=== PATIENT | female | born 1940 | race Caucasian/White ===

== ENCOUNTER 2018-04-28 10:22 | Emergency (ER) | payer MEDICARE, BC ==
[2018-04-28 10:39] VITALS: BP 132/88
--- NOTE | 2018-04-28 11:21 | UC ---
Ear Complaint HPI - History of Current Complaint Chief Complaint: UCEar Stated Complaint: LEFT EAR PAIN Time Seen by Provider: 04/28/18 10:38 Hx Obtained From: Patient ?: No Onset/Duration: Sudden Onset Severity Initially: Moderate Severity Currently: Moderate Pain Intensity: 0 Aggravating Factors: Nothing Alleviating Factors: OTC Meds Associated Signs/Symptoms: Positive: Hearing Loss - hearing loss in the left ear for some time. never had it evaluated - Allergies/Home Medications Allergies/Adverse Reactions: Allergies Allergy/AdvReac Type Severity Reaction Status Date / Time dust, animals Allergy Unknown Uncoded 04/28/18 10:40 Reaction Details Home Medications: Home Medications FLUoxetine CAP* [Prozac CAP*] 20 mg PO DAILY 04/28/18 [History Confirmed ] Fluticasone NASAL SPRAY 50MCG* [Flonase NASAL SPRAY 50MCG*] 1 spray BOTH NARES DAILY 04/28/18 [History Confirmed 04/28/18] PHENobarbital TAB(*) 97 mg PO BEDTIME 04/28/18 [History Confirmed 04/28/18] PMH/Surg Hx/FS Hx/Imm Hx Previously Healthy: Yes Neurological History: Seizures - Surgical History Surgical History: Yes Surgery Procedure, Year, and Place: right meniscus - Social History Alcohol Use: Daily Alcohol Amount: 1 wine Substance Use Type: None Smoking Status (MU): Never Smoked Tobacco Review of Systems Constitutional: Negative Skin: Negative Eyes: Negative ENT: Ear Ache - hearing loss for several months, pain in the left ear only began yesterday, Other Gastrointestinal: Negative Genitourinary: Negative Motor: Negative Neurovascular: Negative Musculoskeletal: Negative Neurological: Negative, Other - hx. of seizures Psychological: Negative Is Patient Immunocompromised?: No All Other Systems Reviewed And Are Negative: Yes Physical Exam Triage Information Reviewed: Yes Appearance: Well-Appearing Vital Signs: Initial Vital Signs Temp 36.6 C 04/28/18 10:31 Pulse 89 04/28/18 10:31 Resp 20 04/28/18 10:31 BP 132/88 04/28/18 10:31 Pulse Ox 96 04/28/18 10:31 Vital Signs Reviewed: Yes Eye Exam: Normal Eyes: Positive: Conjunctiva Clear ENT: Positive: TM red - left tm with redness, probable effusion after ceruminous impaction removed Dental Exam: Normal Neck exam: Normal Neck: Positive: Supple Respiratory Exam: Normal Respiratory: Positive: Chest non-tender, Lungs clear Cardiovascular Exam: Normal Cardiovascular: Positive: RRR Abdominal Exam: Normal Abdomen Description: Positive: Nontender Bowel Sounds: Positive: Present Psychological Exam: Normal Ear Complaint Course/Dx - Course Course Of Treatment: left ear lavaged with saline after peroxide instilled, - Differential Dx/Diagnosis Differential Diagnosis/HQI/PQRI: Otitis Media Provider Diagnoses: otitis media left. ceruminous impaction Discharge - Sign-Out/Discharge Documenting (check all that apply): Patient Departure - Discharge Plan Condition: Good Disposition: HOME Prescriptions: Amoxicillin PO (*) [Amoxicillin 875 MG (*)] 875 mg PO BID #14 tab Patient Education Materials: Ear Infection (ED) Referrals: Yen Bills MD [Primary Care Provider] - - Billing Disposition and Condition Condition: GOOD Disposition: Home
== END 2018-04-28 11:30 | disposition home or self-care (01) ==
LOC: UCCORT 10:22
DX: H66.92 Otitis media, unspecified, left ear (principal); H61.22 Impacted cerumen, left ear; R56.9 Unspecified convulsions; Z91.09 Other allergy status, other than to drugs and biological substances; Z79.899 Other long term (current) drug therapy
CPT/HCPCS: 99213; G0463

== ENCOUNTER 2019-04-26 09:18 | Emergency (ER) | payer MEDICARE, BC ==
--- OUTSIDE RECORDS SUMMARY | 2019-04-26 09:30 | XMS REPORT | Continuity of Care Document ---
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 Onset: 02/27/2011 congestive heart failure Seizure Yen Bills M.D. Onset: 02/27/2011 Vertigo Dizziness Yen Bills M.D. 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 testing Dicyclomine HCL 1 by mouth three 90caps Yen Bills, 05/20/2018 10mg times a day M.D. Capsules Phenobarbital 1 by mouth at 90tabs Yen Bills, 05/10/2017 97.2mg bedtime for M.D. Tablets seizures code c Flonase Allergy Relief 1 spray to each 6units Yen Bills, 06/22/2015 nare every day M.D. 50mcg/Act Suspension Prozac 2 by mouth every 60caps Yen Bills, 09/17/2007 20mg Capsules day M.D. Crestor 1 by mouth every 30tabs Yen Bills, 09/06/2005 10mg Tablets day M.D. Calcium With D 1 po bid Yen Bills, 08/14/2005 600mg M.D. Tablets History Medications Azithromycin take 2 tablets 6tabs E78.2 Yen Bills, 07/15/2018 - 250mg the first day; M.D. 02/18/2019 Tablets then 1 tablet daily for 4 days. Azithromycin take 2 tablets 6tabs J01.90 Yen Bills, 08/04/2015 - 250mg the first day; M.D. 05/21/2017 Tablets then 1 tablet daily for 4 days. Bentyl 1 by mouth 3 90caps Yen Bills, 06/02/2015 - 10mg Capsules times daily M.D. 07/10/2017 Naproxen 1 by mouth twice 60tabs 721.00 Yen Bills, 06/24/2014 - 500mg Tablets a day as needed M.D. 07/10/2017 Zostavax injection as 1units Yen Bills, 02/18/2013 - ordered M.D. 03/25/2014 80988Hhj/0.65ML Solution Rec Azithromycin Take 2 Tablets 6tabs 461.9 Yen Bills, 08/21/2012 - 250mg The First Day; M.D. 02/25/2015 Tablets Then 1 Tablet Daily For 4 Days. Azithromycin 1 po qd 5tabs Yen Bills, 11/09/2011 - 500mg M.D. 02/20/2012 Tablets Flonase 1 spray to each 6units Yen Bills, 02/27/2011 - 50mcg/Act nare qd M.D. 06/22/2015 Suspension Fexofenadine/Pseudoep take 1 tablet 60units Yen Bills, 07/20/2010 - hedrine twice a day if M.D. 02/25/2015 60-120mg TB12 needed Scopalamine Patch 1 to skin as 10units Yen Bills, 08/03/2009 - needed daily M.D. 02/17/2010 0.33MH/24 HRS Amoxicillin 1 po tid 21caps 451.2 Yen Bills, 07/15/2009 - 250mg M.D. 02/17/2010 Capsules Lisinopril 1 po qd 30tabs 402.10 Yen Bills, 07/01/2009 - 2.5mg M.D. 07/15/2009 Tablets Phenobarbital 1 tab every night 90tabs Yen Bills, 07/01/2009 - 64.8mg at bedtime, M.D. 05/10/2017 Tablets seizure disorder code C Helena-D 12 Hour take 1 tablet 60units Yen Bills, 03/10/2009 - twice a day if M.D. 04/01/2009 12Hour TB12 needed Azithromycin 1 PO qd 5tabs Yen Bills, 12/28/2008 - 500mg M.D. 04/01/2009 Tablets Helena D one po bid prn 60tabs Yen Bills, 02/03/2008 - 60mg;120 mg M.D. 04/07/2014 Tablets Phenobarbital 1 po qhs 30tabs Yen Bills, 09/17/2007 - 60mg M.D. 07/01/2009 Tablets Prozac 1 po qd 30caps 272.40 Yen Bills, 09/17/2007 - 20mg Capsules M.D. 02/18/2008 Zithromax Tri-Nikita 1 tab po qd for 5 5tabs 466.00 Yen Bills, 01/08/2007 - 500mg days M.D. 03/19/2007 Tablets Hydrocodone/Guaifeene 1 tsp every 8 hrs 120ml 466.00 Yen Bills, 2006 - sin Syrup as needed M.D. 03/19/2007 Flonase 1 spray to each 6units Yen Bills, 2006 - 50mcg/Webb nare qd M.D. 02/27/2011 Suspension Zyrtec D one po bid 180tabs Yen Bills, 04/06/2006 - 5mg Tablets M.D. 03/19/2008 Prozac 1 po bid 180caps Yen Bills, 03/13/2006 - 20mg Capsules M.D. 09/17/2007 Zyrtec 1 po qd bid 200tabs Yen Bills, 02/23/2006 - 5mg Tablets M.D. 04/06/2006 Flonase 1 spray to each 3units Yen Bills, 09/18/2005 - 50mcg/Webb nare qd prn M.D. 10/13/2006 Suspension Prozac 2 po qd 30caps Yen Bills, 09/14/2005 - 20mg Capsules M.D. 03/13/2006 Phenobarbital 1 qd Yen Bills, 08/14/2005 - 60mg M.D. 09/18/2005 Tablets Prozac 2 tabs po qd Yen Bills, 08/14/2005 - 20mg Capsules M.D. 09/14/2005 Flonase 1 spray to each Yen Bills, 08/14/2005 - 50mcg/Webb nare qd M.D. 09/18/2005 Suspension Zyrtec 1 PO qd 100tabs Yen Bills, 08/14/2005 - 10mg Tablets M.D. 02/23/2006 Pravachol 1 po qd Yen Bills, 08/14/2005 - 20mg Tablets M.D. 09/06/2005 Phenobarbital 1 po qd 30tabs Yen Bills, - 60mg M.D. 09/17/2007 Tablets Immunizations CPT Code Status Date Vaccine Lot # [id number] Given 07/15/2018 Influenza Virus (Afluria) Split Virus 3 Years Of Age And Older Q2035 Given 07/10/2017 Influenza Virus (Afluria) Split Virus 3 Years [id number] Of Age And Older [id number] Given 06/26/2016 Influenza Vaccine (Fluvirin) 1 Years Of Age Or [id number] Older Q2036 Given 07/23/2013 Flulaval [id number] Given 07/23/2013 Flulaval [id number] Given 07/16/2012 Influenza Vaccine (Fluvirin) 3 Years Of Age Or Older [id number] Given 07/16/2012 Influenza Vaccine (Fluvirin) 1 Years Of Age Or [id number] Older Q2036 Given 07/12/2011 Flulaval [id number] Given 06/21/2010 Influenza Vaccine [id number] Given 02/17/2010 Pneumovax Polyvalent Inj Im [id number] 51893 Given 07/01/2009 Tetanus,Diphtheria,Adut/Adol Pertussis 5433 50395 Given 07/01/2009 Influenza Vaccine [id number] 90816 Given 07/14/2008 Influenza Vaccine [id number] 46383 Given 08/02/2007 Influenza Vaccine [id number] 37959 Given 09/27/2006 Influenza Vaccine [id number] 17682 Given 09/14/2005 Influenza Vaccine [id number] 98634 Given 09/14/2000 Pneumovax Polyvalent Inj Im Vital Signs Date Vital Result Comment 04/15/2019 11:56am BP Systolic 140 mmHg BP Diastolic 80 mmHg Heart Rate 66 /min Height 61 inches 5'1" Weight 141.00 lb BMI (Body Mass Index) 26.6 kg/m2 02/27/2019 12:26pm BP Systolic 140 mmHg BP Diastolic 98 mmHg Heart Rate 83 /min Height 61 inches 5'1" Weight 142.00 lb BMI (Body Mass Index) 26.8 kg/m2 O2 % BldC Oximetry 97 % 02/18/2019 11:22am BP Systolic 140 mmHg BP Diastolic 80 mmHg Heart Rate 71 /min Height 61 inches 5'1" Weight 141.00 lb BMI (Body Mass Index) 26.6 kg/m2 O2 % BldC Oximetry 94 % 07/15/2018 2:08pm BP Systolic 138 mmHg BP Diastolic 76 mmHg Heart Rate 72 /min Respiratory Rate 18 /min Height 61 inches 5'1" Weight 143.00 lb BMI (Body Mass Index) 27.0 kg/m2 O2 % BldC Oximetry 97 % 06/04/2018 2:07pm BP Systolic 138 mmHg BP Diastolic 86 mmHg Heart Rate 61 /min Respiratory Rate 18 /min Height 61 inches 5'1" Weight 142.00 lb BMI (Body Mass Index) 26.8 kg/m2 O2 % BldC Oximetry 96 % 05/20/2018 11:46am BP Systolic 120 mmHg BP Diastolic 70 mmHg Heart Rate 81 /min Respiratory Rate 18 /min Height 61 inches 5'1" Weight 142.00 lb BMI (Body Mass Index) 26.8 kg/m2 O2 % BldC Oximetry 95 % 02/19/2018 2:43pm BP Systolic 138 mmHg BP Diastolic 80 mmHg Heart Rate 82 /min Respiratory Rate 18 /min Height 61 inches 5'1" Weight 146.00 lb BMI (Body Mass Index) 27.6 kg/m2 O2 % BldC Oximetry 94 % 07/10/2017 2:22pm BP Systolic 136 mmHg BP Diastolic 70 mmHg Respiratory Rate 18 /min Height 61 inches 5'1" Weight 146.00 lb BMI (Body Mass Index) 27.6 kg/m2 05/21/2017 11:13am BP Systolic 118 mmHg BP Diastolic 70 mmHg Height 62 inches 5'2" Weight 144.00 lb BMI (Body Mass Index) 26.3 kg/m2 05/10/2017 11:16am BP Systolic 136 mmHg BP Diastolic 80 mmHg Height 62 inches 5'2" Weight 147.00 lb BMI (Body Mass Index) 26.9 kg/m2 02/20/2017 10:03am BP Systolic 118 mmHg BP Diastolic 72 mmHg Height 62 inches 5'2" Weight 148.00 lb BMI (Body Mass Index) 27.1 kg/m2 08/01/2016 11:09am BP Systolic 118 mmHg BP Diastolic 72 mmHg Height 62 inches 5'2" Weight 146.00 lb BMI (Body Mass Index) 26.7 kg/m2 05/01/2016 10:58am BP Systolic 130 mmHg BP Diastolic 70 mmHg Height 62 inches 5'2" Weight 147.00 lb BMI (Body Mass Index) 26.9 kg/m2 02/23/2016 2:40pm BP Systolic 140 mmHg BP Diastolic 70 mmHg 08/04/2015 11:52am BP Systolic 130 mmHg BP Diastolic 76 mmHg 06/22/2015 10:51am BP Systolic 120 mmHg BP Diastolic 76 mmHg Height 63 inches 5'3" Weight 140.00 lb BMI (Body Mass Index) 24.8 kg/m2 06/02/2015 1:46pm BP Systolic 144 mmHg BP Diastolic 82 mmHg Height 63 inches 5'3" Weight 143.00 lb BMI (Body Mass Index) 25.3 kg/m2 02/25/2015 1:43pm BP Systolic 120 mmHg BP Diastolic 70 mmHg Height 63 inches 5'3" Weight 150.00 lb BMI (Body Mass Index) 26.6 kg/m2 08/10/2014 1:57pm BP Systolic 136 mmHg BP Diastolic 80 mmHg 07/01/2014 2:18pm BP Systolic 140 mmHg BP Diastolic 82 mmHg 06/24/2014 2:32pm BP Systolic 104 mmHg BP Diastolic 60 mmHg 04/07/2014 2:07pm BP Systolic 13 mmHg BP Diastolic 80 mmHg Height 62 inches 5'2" Weight 147.00 lb BMI (Body Mass Index) 26.9 kg/m2 07/16/2013 1:59pm BP Systolic 130 mmHg BP Diastolic 72 mmHg Height 62 inches 5'2" Weight 142.00 lb BMI (Body Mass Index) 26.0 kg/m2 05/29/2013 9:58am BP Systolic 146 mmHg BP Diastolic 80 mmHg Height 62 inches 5'2" Weight 143.00 lb BMI (Body Mass Index) 26.2 kg/m2 02/18/2013 10:18am BP Systolic 142 mmHg BP Diastolic 74 mmHg BP Systolic Recheck 130 mmHg BP Diastolic Recheck 80 mmHg Height 62 inches 5'2" Weight 150.00 lb BMI (Body Mass Index) 27.4 kg/m2 08/21/2012 10:57am BP Systolic 130 mmHg BP Diastolic 70 mmHg Body Temperature 99.9 F 07/29/2012 2:25pm BP Systolic 132 mmHg BP Diastolic 80 mmHg Height 61 inches 5'1" Weight 144.00 lb BMI (Body Mass Index) 27.2 kg/m2 02/20/2012 10:41am BP Systolic 132 mmHg BP Diastolic 82 mmHg Height 64 inches 5'4" Weight 148.00 lb BMI (Body Mass Index) 25.4 kg/m2 08/03/2011 10:59am BP Systolic 142 mmHg BP Diastolic 68 mmHg Height 64 inches 5'4" Weight 146.00 lb BMI (Body Mass Index) 25.1 kg/m2 02/27/2011 10:49am BP Systolic 148 mmHg BP Diastolic 88 mmHg Height 64 inches 5'4" Weight 146.00 lb BMI (Body Mass Index) 25.1 kg/m2 07/26/2010 1:51pm BP Systolic 140 mmHg BP Diastolic 78 mmHg Weight 145.00 lb 06/21/2010 1:59pm BP Systolic 120 mmHg BP Diastolic 72 mmHg Weight 145.00 lb 03/21/2010 2:10pm BP Systolic 162 mmHg BP Diastolic 80 mmHg Weight 145.00 lb 02/17/2010 10:16am BP Systolic 136 mmHg BP Diastolic 78 mmHg Weight 148.00 lb 07/29/2009 10:31am BP Systolic 120 mmHg BP Diastolic 86 mmHg Weight 145.00 lb 07/15/2009 9:59am Height 64 inches 5'4" Weight 142.00 lb BMI (Body Mass Index) 24.4 kg/m2 07/01/2009 11:42am BP Systolic 162 mmHg BP Diastolic 90 mmHg Weight 140.00 lb 06/16/2009 2:35pm BP Systolic 130 mmHg BP Diastolic 80 mmHg Weight 142.00 lb 04/01/2009 11:35am BP Systolic 136 mmHg BP Diastolic 84 mmHg Weight 148.00 lb 07/14/2008 10:21am BP Systolic 134 mmHg BP Diastolic 70 mmHg Height 64 inches 5'4" Weight 145.00 lb BMI (Body Mass Index) 24.9 kg/m2 04/20/2008 3:07pm BP Systolic Recheck 136 mmHg BP Diastolic Recheck 78 mmHg Height 64 inches 5'4" Weight 147.00 lb BMI (Body Mass Index) 25.2 kg/m2 03/19/2008 11:34am BP Systolic 122 mmHg BP Diastolic 70 mmHg Height 64 inches 5'4" Weight 147.00 lb BMI (Body Mass Index) 25.2 kg/m2 09/17/2007 10:09am BP Systolic 136 mmHg BP Diastolic 70 mmHg Height 64 inches 5'4" Weight 142.00 lb BMI (Body Mass Index) 24.4 kg/m2 03/19/2007 10:17am BP Systolic 151 mmHg BP Diastolic 65 mmHg Height 64 inches 5'4" Weight 144.00 lb BMI (Body Mass Index) 24.7 kg/m2 01/08/2007 9:49am BP Systolic 128 mmHg BP Diastolic 74 mmHg Body Temperature 96.9 F Height 64 inches 5'4" Weight 147.00 lb BMI (Body Mass Index) 25.2 kg/m2 12/19/2006 10:02am BP Systolic 120 mmHg BP Diastolic 76 mmHg Height 64 inches 5'4" Weight 149.00 lb BMI (Body Mass Index) 25.6 kg/m2 11/07/2006 2:00pm BP Systolic 142 mmHg BP Diastolic 68 mmHg Height 64 inches 5'4" Weight 145.00 lb BMI (Body Mass Index) 24.9 kg/m2 2006 10:00am BP Systolic 132 mmHg BP Diastolic 80 mmHg Height 64 inches 5'4" Weight 147.00 lb BMI (Body Mass Index) 25.2 kg/m2 03/19/2006 10:10am BP Systolic 124 mmHg BP Diastolic 80 mmHg Height 64 inches 5'4" Weight 144.00 lb BMI (Body Mass Index) 24.7 kg/m2 03/19/2006 10:09am Height 64 inches 5'4" 11/06/2005 11:17am BP Systolic 138 mmHg BP Diastolic 86 mmHg Height 64 inches 5'4" 09/18/2005 2:37pm BP Systolic 128 mmHg BP Diastolic 74 mmHg Height 64 inches 5'4" Weight 143.00 lb BMI (Body Mass Index) 24.5 kg/m2 08/14/2005 10:54am BP Systolic 124 mmHg BP Diastolic 76 mmHg Respiratory Rate 16 /min Height 64 inches 5'4" Weight 141.00 lb BMI (Body Mass Index) 24.2 kg/m2 Results Test Date Facility Test Result H/L Range Note Laboratory test 07/09/2018 [facility] Phenobarbital,Demetrio 11 g/mL 1, [address] e,Serum/[place] [address] [phone] Xray 05/20/2018 [facility] Abdominal <pending> [place] [address] Sonogram [phone] Lipid Panel 05/06/2018 [facility] Cholesterol 185 mg/dL <[address] [place] [address] [phone] HDL Cholesterol 50 mg/dL Low >50 Cholesterol/HDL Ratio 3.7 CALC <5.0 LDL Chol,Calculated 103 mg/dL High 0-100 3 Triglycerides 200 mg/dL High <150 Non-HDL Cholesterol 134 mg/dL High <130 4 Hepatic Function 05/06/2018 [facility] Alkaline Phosphatase 75 U/L 33- [address] [place], [place] [id number] [phone] Ast 20 U/L 10-35 Alt 21 U/L 6-29 Bilirubin,Total 0.3 mg/dL 0.2-1.2 Bilirubin,Direct 0.1 mg/dL < Or=0.2 Protein,Total 7.0 g/dL 6.1-8.1 Albumin 4.6 g/dL 3.6-5.1 Globulin,Calculated 2.4 g/dL 1.9-3.7 A/G Ratio 1.9 1.0-2.5 CBC W/ Diff & PLT 05/06/2018 [facility] WBC 7.2 thous/L 3.8-10.8 [address] [place] [address] [phone] RBC 4.48 mill/L 3.80-5.10 Hemoglobin 13.9 g/dL 11.7-15.5 Hematocrit 41.5 % 35.0-45.0 MCV 92.7 FL 80.0-100.0 MCH 30.9 pg 27.0-33.0 MCHC 33.4 g/dL 32.0-36.0 RDW 13.3 % 11.0-15.0 Platelet Count 288 thous/L 140-400 Platelet Sufficiency NORMAL Normal MPV 8.3 FL 7.5-12.5 Neutrophils,Absolute 3830 cells/L 4162-5152 Bands,Absolute PENDING Metamyelocytes,Absolute PENDING Myelocytes,Absolute PENDING Promyelocytes,Absolute PENDING Lymphocytes,Absolute 2270 cells/L 850-3900 Monocytes,Absolute 680 cells/L 200-950 Eosinophils,Absolute 350 cells/L 15-500 Basophils,Absolute 60 cells/L 0-200 Blast Cells,Absolute PENDING Nucleated RBC,Absolute PENDING Total Neutrophils,% 53 % 40-75 Bands,% PENDING Metamyelocytes,% PENDING Myelocytes,% PENDING Promyelocytes,% PENDING Total Lymphocytes,% 32 % 12-47 Monocytes,% 9 % 4-12 Eosinophils,% 5 % High 0-4 Basophils,% 1 % 0-1 5 Blasts,% PENDING Nucleated RBC PENDING RBC Morphology NORMAL Anisocytosis PENDING Poikilocytosis PENDING Microcytosis PENDING Macrocytosis PENDING Polychromasia PENDING Hypochromasia PENDING Target Cells PENDING Basophilic Stippling PENDING Comment PENDING Basic Metab W/O CA 05/06/2018 [facility] Sodium 140 mmol/L 135-146 [address] [place] [address] [phone] Potassium 4.3 mmol/L 3.5-5.3 Chloride 106 mmol/L 98-110 Carbon Dioxide 26 mmol/L 20-31 Glucose 97 mg/dL 65-99 6 Urea Nitrogen (BUN) 11 mg/dL 7-25 Creatinine 0.80 mg/dL 0.60-0.93 7 BUN/Creatinine Ratio 13.5 6-22 CBC W/ Diff & PLT 05/08/2017 [facility] WBC 6.7 thous/L 3.8-10.8 [address] [place] [address] [phone] RBC 4.43 mill/L 3.80-5.10 Hemoglobin 13.4 g/dL 11.7-15.5 Hematocrit 40.5 % 35.0-45.0 MCV 91.5 FL 80.0-100.0 MCH 30.2 pg 27.0-33.0 MCHC 33.0 g/dL 32.0-36.0 RDW 13.2 % 11.0-15.0 Platelet Count 282 thous/L 140-400 Platelet Sufficiency PENDING MPV 8.5 FL 7.5-12.5 Neutrophils,Absolute 3600 cells/L 7904-4479 Bands,Absolute PENDING Metamyelocytes,Absolute PENDING Myelocytes,Absolute PENDING Promyelocytes,Absolute PENDING Lymphocytes,Absolute 2220 cells/L 850-3900 Monocytes,Absolute 720 cells/L 200-950 Eosinophils,Absolute 160 cells/L 15-500 Basophils,Absolute 40 cells/L 0-200 Blast Cells,Absolute PENDING Nucleated RBC,Absolute PENDING Total Neutrophils,% 53 % 40-75 Bands,% PENDING Metamyelocytes,% PENDING Myelocytes,% PENDING Promyelocytes,% PENDING Total Lymphocytes,% 33 % 12-47 Monocytes,% 11 % 4-12 Eosinophils,% 2 % 0-4 Basophils,% 1 % 0-1 8 Blasts,% PENDING Nucleated RBC PENDING RBC Morphology PENDING Anisocytosis PENDING Poikilocytosis PENDING Microcytosis PENDING Macrocytosis PENDING Polychromasia PENDING Hypochromasia PENDING Target Cells PENDING Basophilic Stippling PENDING Comment PENDING Basic Metab W/O CA 05/08/2017 [facility] Sodium 140 mmol/L 135-146 [address] [place] [address] [phone] Potassium 4.4 mmol/L 3.5-5.3 Chloride 105 mmol/L 98-110 Carbon Dioxide 27 mmol/L 20-31 Glucose 108 mg/dL High 65-99 9 Urea Nitrogen 13 mg/dL 7-25 Creatinine 0.83 mg/dL 0.60-0.93 10 BUN/Creatinine Ratio 16.1 6-22 Lipid Panel 05/08/2017 [facility] Cholesterol 178 mg/dL 125-[address] [place] [address] [phone] HDL Cholesterol 39 mg/dL Low > Or=46 Cholesterol/HDL Ratio 4.6 < Or=5.0 LDL Chol,Calculated 92 mg/dL <130 11 Triglycerides 234 mg/dL High <150 Non-HDL Cholesterol 138 mg/dL 12 Laboratory test 05/08/2017 [facility] Phenobarbital 13.9 mg/L Low 15.0- 40.[address] [place] [address] [phone] BMP W/O Egfr 05/18/2016 [facility] Sodium 140 135-[address] mmol/[place] [address] [phone] Potassium 4.4 mmol/L 3.5-5.3 Chloride 106 mmol/L 98-110 Carbon Dioxide 26 mmol/L 20-31 Calcium 9.8 mg/dL 8.6-10.4 Glucose 95 mg/dL 65-99 13 Urea Nitrogen 16 mg/dL 7-25 Creatinine 0.87 mg/dL 0.60-0.93 14 BUN/Creatinine Ratio 18.9 6-22 Lipid Panel 05/18/2016 [facility] Cholesterol 172 mg/dL 125-[address] [place] [id number] [phone] HDL Cholesterol 46 mg/dL > Or=46 Cholesterol/HDL Ratio 3.7 < Or=5.0 LDL Chol,Calculated 95 mg/dL <130 15 Triglycerides 155 mg/dL High <150 Non-HDL Cholesterol 127 mg/dL 16 Laboratory test 05/18/2016 [facility] Hemoglobin A1c 5.5 % 0.0-5.6 [address] [place] [address] [phone] TSH & T4,Free 05/18/2016 [facility] TSH 3.41 0.40-4.[address] mIU/[place] [address] [phone] T4,Free 1.0 ng/dL 0.8-1.8 CBC W/ Diff & PLT 05/18/2016 [facility] WBC 7.3 thous/L 3.8-10.8 [address] [place] [address] [phone] RBC 4.49 mill/L 3.80-5.10 Hemoglobin 13.8 g/dL 11.7-15.5 Hematocrit 42.2 % 35.0-45.0 MCV 94.0 FL 80.0-100.0 MCH 30.7 pg 27.0-33.0 MCHC 32.6 g/dL 32.0-36.0 RDW 13.9 % 11.0-15.0 Platelet Count 287 thous/L 140-400 Platelet Sufficiency PENDING MPV 8.0 FL 7.5-11.5 Neutrophils,Absolute 3760 cells/L 9904-1429 Bands,Absolute PENDING Metamyelocytes,Absolute PENDING Myelocytes,Absolute PENDING Promyelocytes,Absolute PENDING Lymphocytes,Absolute 2400 cells/L 850-3900 Monocytes,Absolute 800 cells/L 200-950 Eosinophils,Absolute 280 cells/L 15-500 Basophils,Absolute 60 cells/L 0-200 Blast Cells,Absolute PENDING Nucleated RBC,Absolute PENDING Total Neutrophils,% 52 % 40-75 Bands,% PENDING Metamyelocytes,% PENDING Myelocytes,% PENDING Promyelocytes,% PENDING Total Lymphocytes,% 33 % 12-47 Monocytes,% 11 % 4-12 Eosinophils,% 4 % 0-4 Basophils,% 1 % 0-1 19 Blasts,% PENDING Nucleated RBC PENDING RBC Morphology PENDING Anisocytosis PENDING Poikilocytosis PENDING Microcytosis PENDING Macrocytosis PENDING Polychromasia PENDING Hypochromasia PENDING Target Cells PENDING Basophilic Stippling PENDING Comment PENDING BMP W/O Egfr 06/15/2015 [facility] Sodium 141 mmol/L 135-[address] [place] [address] [phone] Potassium 4.4 mmol/L 3.5-5.3 Chloride 105 mmol/L 98-110 Carbon Dioxide 25 mmol/L 19-30 Calcium 9.9 mg/dL 8.6-10.4 Glucose 91 mg/dL 65-99 20 Urea Nitrogen 16 mg/dL 7-25 Creatinine 0.81 mg/dL 0.60-0.93 21 BUN/Creatinine Ratio 19.6 6-22 Lipid Panel 06/15/2015 [facility] Cholesterol 171 mg/dL 125-200 [address] [place] [address] [phone] HDL Cholesterol 42 mg/dL Low > Or=46 Cholesterol/HDL Ratio 4.1 < Or=5.0 LDL Chol,Calculated 80 mg/dL <130 22 Triglycerides 244 mg/dL High <150 Non-HDL Cholesterol 129 mg/dL 23 CBC W/ Diff & PLT 06/15/2015 [facility] WBC 7.4 thous/L 3.8-10.8 [address] [place] [address] [phone] RBC 4.52 mill/L 3.80-5.10 Hemoglobin 13.6 g/dL 11.7-15.5 Hematocrit 42.2 % 35.0-45.0 MCV 93.3 FL 80.0-100.0 MCH 30.1 pg 27.0-33.0 MCHC 32.2 g/dL 32.0-36.0 RDW 13.8 % 11.0-15.0 Platelet Count 297 thous/L 140-400 Platelet Sufficiency PENDING MPV 8.2 FL 7.5-11.5 Neutrophils,Absolute 3940 cells/L 8311-0904 Bands,Absolute PENDING Metamyelocytes,Absolute PENDING Myelocytes,Absolute PENDING Promyelocytes,Absolute PENDING Lymphocytes,Absolute 2410 cells/L 850-3900 Monocytes,Absolute 760 cells/L 200-950 Eosinophils,Absolute 270 cells/L 15-500 Basophils,Absolute 60 cells/L 0-200 Blast Cells,Absolute PENDING Nucleated RBC,Absolute PENDING Total Neutrophils,% 53 % 40-75 24 Bands,% PENDING Metamyelocytes,% PENDING Myelocytes,% PENDING Promyelocytes,% PENDING Total Lymphocytes,% 32 % 12-47 Monocytes,% 10 % 4-12 Eosinophils,% 4 % 0-4 Basophils,% 1 % 0-1 Blasts,% PENDING Nucleated RBC PENDING RBC Morphology PENDING Anisocytosis PENDING Poikilocytosis PENDING Microcytosis PENDING Macrocytosis PENDING Polychromasia PENDING Hypochromasia PENDING Target Cells PENDING Basophilic Stippling PENDING Comment PENDING Laboratory test 06/15/2015 [facility] Phenobarbital 12.6 Low 15.0-40.[address] mg/[place] [address] [phone] Laboratory test 02/16/2015 [facility] Glucose,Plasma 102 High 65-99 [address] mg/[place] [address] [phone] Hemoglobin A1c 5.5 % 0.0-5.6 26 TSH & T4,Free 03/30/2014 [facility] TSH 2.21 mIU/L 0.40-4.[address] [place], [place] [id number] [phone] T4,Free 1.0 ng/dL 0.8-1.8 Lipid Panel 03/30/2014 [facility] Cholesterol 196 mg/dL 125-[address] [place] [address] [phone] HDL Cholesterol 51 mg/dL > Or=46 Cholesterol/HDL Ratio 3.8 < Or=5.0 LDL Chol,Calculated 114 mg/dL <130 28 Triglycerides 154 mg/dL High <150 Non-HDL Cholesterol 146 mg/dL 29 CBC W/ Diff & PLT 03/30/2014 [facility] WBC 7.1 thous/L 3.8-10.[address] [place], [place] [id number] [phone] RBC 4.45 mill/L 3.80-5.10 Hemoglobin 13.9 g/dL 11.7-15.5 Hematocrit 41.5 % 35.0-45.0 MCV 93.1 FL 80.0-100.0 MCH 31.2 pg 27.0-33.0 MCHC 33.5 g/dL 32.0-36.0 RDW 13.4 % 11.0-15.0 Platelet Count 309 thous/L 140-400 Platelet Sufficiency PENDING Neutrophils,Absolute 4000 cells/L 8137-0535 Bands,Absolute PENDING Metamyelocytes,Absolute PENDING Myelocytes,Absolute PENDING Promyelocytes,Absolute PENDING Lymphocytes,Absolute 2160 cells/L 850-3900 Monocytes,Absolute 710 cells/L 200-950 Eosinophils,Absolute 220 cells/L 15-500 Basophils,Absolute 30 cells/L 0-200 Blast Cells,Absolute PENDING Nucleated RBC,Absolute PENDING Total Neutrophils,% 56 % Not Established Bands,% PENDING Metamyelocytes,% PENDING Myelocytes,% PENDING Promyelocytes,% PENDING Total Lymphocytes,% 30 % Not Established Monocytes,% 10 % Not Established Eosinophils,% 3 % Not Established Basophils,% 0 % Not Established Blasts,% PENDING Nucleated RBC PENDING RBC Morphology PENDING Anisocytosis PENDING Poikilocytosis PENDING Microcytosis PENDING Macrocytosis PENDING Polychromasia PENDING Hypochromasia PENDING Target Cells PENDING Basophilic Stippling PENDING Comment PENDING Laboratory test 05/22/2013 [facility] LDL 91 mg/dL <130 [address] [place], [place] [id number] [phone] Vitamin D, 25 05/22/2013 [facility] Vitamin 39 ng/mL 30-[address] D,25-Oh,Total [place], [place] [id number] [phone] Vitamin D,25-Oh,D3 39 ng/mL Vitamin D,25-Oh,D2 <4 ng/mL 31 TSH & T4,Free 05/22/2013 [facility] TSH 2.58 mIU/L 0.40-4.[address] [place], [place] [id number] [phone] T4,Free 0.9 ng/dL 0.8-1.8 BMP W/O Egfr 05/22/2013 [facility] Sodium 141 mmol/L 135-146 6 [address] [place], [place] [id number] [phone] Potassium 4.6 mmol/L 3.5-5.3 Chloride 106 mmol/L 98-110 Carbon Dioxide 25 mmol/L 19-30 Calcium 9.2 mg/dL 8.6-10.4 Glucose 99 mg/dL 65-99 33 Urea Nitrogen 11 mg/dL 7-25 Creatinine 0.80 mg/dL 0.60-0.93 34 BUN/Creatinine Ratio 13.4 6-22 CBC W/ Diff & PLT 05/22/2013 [facility] WBC 6.4 thous/L 3.8-10.[address] [place] [address] [phone] RBC 4.43 mill/L 3.80-5.10 Hemoglobin 13.8 g/dL 11.7-15.5 Hematocrit 41.5 % 35.0-45.0 MCV 93.7 FL 80.0-100.0 MCH 31.0 pg 27.0-33.0 MCHC 33.1 g/dL 32.0-36.0 RDW 13.2 % 11.0-15.0 Platelet Count 272 thous/L 140-400 Neutrophils,Absolute 3320 cells/L 2983-4614 Lymphocytes,Absolute 2080 cells/L 850-3900 Monocytes,Absolute 720 cells/L 200-950 Eosinophils,Absolute 200 cells/L 15-500 Basophils,Absolute 60 cells/L 0-200 Total Neutrophils,% 52 % 38-80 Total Lymphocytes,% 33 % 15-49 Monocytes,% 11 % 0-13 Eosinophils,% 3 % 0-8 Basophils,% 1 % 0-2 Comp Metabolic Panel 07/16/2012 [facility] Sodium 142 mmol/L 135-[address] [place] [address] [phone] Potassium 4.4 mmol/L 3.5-5.3 Chloride 105 mmol/L 98-110 Carbon Dioxide 28 mmol/L 21-33 Calcium 9.8 mg/dL 8.6-10.4 Alkaline Phosphatase 91 U/L 33-130 Ast 20 U/L 10-35 Alt 22 U/L 6-40 Bilirubin,Total 0.3 mg/dL 0.2-1.2 Glucose 89 mg/dL 65-99 35 Urea Nitrogen 10 mg/dL 7-25 Creatinine 0.81 mg/dL 0.60-0.93 36 BUN/Creatinine Ratio 12.8 6-22 Protein,Total 6.9 g/dL 6.2-8.3 Albumin 4.4 g/dL 3.6-5.1 Globulin,Calculated 2.5 g/dL 2.2-3.9 A/G Ratio 1.8 1.0-2.1 Egfr Non-Afr. Martiniquais 72 ML/MIN/1.73M2 > Or=60 Egfr 84 ML/MIN/1.73M2 > Or=60 Hepatic Function 07/16/2012 [facility] Alkaline Phosphatase 91 U/L 33- 130 Panel [address] [place] [address] [phone] Ast 20 U/L 10-35 Alt 22 U/L 6-40 Bilirubin,Total 0.3 mg/dL 0.2-1.2 Bilirubin,Direct 0.0 mg/dL < Or=0.2 Protein,Total 6.9 g/dL 6.2-8.3 Albumin 4.4 g/dL 3.6-5.1 Globulin,Calculated 2.5 g/dL 2.2-3.9 A/G Ratio 1.8 1.0-2.1 Laboratory 07/16/2012 [facility] LDL Cholesterol,Direct 116 <130 37 test finding [address] mg/[place] [address] [phone] CBC W/ Diff & 07/16/2012 [facility] WBC 8.2 3.8-10. PLT [address] [place] [address] L [phone] RBC 4.38 mill/L 3.80-5.10 Hemoglobin 14.0 g/dL 11.7-15.5 Hematocrit 41.7 % 35.0-45.0 MCV 95.2 FL 80.0-100.0 MCH 32.0 pg 27.0-33.0 MCHC 33.6 g/dL 32.0-36.0 RDW 13.3 % 11.0-15.0 Platelet Count 347 thous/L 140-400 Platelet Sufficiency NORMAL Normal Neutrophils,Absolute 4500 cells/L 0640-4414 Lymphocytes,Absolute 2250 cells/L 850-3900 Monocytes,Absolute 900 cells/L 200-950 Eosinophils,Absolute 470 cells/L 15-500 Basophils,Absolute 70 cells/L 0-200 Total Neutrophils,% 55 % 38-80 Total Lymphocytes,% 27 % 15-49 Monocytes,% 11 % 0-13 Eosinophils,% 6 % 0-8 Basophils,% 1 % 0-2 RBC Morphology NORMAL Laboratory 07/16/2012 [facility] Phenobarbital 10.3 Low 15.0-40.0 test finding [address] mg/[place] [address] [phone] Laboratory 07/24/2011 [facility] LDL 108 <130 38 test finding [address] Cholesterol,Direc mg/[place] [address] t [phone] Basic 07/24/2011 [facility] Sodium 140 135-146 Metabolic [address] mmol/[place] [address] [phone] Potassium 4.6 mmol/L 3.5-5.3 Chloride 105 mmol/L 98-110 Carbon Dioxide 26 mmol/L 21-33 Calcium 9.9 mg/dL 8.6-10.2 Glucose 91 mg/dL 65-99 39 Urea Nitrogen 17 mg/dL 7-25 Creatinine 0.86 mg/dL 0.63-1.22 BUN/Creatinine Ratio 20.1 6-22 Egfr Non-Afr. Martiniquais 67 ML/MIN/1.73M2 > Or=60 Egfr 78 ML/MIN/1.73M2 > Or=60 CBC W/ Diff & PLT 07/24/2011 [facility] WBC 6.8 thous/L 3.8-10.[address] [place] [address] [phone] RBC 4.35 mill/L 3.80-5.10 Hemoglobin 13.6 g/dL 11.7-15.5 Hematocrit 41.3 % 35.0-45.0 MCV 94.8 FL 80.0-100.0 MCH 31.3 pg 27.0-33.0 MCHC 33.0 g/dL 32.0-36.0 RDW 13.0 % 11.0-15.0 Platelet Count 285 thous/L 140-400 Neutrophils,Absolute 3390 cells/L 8610-5391 Lymphocytes,Absolute 2270 cells/L 850-3900 Monocytes,Absolute 770 cells/L 200-950 Eosinophils,Absolute 330 cells/L 15-500 Basophils,Absolute 50 cells/L 0-200 Total Neutrophils,% 50 % 38-80 Total Lymphocytes,% 33 % 15-49 Monocytes,% 11 % 0-13 Eosinophils,% 5 % 0-8 Basophils,% 1 % 0-2 Laboratory test 02/20/2011 [facility] LDL Cholesterol,Direct 109 mg/dL < 130 [address] [place] [address] [phone] HDL Cholesterol 47 mg/dL > Or=46 Cholesterol 182 mg/dL 125-200 Triglycerides 181 mg/dL High <150 Laboratory test 07/22/2010 [facility] Polyp Colon See Note [address] [place] [address] [phone] CBC W/ Diff & PLT 07/19/2010 [facility] WBC 7.6 3.8-10. [address] thous/L 8 [place] [address] [phone] RBC 4.20 mill/L 3.80-5.10 Hemoglobin 13.5 g/dL 11.7-15.5 Hematocrit 39.0 % 35.0-45.0 MCV 92.9 FL 80.0-100.0 MCH 32.1 pg 27.0-33.0 MCHC 34.5 g/dL 32.0-36.0 RDW 12.6 % 11.0-15.0 Platelet Count 370 thous/L 140-400 Platelet Sufficiency NORMAL Normal Neutrophils,Absolute 4280 cells/L 3443-6012 Bands,Absolute DNR cells/L 0-750 Metamyelocytes,Absolute DNR cells/L 0 Myelocytes,Absolute DNR cells/L 0 Promyelocytes,Absolute DNR cells/L 0 Lymphocytes,Absolute 2220 cells/L 850-3900 Monocytes,Absolute 750 cells/L 200-950 Eosinophils,Absolute 310 cells/L 15-500 Basophils,Absolute 60 cells/L 0-200 Blast Cells,Absolute DNR cells/L 0 Nucleated RBC,Absolute DNR cells/L 0 Total Neutrophils,% 56 % 38-80 Bands,% DNR % 0-10 Metamyelocytes,% DNR % Myelocytes,% DNR % Promyelocytes,% DNR % Total Lymphocytes,% 29 % 15-49 Monocytes,% 10 % 0-13 Eosinophils,% 4 % 0-8 Basophils,% 1 % 0-2 Blasts,% DNR % Nucleated RBC DNR /100WBC 0 RBC Morphology NORMAL Anisocytosis DNR Poikilocytosis DNR Microcytosis DNR Macrocytosis DNR Polychromasia DNR Hypochromasia DNR Target Cells DNR Basophilic Stippling DNR Comment DNR Basic Metabolic Panel 07/19/2010 [facility] Sodium 140 mmol/L 135-[address] [place] [address] [phone] Potassium 4.7 mmol/L 3.5-5.3 Chloride 104 mmol/L 98-110 Carbon Dioxide 27 mmol/L 21-33 Calcium 9.7 mg/dL 8.6-10.2 Glucose 88 mg/dL 65-99 42 Urea Nitrogen 13 mg/dL 7-25 Creatinine 0.75 mg/dL 0.63-1.22 BUN/Creatinine Ratio 16.8 6-22 Egfr Non-Afr. Martiniquais >60 ML/MIN/1.73M2 > Or=60 Egfr >60 ML/MIN/1.73M2 > Or=60 Lipid Panel 07/19/2010 [facility] Cholesterol 168 mg/dL 125-[address] [place] [address] [phone] HDL Cholesterol 44 mg/dL Low > Or=46 Triglycerides 211 mg/dL High <150 Cholesterol/HDL Ratio 3.8 < Or=5.0 LDL Chol,Calculated 82 mg/dL <130 43 Hepatic Function 07/19/2010 [facility] Alkaline Phosphatase 72 U/L 33- [address] [place] [address] [phone] Ast 18 U/L 10-35 Alt 17 U/L 6-40 Bilirubin,Total 0.3 mg/dL 0.2-1.2 Bilirubin,Direct 0.1 mg/dL < Or=0.2 Protein,Total 6.8 g/dL 6.2-8.3 Albumin 4.4 g/dL 3.6-5.1 Globulin,Calculated 2.4 g/dL 2.2-3.9 A/G Ratio 1.9 1.0-2.1 Laboratory 07/19/2010 [facility] Phenobarbital 12.7 Low 15.0-40.0 test finding [address] mg/[place] [address] [phone] Laboratory 03/15/2010 [facility] Phenobarbital 10.9 Low 15.0-40.0 44 test finding [address] mg/[place] [address] [phone] Hepatic 03/15/2010 [facility] Alkaline 61 U/L 33-130 Function Panel [address] [place] [address] [phone] Ast 22 U/L 10-35 Alt 23 U/L 6-40 Bilirubin,Total 0.3 mg/dL 0.2-1.2 Bilirubin,Direct 0.1 mg/dL < Or=0.2 Protein,Total 6.8 g/dL 6.2-8.3 Albumin 4.5 g/dL 3.6-5.1 Globulin,Calculated 2.3 g/dL 2.2-3.9 A/G Ratio 1.9 1.0-2.1 Lipid Panel 03/15/2010 [facility] Cholesterol 184 mg/dL 125-[address] [place] [address] [phone] HDL Cholesterol 46 mg/dL > Or=46 Cholesterol/HDL Ratio 4.0 < Or=5.0 LDL Chol,Calculated 97 mg/dL <130 45 Triglycerides 205 mg/dL High <150 Laboratory test 07/06/2009 [facility] Iron,Total 115 g/dL 40-[address] [place] [address] [phone] Arthritis Profile 07/06/2009 [facility] Uric Acid 5.6 mg/dL 2.5-7.[address] [place] [address] [phone] Rheumatoid Factor 6 IU/mL <14 Aso AB 122 IU/mL <201 Anachoice (TM) Screen NEGATIVE Negative 46 Laboratory 07/06/2009 [facility] Heterophile,Davidson NEGATIVE Negative test finding [address] [place] [address] [phone] Hepatic 07/06/2009 [facility] Alkaline 71 U/L 33-130 Function Panel [address] [place] [address] [phone] Ast 19 U/L 10-35 Alt 19 U/L 6-40 Bilirubin,Total 0.3 mg/dL 0.2-1.2 Bilirubin,Direct 0.0 mg/dL < Or=0.2 Protein,Total 6.9 g/dL 6.2-8.3 Albumin 4.4 g/dL 3.6-5.1 Globulin,Calculated 2.5 g/dL 2.2-3.9 A/G Ratio 1.8 1.0-2.1 Lipid Panel 06/17/2009 [facility] Cholesterol 184 mg/dL 125-[address] [place] [address] [phone] HDL Cholesterol 51 mg/dL > Or=46 Triglycerides 193 mg/dL High <150 Cholesterol/HDL Ratio 3.6 < Or=5.0 LDL Chol,Calculated 94 mg/dL <130 48 Basic Metabolic Panel 06/17/2009 [facility] Sodium 140 mmol/L 135-146 [address] [place] [address] [phone] Potassium 4.4 mmol/L 3.5-5.3 Chloride 104 mmol/L 98-110 Carbon Dioxide 27 mmol/L 21-33 Calcium 9.3 mg/dL 8.6-10.2 Glucose 89 mg/dL 65-99 49 Urea Nitrogen 9 mg/dL 7-25 Creatinine 0.80 mg/dL 0.63-1.22 BUN/Creatinine Ratio 10.9 6-22 Egfr Non-Afr. Martiniquais >60 ML/MIN/1.73M2 > Or=60 Egfr >60 ML/MIN/1.73M2 > Or=60 CBC W/ Diff & PLT 06/17/2009 [facility] WBC 6.3 thous/L 3.8-10.8 [address] [place] [address] [phone] RBC 4.51 mill/L 3.80-5.10 Hemoglobin 14.1 g/dL 11.7-15.5 Hematocrit 41.8 % 35.0-45.0 MCV 92.7 FL 80.0-100.0 MCH 31.4 pg 27.0-33.0 MCHC 33.8 g/dL 32.0-36.0 RDW 13.4 % 11.0-15.0 Platelet Count 312 thous/L 140-400 Platelet Sufficiency NORMAL Normal Neutrophils,Absolute 3090 cells/L 8403-6202 Bands,Absolute DNR cells/L 0-750 Metamyelocytes,Absolute DNR cells/L 0 Myelocytes,Absolute DNR cells/L 0 Promyelocytes,Absolute DNR cells/L 0 Lymphocytes,Absolute 2280 cells/L 850-3900 Monocytes,Absolute 630 cells/L 200-950 Eosinophils,Absolute 280 cells/L 15-500 Basophils,Absolute 60 cells/L 0-200 Blast Cells,Absolute DNR cells/L 0 Nucleated RBC,Absolute DNR cells/L 0 Total Neutrophils,% 49 % 38-80 Bands,% DNR % 0-10 Metamyelocytes,% DNR % Myelocytes,% DNR % Promyelocytes,% DNR % Total Lymphocytes,% 36 % 15-49 Monocytes,% 10 % 0-13 Eosinophils,% 4 % 0-8 Basophils,% 1 % 0-2 Blasts,% DNR % Nucleated RBC DNR /100WBC 0 RBC Morphology NORMAL Anisocytosis DNR Poikilocytosis DNR Microcytosis DNR Macrocytosis DNR Polychromasia DNR Hypochromasia DNR Target Cells DNR Basophilic Stippling DNR Comment DNR Laboratory test 06/17/2009 [facility] TSH,3RD 2.58 mU/L 0.40-4.50 [address] [place] [address] [phone] T4,Free 1.0 ng/dL 0.8-1.8 CBC W/ Diff & PLT 03/12/2009 [facility] WBC 7.8 thous/L 3.8-10.[address] [place] [address] [phone] RBC 4.20 mill/L 3.80-5.10 Hemoglobin 13.3 g/dL 11.7-15.5 Hematocrit 38.7 % 35.0-45.0 MCV 92.1 FL 80.0-100.0 MCH 31.8 pg 27.0-33.0 MCHC 34.5 g/dL 32.0-36.0 RDW 12.6 % 11.0-15.0 Platelet Count 401 thous/L High 140-400 Platelet Sufficiency NORMAL Normal Neutrophils,Absolute 4380 cells/L 1187-5197 Bands,Absolute DNR cells/L 0-750 Metamyelocytes,Absolute DNR cells/L 0 Myelocytes,Absolute DNR cells/L 0 Promyelocytes,Absolute DNR cells/L 0 Lymphocytes,Absolute 2250 cells/L 850-3900 Monocytes,Absolute 690 cells/L 200-950 Eosinophils,Absolute 390 cells/L 15-500 Basophils,Absolute 70 cells/L 0-200 Blast Cells,Absolute DNR cells/L 0 Nucleated RBC,Absolute DNR cells/L 0 Total Neutrophils,% 56 % 38-80 Bands,% DNR % 0-10 Metamyelocytes,% DNR % Myelocytes,% DNR % Promyelocytes,% DNR % Total Lymphocytes,% 29 % 15-49 Monocytes,% 9 % 0-13 Eosinophils,% 5 % 0-8 Basophils,% 1 % 0-2 Blasts,% DNR % Nucleated RBC DNR /100WBC 0 RBC Morphology NORMAL Anisocytosis DNR Poikilocytosis DNR Microcytosis DNR Macrocytosis DNR Polychromasia DNR Hypochromasia DNR Target Cells DNR Basophilic Stippling DNR Comment DNR Basic Metabolic Panel 03/12/2009 [facility] Sodium 140 mmol/L 135-[address] [place] [address] [phone] Potassium 4.4 mmol/L 3.5-5.3 Chloride 104 mmol/L 98-110 Carbon Dioxide 28 mmol/L 21-33 Calcium 9.4 mg/dL 8.6-10.2 Glucose 95 mg/dL 65-99 51 Urea Nitrogen 11 mg/dL 7-25 Creatinine 0.86 mg/dL 0.63-1.22 BUN/Creatinine Ratio 13.3 6-22 Egfr Non-Afr. Martiniquais >60 ML/MIN/1.73M2 > Or=60 Egfr >60 ML/MIN/1.73M2 > Or=60 Hepatic Function 03/12/2009 [facility] Alkaline Phosphatase 84 U/L 33- 130 Panel [address] [place] [address] [phone] Ast 21 U/L 10-35 Alt 17 U/L 6-40 Bilirubin,Total 0.2 mg/dL 0.2-1.2 Bilirubin,Direct 0.1 mg/dL < Or=0.2 Protein,Total 6.8 g/dL 6.2-8.3 Albumin 4.4 g/dL 3.6-5.1 Globulin,Calculated 2.4 g/dL 2.2-3.9 A/G Ratio 1.8 1.0-2.1 Laboratory test 03/12/2009 [facility] TSH,3RD 2.71 mU/L 0.40-4.50 [address] [place] [address] [phone] Lipid Panel 06/30/2008 [facility] Cholesterol 185 mg/dL 125-[address] [place] [address] [phone] HDL Cholesterol 54 mg/dL > Or=46 Cholesterol/HDL Ratio 3.4 < Or=5.0 LDL Chol,Calculated 102 mg/dL <130 53 Triglycerides 145 mg/dL <150 Laboratory test 04/23/2008 [facility] Pathology Exam (SEE NOTE) 54 finding [address] [place] [address] [phone] Culture,Urine,Void 03/19/2008 [facility] Source URINE-CC ed [address] [place] [address] [phone] Preliminary Report DNR Interim Report DNR Organism #1 DNR Organism #2 DNR Organism #3 DNR Organism #4 DNR 4399 DNR CBC W/ Diff & PLT 03/03/2008 [facility] WBC 7.2 thous/L 3.8-10.8 [address] [place] [address] [phone] RBC 4.39 mill/L 3.80-5.10 Hemoglobin 13.7 g/dL 11.7-15.5 Hematocrit 39.9 % 35.0-45.0 MCV 90.7 FL 80.0-100.0 MCH 31.1 pg 27.0-33.0 MCHC 34.3 g/dL 32.0-36.0 RDW 13.5 % 11.0-15.0 Platelet Count 332 thous/L 140-400 Platelet Sufficiency NORMAL Normal Neutrophils,Absolute 3350 cells/L 5043-0332 Bands,Absolute DNR cells/L 0-750 Metamyelocytes,Absolute DNR cells/L 0 Myelocytes,Absolute DNR cells/L 0 Promyelocytes,Absolute DNR cells/L 0 Lymphocytes,Absolute 2720 cells/L 850-3900 Monocytes,Absolute 770 cells/L 200-950 Eosinophils,Absolute 250 cells/L 15-500 Basophils,Absolute 70 cells/L 0-200 Blast Cells,Absolute DNR cells/L 0 Nucleated RBC,Absolute DNR cells/L 0 Total Neutrophils,% 47 % 38-80 Bands,% DNR % 0-10 Metamyelocytes,% DNR % Myelocytes,% DNR % Promyelocytes,% DNR % Total Lymphocytes,% 38 % 15-49 Monocytes,% 11 % 0-13 Eosinophils,% 3 % 0-8 Basophils,% 1 % 0-2 Blasts,% DNR % Nucleated RBC DNR /100WBC 0 RBC Morphology NORMAL Anisocytosis DNR Poikilocytosis DNR Microcytosis DNR Macrocytosis DNR Polychromasia DNR Hypochromasia DNR Target Cells DNR Basophilic Stippling DNR Comment DNR Basic Metabolic Panel 03/03/2008 [facility] Sodium 141 mmol/L 135-[address] [place], [place] [address] [phone] Potassium 4.6 mmol/L 3.5-5.3 Chloride 104 mmol/L 98-110 Carbon Dioxide 30 mmol/L 21-33 Calcium 9.6 mg/dL 8.6-10.2 Glucose 93 mg/dL 65-99 55 Urea Nitrogen 14 mg/dL 7-25 Creatinine 0.81 mg/dL 0.50-1.20 BUN/Creatinine Ratio 17.8 6-22 Egfr Non-Afr. Martiniquais >60 ML/MIN/1.7 > Or=60 Egfr >60 ML/MIN/1.7 > Or=60 Lipid Panel 03/03/2008 [facility] Cholesterol 176 mg/dL 125-[address] [place], [place] [address] [phone] HDL Cholesterol 48 mg/dL > Or=40 56 Cholesterol/HDL Ratio 3.7 < Or=5.0 LDL Chol,Calculated 104 mg/dL <130 57 Triglycerides 120 mg/dL <150 Laboratory test 03/03/2008 [facility] TSH,3RD 2.90 mU/L 0.40-4.50 [address] [place], [place] [id number] [phone] T4,Free 1.2 ng/dL 0.8-1.8 Lipid Panel 09/04/2007 [facility] Cholesterol 213 mg/dL High 125-[address] [place], [place] [address] [phone] HDL Cholesterol 47 mg/dL > Or=40 59 Cholesterol/HDL Ratio 4.5 < Or=5.0 LDL Chol,Calculated 122 mg/dL <130 60 Triglycerides 218 mg/dL High <150 CBC W/ Diff & PLT 03/07/2007 [facility] WBC 6.9 thous/L 3.8-10.[address] [place] [address] [phone] RBC 4.42 mill/L 3.80-5.10 Hemoglobin 13.9 g/dL 11.7-15.5 Hematocrit 40.1 % 35.0-45.0 MCV 90.6 FL 80.0-100.0 MCH 31.4 pg 27.0-33.0 MCHC 34.6 g/dL 32.0-36.0 RDW 13.3 % 11.0-15.0 Platelet Count 313 thous/L 140-400 Platelet Sufficiency NORMAL Normal Neutrophils,Absolute 3870 cells/L 4234-5122 Bands,Absolute DNR cells/L 0-750 Metamyelocytes,Absolute DNR cells/L 0 Myelocytes,Absolute DNR cells/L 0 Promyelocytes,Absolute DNR cells/L 0 Lymphocytes,Absolute 2150 cells/L 850-3900 Monocytes,Absolute 610 cells/L 200-950 Eosinophils,Absolute 290 cells/L 15-500 Basophils,Absolute 30 cells/L 0-200 Blast Cells,Absolute DNR cells/L 0 Nucleated RBC,Absolute DNR cells/L 0 Total Neutrophils,% 56 % 38-80 Bands,% DNR % 0-10 Metamyelocytes,% DNR % Myelocytes,% DNR % Promyelocytes,% DNR % Total Lymphocytes,% 31 % 15-49 Monocytes,% 9 % 0-13 Eosinophils,% 4 % 0-8 Basophils,% 0 % 0-2 Blasts,% DNR % Nucleated RBC DNR /100WBC 0 RBC Morphology NORMAL Anisocytosis DNR Poikilocytosis DNR Microcytosis DNR Macrocytosis DNR Polychromasia DNR Hypochromasia DNR Target Cells DNR Basophilic Stippling DNR Comment DNR Phenobarbital & 03/07/2007 [facility] Phenobarbital 11.8 Low 15.0-40.0 [address] mg/[place] [address] [phone] Phenytoin (Dilantin) <2.5 mg/L Low 10.0-20.0 61 Hepatic Function 03/07/2007 [facility] Alkaline Phosphatase 72 U/L 33- [address] [place] [address] [phone] Ast 22 U/L 10-35 Alt 16 U/L 6-40 Bilirubin,Total 0.4 mg/dL 0.2-1.2 Bilirubin,Direct 0.1 mg/dL < Or=0.2 Protein,Total 6.9 g/dL 6.2-8.3 Albumin 4.3 g/dL 3.6-5.1 Lipid Panel 03/07/2007 [facility] Cholesterol 173 mg/dL 125-[address] [place] [address] [phone] HDL Cholesterol 48 mg/dL > Or=40 62 Cholesterol/HDL Ratio 3.6 < Or=5.0 LDL Chol,Calculated 101 mg/dL <130 63 Triglycerides 120 mg/dL <150 Basic Metabolic Panel 03/07/2007 [facility] Sodium 141 mmol/L 135-[address] [place] [address] [phone] Potassium 4.3 mmol/L 3.5-5.3 Chloride 106 mmol/L 98-110 Carbon Dioxide 28 mmol/L 21-33 Calcium 9.3 mg/dL 8.6-10.2 Glucose 93 mg/dL 65-99 64 Urea Nitrogen 12 mg/dL 7-25 Creatinine 0.9 mg/dL 0.5-1.2 BUN/Creatinine Ratio 13.5 6-22 GFR Estimated >60 ML/MIN/1.7 >59 65 Laboratory 12/12/2006 [facility] Phenobarbital <5.0 Low 15.0-40.0 66, 67 test finding [address] mg/[place] [address] [phone] Hemoglobin A1c 5.8 % <6.0 Lipid Panel 09/12/2006 [facility] Cholesterol 218 mg/dL High <[address] [place] [address] [phone] HDL Cholesterol 58 mg/dL >40 69 Cholesterol/HDL Ratio 3.8 <4.4 LDL Chol,Calculated 120 mg/dL <130 70 Triglycerides 201 mg/dL High <150 Laboratory test finding 03/07/2006 [facility] TSH 1.99 mU/L 0.40-5.[address] [place] [address] [phone] CBC W/ Diff & PLT 03/07/2006 [facility] WBC 6.3 thous/L 3.8-10.8 [address] [place] [address] [phone] RBC 4.52 mill/L 3.80-5.10 Hemoglobin 13.7 g/dL 11.7-15.5 Hematocrit 40.8 % 35.0-45.0 MCV 90.0 FL 80.0-100.0 MCH 30.3 pg 27.0-33.0 MCHC 33.6 g/dL 32.0-36.0 RDW 13.3 % 11.0-15.0 Platelet Count 342 thous/L 140-400 Platelet Sufficiency NORMAL Neutrophils,Absolute 3310 cells/L 8215-7367 Bands,Absolute DNR cells/L 0-750 Metamyelocytes,Absolute DNR cells/L 0 Myelocytes,Absolute DNR cells/L 0 Promyelocytes,Absolute DNR cells/L 0 Lymphocytes,Absolute 2210 cells/L 850-3900 Monocytes,Absolute 490 cells/L 200-950 Eosinophils,Absolute 210 cells/L 15-500 Basophils,Absolute 30 cells/L 0-200 Blast Cells,Absolute DNR cells/L 0 Nucleated RBC,Absolute DNR cells/L 0 Total Neutrophils,% 53 % 38-80 Bands,% DNR % 0-10 Metamyelocytes,% DNR % Myelocytes,% DNR % Promyelocytes,% DNR % Total Lymphocytes,% 35 % 15-49 Monocytes,% 8 % 0-13 Eosinophils,% 3 % 0-8 Basophils,% 1 % 0-2 Blasts,% DNR % Nucleated RBC DNR /100WBC 0 RBC Morphology NORMAL Anisocytosis DNR Poikilocytosis DNR Microcytosis DNR Macrocytosis DNR Polychromasia DNR Hypochromasia DNR Target Cells DNR Basophilic Stippling DNR Comment DNR Basic Metabolic Panel 03/07/2006 [facility] Sodium 142 mmol/L 135-146 [address] [place] [address] [phone] Potassium 4.5 mmol/L 3.5-5.3 Chloride 106 mmol/L 98-110 Carbon Dioxide 25 mmol/L 21-33 Calcium 9.6 mg/dL 8.5-10.4 Glucose 92 mg/dL 65-99 71 Urea Nitrogen 15 mg/dL 7-30 Creatinine 0.8 mg/dL 0.5-1.2 BUN/Creatinine Ratio 17.6 6-25 GFR Estimated >60 ML/MIN/1.7 >59 72 Lipid Panel 03/07/2006 [facility] Cholesterol 190 mg/dL <[address] [place], [place] [id number] [phone] HDL Cholesterol 49 mg/dL >40 73 Cholesterol/HDL Ratio 3.9 <4.4 LDL Chol,Calculated 110 mg/dL <130 74 Triglycerides 156 mg/dL High <150 Laboratory test 09/06/2005 [facility] CK,Total 75 U/L 20-[address] [place] [address] [phone] Hepatic Function 09/06/2005 [facility] Alkaline 89 U/L 20-[address] [place] [address] [phone] Ast 20 U/L 3-35 Alt 19 U/L 3-40 Bilirubin,Total 0.5 mg/dL 0.2-1.3 Bilirubin,Direct 0.1 mg/dL 0.0-0.3 Protein,Total 7.0 g/dL 6.0-8.3 Albumin 4.3 g/dL 3.2-4.6 Lipid Panel 09/06/2005 [facility] Cholesterol 201 mg/dL High <[address] [place], [place] [address] [phone] HDL Cholesterol 60 mg/dL >40 75 Triglycerides 142 mg/dL <150 Cholesterol/HDL Ratio 3.4 <4.4 LDL Chol,Calculated 113 mg/dL <130 76 Lipid Panel 08/01/2005 [facility] Cholesterol 236 mg/dL High <[address] [place] [address] [phone] Triglycerides 245 mg/dL High <150 HDL Cholesterol 43 mg/dL >40 77 Cholesterol/HDL Ratio 5.5 High <4.4 LDL Chol,Calculated 144 mg/dL High <130 78 1 FASTING 2 Reporting Limit: 0.50 mcg/mL Reported optimal range for free Phenobarbital: 7.5 - 20 mcg/mL. Analysis by High Performance Liquid Chromatography (HPLC) This test performed at: [facility] [address] [place] [id number] Director: Darrick Bower, PhD 3 LDL-C is now calculated using the Lyle calculation, which is a validated novel method providing better accuracy than the Friedewald equation in the estimation of LDL-C. Tony PENA et al.KIRAN.2013;31019):0526-4499 Desirable range <100 mg/dL for primary prevention; <70 mg/dL for patients with CHD or diabetic patients with >or=2 CHD risk factors. For additional information, please refer to [email or web address](This link is being provided for informational/educational purposes only.) 4 For patients with diabetes plus 1 major ASCVD risk factor, treating to a non-HDL-C goal of <100 mg/dL (LDL-C of <70 mg/ dL) is considered a therapeutic option. 5 Relative blood cell counts (%) should be compared with absolute cell counts (cells/mcL). Relative counts may not be clinically meaningful if the absolute count of one or more cell type is decreased. Reference ranges for relative cell counts derived from: A Manual of Laboratory and Diagnostics Tests, 9th Ed, J[employer] & [employer]vert, 2015. Pediatric Reference Intervals, 7th Ed, [employer], 2011. 6 GLUCOSE REFERENCE RANGE BASED ON FASTING SPECIMEN. 7 The upper reference limit for Creatinine is approximately 13% higher for people identified as -[place]. 8 Relative blood cell counts (%) should be compared with absolute cell counts (cells/mcL). Relative counts may not be clinically meaningful if the absolute count of one or more cell type is decreased. Reference ranges for relative cell counts derived from: A Manual of Laboratory and Diagnostics Tests, 9th Ed, [employer]vert, 2015. Pediatric Reference Intervals, 7th Ed, [employer], 2011. 9 GLUCOSE REFERENCE RANGE BASED ON FASTING SPECIMEN. 10 The upper reference limit for Creatinine is approximately 13% higher for people identified as -[place]. 11 LDL-CHOLESTEROL RISK CATEGORY* GOAL VERY HIGH (E.G. DIABETES + CVD) <70 MG/DL HIGH (DIABETICS; CHD RISK EQUIVALENTS) <100 MG/DL MODERATELY HIGH (MULTIPLE(2+) RISK FACTORS) <130 MG/DL 0 TO 1 RISK FACTORS <160 MG/DL * NCEP REPORT. CIRCULATION 2004; 110: 227-239 12 Target for non-HDL cholesterol is 30 mg/dL higher than LDL cholesterol target. 13 GLUCOSE REFERENCE RANGE BASED ON FASTING SPECIMEN. 14 The upper reference limit for Creatinine is approximately 13% higher for people identified as -[place]. 15 LDL-CHOLESTEROL RISK CATEGORY* GOAL VERY HIGH (E.G. DIABETES + CVD) <70 MG/DL HIGH (DIABETICS; CHD RISK EQUIVALENTS) <100 MG/DL MODERATELY HIGH (MULTIPLE(2+) RISK FACTORS) <130 MG/DL 0 TO 1 RISK FACTORS <160 MG/DL * NCEP REPORT. CIRCULATION 2004; 110: [phone] 16 Target for non-HDL cholesterol is 30 mg/dL higher than LDL cholesterol target. 17 According to ADA guidelines, hemoglobin A1c <7.0% represents optimal control in non- diabetic patients. Different metrics may apply to specific patient populations. Standards of Medical Care in Diabetes-2013. Diabetes Care. 2013;36:s11-s66 For the purpose of screening for the presence of diabetes: A1C VALUE INTERPRETATION <5.7% Consistent with the absence of diabetes 5.7 - 6.4% Consistent with increased risk for diabetes (prediabetes) > or=6.5% Consistent with diabetes Currently, no consensus exists regarding use of hemoglobin A1C for diagnosis of diabetes in children. 18 REFERENCE RANGES BELOW ARE APPLICABLE TO FEMALES FIRST TRIMESTER - 0.26 - 2.66 mIU/L SECOND TRIMESTER - 0.55 - 2.73 mIU/L THIRD TRIMESTER - 0.43 - 2.91 mIU/L 19 Relative blood cell counts (%) should be compared with absolute cell counts (cells/mcL). Relative counts may not be clinically meaningful if the absolute count of one or more cell type is decreased. Reference ranges for relative cell counts derived from: A Manual of Laboratory and Diagnostics Tests, 9th Ed, [employer], 2015. Pediatric Reference Intervals, 7th Ed, [facility] [employer], 2011. 20 GLUCOSE REFERENCE RANGE BASED ON FASTING SPECIMEN. 21 The upper reference limit for Creatinine is approximately 13% higher for people identified as -Martiniquais. 22 LDL-CHOLESTEROL RISK CATEGORY* GOAL VERY HIGH (E.G. DIABETES + CVD) <70 MG/DL HIGH (DIABETICS; CHD RISK EQUIVALENTS) <100 MG/DL MODERATELY HIGH (MULTIPLE(2+) RISK FACTORS) <130 MG/DL 0 TO 1 RISK FACTORS <160 MG/DL * NCEP REPORT. CIRCULATION 2004; 110: [phone] 23 Target for non-HDL cholesterol is 30 mg/dL higher than LDL cholesterol target. 24 The reference ranges for relative (%) differential counts are derived from Pediatric Reference Intervals, 7th Ed, [employer], 2011. Relative differential counts should be interpreted in the context of absolute cell counts, particularly when absolute counts of one or more cell type are decreased. 25 Fasting Reference Interval 65-99 mg/dL Impaired: 100 - 125 mg/dL Diabetes: >125 mg/dL 26 According to ADA guidelines, hemoglobin A1c <7.0% represents optimal control in non- diabetic patients. Different metrics may apply to specific patient populations. Standards of Medical Care in Diabetes-2013. Diabetes Care. 2013;36:s11-s66 For the purpose of screening for the presence of diabetes: A1C VALUE INTERPRETATION <5.7% Consistent with the absence of diabetes 5.7 - 6.4% Consistent with increased risk for diabetes (prediabetes) > or=6.5% Consistent with diabetes Currently, no consensus exists regarding use of hemoglobin A1C for diagnosis of diabetes in children. 27 REFERENCE RANGES BELOW ARE APPLICABLE TO FEMALES FIRST TRIMESTER - 0.26 - 2.66 mIU/L SECOND TRIMESTER - 0.55 - 2.73 mIU/L THIRD TRIMESTER - 0.43 - 2.91 mIU/L 28 LDL-CHOLESTEROL RISK CATEGORY* GOAL VERY HIGH (E.G. DIABETES + CVD) <70 MG/DL HIGH (DIABETICS; CHD RISK EQUIVALENTS) <100 MG/DL MODERATELY HIGH (MULTIPLE(2+) RISK FACTORS) <130 MG/DL 0 TO 1 RISK FACTORS <160 MG/DL * NCEP REPORT. CIRCULATION 2004; 110: [phone] 29 Target for non-HDL cholesterol is 30 mg/dL higher than LDL cholesterol target. 30 LDL-CHOLESTEROL RISK CATEGORY* GOAL VERY HIGH (E.G. DIABETES + CVD) <70 MG/DL HIGH (DIABETICS; CHD RISK EQUIVALENTS) <100 MG/DL MODERATELY HIGH (MULTIPLE(2+) RISK FACTORS) <130 MG/DL 0 TO 1 RISK FACTORS <160 MG/DL * NCEP REPORT. CIRCULATION 2004; 110: [phone] 31 25-OHD3 indicates both endogenous production and supplementation. 25-OHD2 is an indicator of exogenous sources such as diet or supplementation. Therapy is based on measurement of Total 25-OHD, with levels <20 ng/mL indicative of Vitamin D deficiency while levels between 20 ng/mL and 30 ng/mL suggest insufficiency. Optimal levels are > or=30ng/mL. For more information on this test, go to [email or web address] 32 REFERENCE RANGES BELOW ARE APPLICABLE TO FEMALES FIRST TRIMESTER - 0.26 - 2.66 mIU/L SECOND TRIMESTER - 0.55 - 2.73 mIU/L THIRD TRIMESTER - 0.43 - 2.91 mIU/L 33 GLUCOSE REFERENCE RANGE BASED ON FASTING SPECIMEN. 34 The upper reference limit for Creatinine is approximately 13% higher for people identified as -Martiniquais. 35 GLUCOSE REFERENCE RANGE BASED ON FASTING SPECIMEN. 36 The upper reference limit for Creatinine is approximately 13% higher for people identified as -Martiniquais. 37 LDL-CHOLESTEROL RISK CATEGORY* GOAL VERY HIGH (E.G. DIABETES + CVD) <70 MG/DL HIGH (DIABETICS; CHD RISK EQUIVALENTS) <100 MG/DL MODERATELY HIGH (MULTIPLE(2+) RISK FACTORS) <130 MG/DL 0 TO 1 RISK FACTORS <160 MG/DL * NCEP REPORT. CIRCULATION 2004; 110: [phone] 38 LDL-CHOLESTEROL RISK CATEGORY* GOAL VERY HIGH (E.G. DIABETES + CVD) <70 MG/DL HIGH (DIABETICS; CHD RISK EQUIVALENTS) <100 MG/DL MODERATELY HIGH (MULTIPLE(2+) RISK FACTORS) <130 MG/DL 0 TO 1 RISK FACTORS <160 MG/DL * NCEP REPORT. CIRCULATION 2004; 110: [phone] 39 GLUCOSE REFERENCE RANGE BASED ON FASTING SPECIMEN. 40 LDL-CHOLESTEROL RISK CATEGORY* GOAL VERY HIGH (E.G. DIABETES + CVD) <70 MG/DL HIGH (DIABETICS; CHD RISK EQUIVALENTS) <100 MG/DL MODERATELY HIGH (MULTIPLE(2+) RISK FACTORS) <130 MG/DL 0 TO 1 RISK FACTORS <160 MG/DL * NCEP REPORT. CIRCULATION 2004; 110: [phone] 41 OPERATION/PROCEDURE Colonoscopy DIAGNOSIS: PART 1: "ULCER TRANSVERSE COLON BIOPSY": ISCHEMIC TYPE MUCOSAL CHANGES, WITH FOCAL ADENOMATOUS CHANGES. PART 2: "RANDOM COLON BIOPSIES": BENIGN, NONDYSPLASTIC AND NONINFLAMED COLONIC MUCOSA. KELSEY/paz 1101 INTERPRETATION COMMENT Part 1: Localized ischemia includes resolving acute colitis, vascular, mechanical, diverticular sampling and drugs (NSAID). GROSS Part 1; "BIOPSY ULCER TRANSVERSE COLON". The specimen is received in an appropriately labeled container. This contains three rounded verdin colored pieces of soft tissue measuring up to 0.3 cm.; filtered and submitted in toto within a single cassette. Part 2; "RANDOM COLON BIOPSIES". The specimen is received in an appropriately labeled container. This contains approximately eight rounded vedrin colored pieces of soft tissue measuring up to 0.2 cm.; filtered and submitted in toto within a single cassette. KELSEY/paz MICROSCOPIC Part 1: Sections reveal eroded colonic mucosa with well-oriented colonic crypts, with abbreviated maturation of lining cells to the surface. The stroma contains a fibrous condensation with depletion of superficial goblet cells consistent with ischemic injury. Focally there are tubular glands lined by columnar cells with elongated and hyperchromatic nuclei. Part 2: Sections reveal mildly edematous fragments of colonic mucosa. There is no significant inflammation. PRE OPERATIVE DIAGNOSIS Diarrhea REVIEW CODE CODE: I HOWARD Steele MD 07/25/10 42 GLUCOSE REFERENCE RANGE BASED ON FASTING SPECIMEN. 43 LDL-CHOLESTEROL RISK CATEGORY* GOAL VERY HIGH (E.G. DIABETES + CVD) <70 MG/DL HIGH (DIABETICS; CHD RISK EQUIVALENTS) <100 MG/DL MODERATELY HIGH (MULTIPLE(2+) RISK FACTORS) <130 MG/DL 0 TO 1 RISK FACTORS <160 MG/DL * NCEP REPORT. CIRCULATION 2004; 110: [phone] 44 FASTING; AN UPDATE OR CORRECTION HAS BEEN MADE TO NAME 45 LDL-CHOLESTEROL RISK CATEGORY* GOAL VERY HIGH (E.G. DIABETES + CVD) <70 MG/DL HIGH (DIABETICS; CHD RISK EQUIVALENTS) <100 MG/DL MODERATELY HIGH (MULTIPLE(2+) RISK FACTORS) <130 MG/DL 0 TO 1 RISK FACTORS <160 MG/DL * NCEP REPORT. CIRCULATION 2004; 110: [phone] 46 A NEGATIVE ANACHOICE(TM) INDICATES THE ABSENCE OF DETECTABLE ANTIBODIES TO COMPONENT ANALYTES CONSISTING OF dsDNA, CHROMATIN, [employer] RESEARCH WORKER, Sm, SSA, SSB, Lulu-1, CENTROMERE B, Scl-70, AND RIBOSOMAL P. A NEGATIVE ANACHOICE(TM) SHOULD BE INTERPRETED IN THE CONTEXT OF THE CLINICAL AND LABORATORY FINDINGS, AND DOES NOT RULE OUT AUTOIMMUNE DISEASE CHARACTERIZED BY OTHER AUTOANTIBODY SPECIALTIES INCLUDING AUTOIMMUNE HEPATITIS AND PRIMARY BILIARY CIRRHOSIS. 47 FASTING 48 LDL-CHOLESTEROL RISK CATEGORY* GOAL VERY HIGH (E.G. DIABETES + CVD) <70 MG/DL HIGH (DIABETICS; CHD RISK EQUIVALENTS) <100 MG/DL MODERATELY HIGH (MULTIPLE(2+) RISK FACTORS) <130 MG/DL 0 TO 1 RISK FACTORS <160 MG/DL * NCEP REPORT. CIRCULATION 2004; 110: [phone] 49 GLUCOSE REFERENCE RANGE BASED ON FASTING SPECIMEN. 50 TSH REFERENCE RANGE: FIRST TRIMESTER - 0.20 - 4.70 mU/L SECOND TRIMESTER - 0.30 - 4.10 mU/L THIRD TRIMESTER - 0.40 - 2.70 mU/L 51 GLUCOSE REFERENCE RANGE BASED ON FASTING SPECIMEN. 52 TSH REFERENCE RANGE: FIRST TRIMESTER - 0.20 - 4.70 mU/L SECOND TRIMESTER - 0.30 - 4.10 mU/L THIRD TRIMESTER - 0.40 - 2.70 mU/L 53 LDL-CHOLESTEROL RISK CATEGORY* GOAL VERY HIGH (E.G. DIABETES + CVD) <70 MG/DL HIGH (DIABETICS; CHD RISK EQUIVALENTS) <100 MG/DL MODERATELY HIGH (MULTIPLE(2+) RISK FACTORS) <130 MG/DL 0 TO 1 RISK FACTORS <160 MG/DL * NCEP REPORT. CIRCULATION 2004; 110: [phone] 54 OPERATION/PROCEDURE Hysteroscopy; D+C; polypectomy DIAGNOSIS: PART 1: ENDOMETRIAL POLYP : ENDOCERVICAL GLANDULAR POLYP, BENIGN. PART 2: ENDOMETRIAL CURETTINGS : FRAGMENTS OF BENIGN SQUAMOUS EPITHELIUM WITH FEATURES OF ATROPHY. JW/paz 1122 GROSS Part 1; ENDOMETRIAL POLYP . The specimen is received in an appropriately labeled container. This contains one rounded pinkish verdin colored piece of soft tissue measuring up to 0.6 cm.; filtered and submitted in toto within a single cassette. Part 2: ENDOMETRIAL CURETTINGS . The specimen is received in an appropriately labeled container. This contains <0.1 mL of pink tissue admixed with mucus. Filtered and submitted in toto within a single cassette. WS/paz MICROSCOPIC Part 1: Sections show polypoid fragments of tissue composed of endocervical glands. The stroma is collagenized and fibrous. The glands are cystically dilated, occasionally branching lined by a single layer of columnar endocervical cells. The central portion has ectatic, branching blood vessels. The surface is partially denuded. A small fragment of lower uterine segment shows no significant pathological abnormality. Part 2: Sections reveal small fragments of benign squamous epithelium with features suggestive of atrophy. There is no endometrial tissue present. PRE OPERATIVE DIAGNOSIS Post menopausal bleeding; endometrial polyp REVIEW CODE CODE: I HOWARD Steele MD 04/24/08 55 GLUCOSE REFERENCE RANGE BASED ON FASTING SPECIMEN. 56 HDL REFERENCE RANGES ADULTS (20 YEARS & OLDER) DESIRABLE: > OR=60 MG/DL HIGHER RISK: <40 MG/DL 57 LDL-CHOLESTEROL RISK CATEGORY* GOAL VERY HIGH (E.G. DIABETES + CVD) <70 MG/DL HIGH (DIABETICS; CHD RISK EQUIVALENTS) <100 MG/DL MODERATELY HIGH (MULTIPLE(2+) RISK FACTORS) <130 MG/DL 0 TO 1 RISK FACTORS <160 MG/DL * NCEP REPORT. CIRCULATION 2004; 110: [phone] 58 TSH REFERENCE RANGE: FIRST TRIMESTER - 0.20 - 4.70 mU/L SECOND TRIMESTER - 0.30 - 4.10 mU/L THIRD TRIMESTER - 0.40 - 2.70 mU/L 59 HDL REFERENCE RANGES ADULTS (20 YEARS & OLDER) DESIRABLE: > OR=60 MG/DL HIGHER RISK: <40 MG/DL 60 LDL-CHOLESTEROL RISK CATEGORY* GOAL VERY HIGH (E.G. DIABETES + CVD) <70 MG/DL HIGH (DIABETICS; CHD RISK EQUIVALENTS) <100 MG/DL MODERATELY HIGH (MULTIPLE(2+) RISK FACTORS) <130 MG/DL 0 TO 1 RISK FACTORS <160 MG/DL * NCEP REPORT. CIRCULATION 2004; 110: [phone] 61 RESULT CONFIRMED BY REPEAT ANALYSIS. THERAPEUTIC RANGE: 10.0-20.0 MG/L 62 HDL REFERENCE RANGES ADULTS (20 YEARS & OLDER) DESIRABLE: > OR=60 MG/DL HIGHER RISK: <40 MG/DL 63 LDL-CHOLESTEROL RISK CATEGORY* GOAL VERY HIGH (E.G. DIABETES + CVD) <70 MG/DL HIGH (DIABETICS; CHD RISK EQUIVALENTS) <100 MG/DL MODERATELY HIGH (MULTIPLE(2+) RISK FACTORS) <130 MG/DL 0 TO 1 RISK FACTORS <160 MG/DL * NCEP REPORT. CIRCULATION 2004; 110: [phone] 64 GLUCOSE REFERENCE RANGE BASED ON FASTING SPECIMEN. 65 THE GFR ESTIMATE IS NOT ADJUSTED FOR RACE, IF THE PATIENT RACE IS -[place], THE GFR ESTIMATE MUST BE MULTIPLIED BY A FACTOR OF 1.21. 66 PMEDS 10HRS; FASTING 67 RESULT CONFIRMED BY REPEAT ANALYSIS. 68 FASTING 69 HDL REFERENCE RANGES ADULTS (20 YEARS & OLDER) DESIRABLE: > OR=60 MG/DL HIGHER RISK: <40 MG/DL 70 LDL-CHOLESTEROL RISK CATEGORY* GOAL VERY HIGH (E.G. DIABETES + CVD) <70 MG/DL HIGH (DIABETICS; CHD RISK EQUIVALENTS) <100 MG/DL MODERATELY HIGH (MULTIPLE(2+) RISK FACTORS) <130 MG/DL 0 TO 1 RISK FACTORS <160 MG/DL * NCEP REPORT. CIRCULATION 2004; 110: [phone] 71 GLUCOSE REFERENCE RANGE BASED ON FASTING SPECIMEN. 72 THE GFR ESTIMATE IS NOT ADJUSTED FOR RACE, IF THE PATIENT'S RACE IS -[place], THE GFR ESTIMATE MUST BE MULTIPLIED BY A FACTOR OF 1.21. 73 HDL REFERENCE RANGES ADULTS (20 YEARS & OLDER) DESIRABLE: > OR=60 MG/DL HIGHER RISK: <40 MG/DL 74 LDL-CHOLESTEROL RISK CATEGORY* GOAL VERY HIGH (E.G. DIABETES + CVD) <70 MG/DL HIGH (DIABETICS; CHD RISK EQUIVALENTS) <100 MG/DL MODERATELY HIGH (MULTIPLE(2+) RISK FACTORS) <130 MG/DL 0 TO 1 RISK FACTORS <160 MG/DL * NCEP REPORT. CIRCULATION 2004; 110: 227-239 75 HDL REFERENCE RANGES ADULTS (20 YEARS & OLDER) DESIRABLE: > OR=60 MG/DL HIGHER RISK: <40 MG/DL 76 LDL-CHOLESTEROL RISK CATEGORY* GOAL VERY HIGH (E.G. DIABETES + CVD) <70 MG/DL HIGH (DIABETICS; CHD RISK EQUIVALENTS) <100 MG/DL MODERATELY HIGH (MULTIPLE(2+) RISK FACTORS) <130 MG/DL 0 TO 1 RISK FACTORS <160 MG/DL * NCEP REPORT. CIRCULATION 2004; 110: 227-239 77 HDL REFERENCE RANGES ADULTS (20 YEARS & OLDER) DESIRABLE: > OR=60 MG/DL HIGHER RISK: <40 MG/DL 78 LDL-CHOLESTEROL RISK CATEGORY* GOAL VERY HIGH (E.G. DIABETES + CVD) <70 MG/DL HIGH (DIABETICS; CHD RISK EQUIVALENTS) <100 MG/DL MODERATELY HIGH (MULTIPLE(2+) RISK FACTORS) <130 MG/DL 0 TO 1 RISK FACTORS <160 MG/DL * NCEP REPORT. CIRCULATION 2003; 110: 227-239 Procedures Date Code Description Status 07/17/2018 65886 Non-Invcorrotid/Comp /Bilat Study Completed 07/09/2018 16026 EKG-Tracing & Report Completed 07/08/2018 66839 Echocardiography Completed 06/05/2017 09544 Spirometry Graphic Record/Max Voluntary Vent Completed 06/05/2017 81413 EKG-Tracing & Report Completed 05/18/2016 74903 EKG-Tracing & Report Completed 05/15/2016 99516 Non-Invcorrotid/Comp /Bilat Study Completed 05/11/2016 16552 Echocardiography Completed 06/16/2015 68492 EKG-Tracing & Report Completed 06/15/2015 03705 Holter Monitor Office Completed 06/09/2015 21752 Non-Invcorrotid/Comp /Bilat Study Completed 06/03/2015 37947 Bone Density Completed 05/31/2015 06123 Echocardiography Completed 05/04/2014 [id number] Mammogram Completed 03/31/2014 51579 Spirometry Graphic Record/Max Voluntary Vent Completed 03/24/2014 97343 Non-Invcorrotid/Comp /Bilat Study Completed 05/22/2013 [id number] Bone Mineral Density Test Completed 05/22/2013 81848 Bone Density,Vertebral Fracture Completed 05/22/2013 63445 Bone Density Completed 07/16/2012 87487 EKG-Tracing & Report Completed 07/15/2012 29178 Non-Invcorrotid/Comp /Bilat Study Completed 07/15/2012 74361 Echocardiography Completed 07/24/2011 62699 EKG-Tracing & Report Completed 07/19/2011 72800 Non-Invcorrotid/Comp /Bilat Study Completed 07/19/2011 53313 Echocardiography Completed 07/18/2011 [id number] Colonoscopy Completed 07/23/2009 67959 PVR-Atrerial Study Completed 03/12/2009 15132 EKG-Tracing & Report Completed 03/10/2009 03414 Non-Invcorrotid/Comp /Bilat Study Completed 03/10/2009 94830 Echocardiography Completed 03/03/2008 89941 Non-Invcorrotid/Comp /Bilat Study Completed 03/03/2008 38760 Doppler Color Flow Velocity Completed 03/03/2008 82599 Doppler/ECHO Completed 03/03/2008 46931 ECHO-2D W/Wo M-Mode Completed 03/03/2008 13945 EKG-Tracing & Report Completed 03/07/2007 08153 EKG-Tracing & Report Completed 03/05/2007 27116 Doppler/ECHO Completed 03/05/2007 60385 ECHO-2D W/Wo M-Mode Completed 03/05/2007 98397 Doppler Color Flow Velocity Completed 03/05/2007 95857 Non-Invcorrotid/Comp /Bilat Study Completed 09/11/2006 51483 Non/Inv/Extremities. Dop/Venous Flow Global Fee Completed 03/07/2006 25889 EKG-Tracing & Report Completed 03/07/2006 30793 Vertebral Fracture Assessment Completed 03/07/2006 02268 Bone Density Study Completed 12/30/2004 23807 Non-Invcorrotid/Comp /Bilat Study Completed 12/30/2004 56643 Doppler Color Flow Velocity Completed 12/30/2004 10532 Doppler/ECHO Completed 12/30/2004 34604 ECHO-2D W/Wo M-Mode Completed 12/30/2004 84107 EKG-Tracing & Report Completed Encounters Type Date Location Provider Dx Diagnosis Office Visit 02/27/2019 Main Office Yen Bills M.D. R00.0 Tachycardia, 12:00p unspecified Office Visit 02/18/2019 Main Office Yen Bills M.D. E78.2 Mixed hyperlipidemia 11:15a R56.9 Unspecified convulsions Office Visit 07/15/2018 2:15p Main Office Yen Bills E78.2 Mixed hyperlipidemia M.D. R56.9 Unspecified convulsions Z23 Encounter for immunization Office Visit 06/04/2018 2:15p Main Office Yen Bills, R14.0 Abdominal distension M.D. (gaseous) Office Visit 05/20/2018 11:45a Main Office Yen Bills R14.0 Abdominal distension M.D. (gaseous) E78.5 Hyperlipidemia, unspecified R56.9 Unspecified convulsions Office Visit 02/19/2018 2:45p Main Office Yen Bills E78.5 Hyperlipidemia, M.D. unspecified R56.9 Unspecified convulsions Office Visit 07/10/2017 2:30p Main Office Yen Bills E78.5 Hyperlipidemia, M.D. unspecified R56.9 Unspecified convulsions Z23 Encounter for immunization Office Visit 05/21/2017 11:15a Main Office Yen Bills R56.9 Unspecified M.D. convulsions E78.5 Hyperlipidemia, unspecified Office Visit 02/20/2017 10:00a Main Office Yen Bills R56.9 Unspecified M.D. convulsions E78.5 Hyperlipidemia, unspecified J30.1 Allergic rhinitis due to pollen Office Visit 08/01/2016 11:00a Main Office Yen Bills R56.9 Unspecified M.D. convulsions E78.5 Hyperlipidemia, unspecified Office Visit 05/01/2016 10:45a Main Office Yen Bills M.D. H61.22 Impacted cerumen, left ear R56.9 Unspecified convulsions E78.5 Hyperlipidemia, unspecified R42 Dizziness and giddiness Office Visit 02/23/2016 2:45p Main Office Yen Bills, R56.9 Unspecified M.D. convulsions Office Visit 08/04/2015 11:45a Main Office Yen Bills E78.5 Hyperlipidemia, M.D. unspecified R56.9 Unspecified convulsions Office Visit 06/22/2015 10:45a Main Office Yen Bills, 272.4 Hyperlipidemia Other M.D. Unspec 780.39 Convulsions Other Office Visit 06/02/2015 1:45p Main Office Yen Bills M.D. 787.91 Diarrhea 564.1 Irritable Bowel Syndrome Office Visit 02/25/2015 1:30p Main Office Yen Bills 272.4 Hyperlipidemia Other M.D. Unspec 402.10 Hypertensive Heart Disease Benign W/O Heart Failure Office Visit 08/10/2014 2:00p Main Office Yen Bills, 272.4 Hyperlipidemia Other M.D. Unspec 780.39 Convulsions Other Office Visit 07/01/2014 2:15p Main Office Yen Bills, 721.00 Cervical Arthritis M.D. Office Visit 06/24/2014 2:30p Main Office Yen Bills, 721.00 Cervical Arthritis M.D. Office Visit 04/07/2014 2:15p Main Office Yen Bills, 780.40 Vertigo Dizziness M.D. 272.4 Hyperlipidemia Other Unspec Office Visit 02/24/2014 3:00p Main Office Yen Bills 402.10 Hypertensive Heart M.D. Disease Benign W/O Heart Failure 272.4 Hyperlipidemia Other Unspec 780.39 Convulsions Other Office Visit 07/16/2013 2:00p Main Office Yen Bills 402.10 Hypertensive Heart M.D. Disease Benign W/O Heart Failure 733.01 Osteoporosis Senile 272.4 Hyperlipidemia Other Unspec Office Visit 05/29/2013 10:00a Main Office Yen Bills 402.10 Hypertensive Heart M.D. Disease Benign W/O Heart Failure 780.39 Convulsions Other Office Visit 02/18/2013 10:30a Main Office Yen Gauss, 402.10 Hypertensive Heart M.D. Disease Benign W/O Heart Failure 780.39 Convulsions Other 272.4 Hyperlipidemia Other Unspec Office Visit 08/21/2012 10:45a Main Office Yen Bills, 461.9 Sinusitis Acute M.D. Unspec Office Visit 07/29/2012 2:30p Main Office Yen Bills, 402.10 Hypertensive Heart M.D. Disease Benign W/O Heart Failure 780.39 Convulsions Other 477.90 Allergies Office Visit 02/20/2012 10:15a Main Office Yen Bills, 272.4 Hyperlipidemia Other M.D. Unspec 402.10 Hypertensive Heart Disease Benign W/O Heart Failure Office Visit 08/03/2011 11:00a Main Office Yen Bills 272.4 Hyperlipidemia Other M.D. Unspec 402.10 Hypertensive Heart Disease Benign W/O Heart Failure 780.39 Convulsions Other Office Visit 02/27/2011 10:00a Main Office Yen Bills, 272.4 Hyperlipidemia Other M.D. Unspec 402.10 Hypertensive Heart Disease Benign W/O Heart Failure 780.39 Convulsions Other Office Visit 07/26/2010 2:00p Main Office Yen Bills, 272.4 Hyperlipidemia Other M.D. Unspec 780.39 Convulsions Other Office Visit 06/21/2010 2:15p Main Office Yen Bills, 272.4 Hyperlipidemia Other M.D. Unspec 402.10 Hypertensive Heart Disease Benign W/O Heart Failure 717.2 Derangement Posterior Horn Medial Meniscus V04.81 Need For Prophylactic Vaccination & Inoculation/Influenza Office Visit 03/21/2010 2:00p Main Office Yen Bills, 717.2 Derangement M.D. Posterior Horn Medial Meniscus 272.4 Hyperlipidemia Other Unspec 402.10 Hypertensive Heart Disease Benign W/O Heart Failure Office Visit 02/17/2010 10:00a Main Office Yen Bills 272.4 Hyperlipidemia Other M.D. Unspec 402.10 Hypertensive Heart Disease Benign W/O Heart Failure 726.64 Tendinitis Patellar V03.82 Streptococcus Pneumoniae Vaccination Spec Other Office Visit 07/29/2009 10:30a Main Office Yen Bills M.D. 780.39 Convulsions Other 272.4 Hyperlipidemia Other Unspec 443.89 Peripheral Vascular Disease Other Office Visit 07/15/2009 10:00a Main Office Yen Bills M.D. 780.79 Malaise And Fatigue Other 272.4 Hyperlipidemia Other Unspec 780.39 Convulsions Other 451.2 Phlebitis & Thrombophlebitis Lower Extrem Unspec Office Visit 07/01/2009 11:00a Main Office Yen Bills M.D. 780.79 Malaise And Fatigue Other 402.10 Hypertensive Heart Disease Benign W/O Heart Failure V04.81 Need For Prophylactic Vaccination & Inoculation/Influenza V03.7 Tetanus Toxoid Vaccination & Inoculation Office Visit 06/16/2009 3:00p Main Office Yen Bills 780.79 Malaise And Fatigue M.D. Other Office Visit 04/01/2009 11:30a Main Office Yen Bills 272.4 Hyperlipidemia Other M.D. Unspec 402.10 Hypertensive Heart Disease Benign W/O Heart Failure 780.39 Convulsions Other 244.90 Hypothyroidism (Aquired) Office Visit 07/14/2008 10:15a Main Office Yen Bills 272.4 Hyperlipidemia Other M.D. Unspec 402.10 Hypertensive Heart Disease Benign W/O Heart Failure 244.90 Hypothyroidism (Aquired) V04.81 Need For Prophylactic Vaccination & Inoculation/Influenza Office Visit 04/20/2008 2:45p Main Office Yen Bills M.D. 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 Unspec 433.10 Occlusion & Stenosis Carotid Artery W/O Cerebral Infarction 780.39 Convulsions Other V70.0 Examination General Medical Routine AT Health Care Facility Office Visit 09/17/2007 10:15a Main Office Yen Bills M.D. 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 466.00 Acute Bronchitis Office Visit 12/19/2006 10:00a Main Office Yen Bills M.D. 780.39 Convulsions Other 272.40 Hyperlipidemia 402.10 Hypertensive Heart Disease Benign W/O Heart Failure Office Visit 11/07/2006 2:00p Main Office Yen Bills M.D. 366.10 Cataract Senile Unspec 272.40 Hyperlipidemia Office Visit 2006 10:00a Main Office Yen Bills M.D. 272.40 Hyperlipidemia 477.90 Allergies Office Visit 03/19/2006 10:00a Main Office Yen Bills M.D. 272.40 Hyperlipidemia 780.39 Convulsions Other 402.10 Hypertensive Heart Disease Benign W/O Heart Failure 477.90 Allergies Office Visit 11/06/2005 11:15a Main Office Yen Bills 727.05 Tenosynovitis Hand & M.D. Wrist Other Office Visit 09/18/2005 2:15p Main Office Yen Bills 272.40 Hyperlipidemia M.D. Office Visit 08/14/2005 10:15a Main Office Yen Bills 272.40 Hyperlipidemia M.DDonaldo 402.10 Hypertensive Heart Disease Benign W/O Heart Failure Office Visit 02/07/2005 11:15a Main Office Yen Bills M.D. 272.40 Hyperlipidemia 477.90 Allergies Office Visit 07/05/2004 11:15a Main Office Yen Bills M.D. 272.40 Hyperlipidemia 780.39 Convulsions Other Office Visit 06/24/2004 12:00p Main Office Aime Adkins MD 727.05 Tenosynovitis Hand & Wrist Other Office Visit 03/28/2004 10:45a Main Office Yen Bills, 682.6 Cellulitis & Abscess M.D. Leg Except Foot Plan of Treatment Future Appointment(s):05/12/2019 8:00 am - Nurse at Main Bjvlnx8505/19/2019 2: 00 pm - Yen Bills M.D. at Main Wgzbjk9004/15/2019 - Yen Bills M.D.R00.0 Tachycardia, ysuypfolkixN71.240 ClaustrophobiaNew Medication:Diazepam 10 mg - 1 by mouth 45 minutes before testingComments:premedication before testing
--- OUTSIDE RECORDS SUMMARY | 2019-04-26 09:31 | XMS REPORT | Continuity of Care Document ---
:1940 External Reference #:[id number] Author Name Jessie Wood Care Team Providers Name Role Phone Yen Bills MD Care Team Information Drier Helper Unavailable Yen Bills MD Primary Care Physician Unavailable Payers Date Identification Numbers Payment Provider Subscriber Effective: Policy Number: [id number] Medicare Joceline De Luna 2003 PayID: [id number] [address] [place] [address] Policy Number: [id number] [facility] Joceline De Luna Group Number: [id number] [address] [address] PayID: [id number] [place] [address] Problems Active Problems Provider Date Hyperlipidemia Yen Bills M.D. 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 Onset: 02/27/2011 congestive heart failure Seizure eYn Bills M.D. Onset: 02/27/2011 Vertigo Dizziness Yen [...] Yen Bills, 02/18/2013 - ordered M.D. 03/25/2014 38503Anl/0.65ML Solution Rec Azithromycin Take 2 Tablets 6tabs [...] to each 6units Yen Bills, 2006 - 50mcg/[place] nare qd M.D. 02/27/2011 Suspension Zyrtec D one po bid 180tabs Yen Bills, 04/06/2006 - 5mg Tablets M.D. 03/19/2008 Prozac 1 po bid 180caps Yen Bills, 03/13/2006 - 20mg Capsules M.D. 09/17/2007 Zyrtec 1 po qd bid 200tabs Yen Bills, 02/23/2006 - 5mg Tablets M.D. 04/06/2006 Flonase 1 spray to each 3units Yen Bills, 09/18/2005 - 50mcg/[place] nare qd prn M.D. 10/13/2006 Suspension Prozac 2 po qd 30caps Yen Bills, 09/14/2005 - 20mg Capsules M.D. 03/13/2006 Phenobarbital 1 qd Yen Bills, 08/14/2005 - 60mg M.D. 09/18/2005 Tablets Prozac 2 tabs po qd Yen Bills, 08/14/2005 - 20mg Capsules M.D. 09/14/2005 Flonase 1 spray to each Yen Bills, 08/14/2005 - 50mcg/[place] nare qd M.D. 09/18/2005 Suspension Zyrtec 1 [...] Influenza Virus (Afluria) Split Virus 3 Years [id number] Of Age And Older Q2037 Given 06/26/2016 Influenza Vaccine (Fluvirin) 1 Years Of Age Or [id number] Older Q2036 Given 07/23/2013 Flulaval Q2036 Given 07/23/2013 Flulaval [id number] Q2037 Given 07/16/2012 Influenza Vaccine (Fluvirin) 1 Years Of Age Or Older Q2037 Given 07/16/2012 Influenza Vaccine (Fluvirin) 1 Years Of Age Or [id number] Older Q2036 Given 07/12/2011 Flulaval 31968 Given 06/21/2010 Influenza Vaccine [id number] 26357 Given 02/17/2010 Pneumovax Polyvalent Inj Im [id number] 25095 Given 07/01/2009 Tetanus,Diphtheria,Adut/Adol Pertussis 5433 34968 Given 07/01/2009 Influenza Vaccine [id number] 10360 Given 07/14/2008 Influenza Vaccine [id number] 80806 Given 08/02/2007 Influenza Vaccine [id number] 33278 Given 09/27/2006 Influenza Vaccine [id number] 48337 Given 09/14/2005 Influenza Vaccine [id number] 35079 Given 09/14/2000 Pneumovax Polyvalent Inj Im Vital [...] Phenobarbital,Demetrio 11 g/mL 1, [address] e,Serum/[place] [address] [phone] Xray 05/20/2018 [facility] Abdominal <pending> [place] [address] Sonogram [phone] Lipid Panel 05/06/2018 [facility] Cholesterol 185 mg/dL <[address] [place] [address] [phone] HDL Cholesterol 50 mg/dL Low >50 Cholesterol/HDL Ratio 3.7 CALC <5.0 LDL Chol,Calculated 103 mg/dL High 0-100 3 Triglycerides 200 mg/dL High <150 Non-HDL Cholesterol 134 mg/dL High <130 4 Hepatic Function 05/06/2018 [facility] Alkaline Phosphatase 75 U/L 33- [address] [place], [place] [id number] [phone] Ast 20 U/L 10-35 Alt 21 U/L 6-29 Bilirubin,Total 0.3 mg/dL 0.2-1.2 Bilirubin,Direct 0.1 mg/dL < Or=0.2 Protein,Total 7.0 g/dL 6.1-8.1 Albumin 4.6 g/dL 3.6-5.1 Globulin,Calculated 2.4 g/dL 1.9-3.7 A/G Ratio 1.9 1.0-2.5 CBC W/ Diff & PLT 05/06/2018 [facility] WBC 7.2 thous/L 3.8-10.8 [address] [place] [address] [phone] RBC 4.48 mill/L 3.80-5.10 Hemoglobin 13.9 g/dL 11.7-15.5 Hematocrit 41.5 % 35.0-45.0 MCV 92.7 FL 80.0-100.0 MCH 30.9 pg 27.0-33.0 MCHC 33.4 g/dL 32.0-36.0 RDW 13.3 % 11.0-15.0 Platelet Count 288 thous/L 140-400 Platelet Sufficiency NORMAL Normal MPV 8.3 FL 7.5-12.5 Neutrophils,Absolute 3830 cells/L 3229-4113 Bands,Absolute PENDING Metamyelocytes,Absolute PENDING Myelocytes,Absolute PENDING Promyelocytes,Absolute [...] [facility] Sodium 140 mmol/L 135-146 [address] [place] [address] [phone] Potassium 4.3 mmol/L 3.5-5.3 Chloride 106 mmol/L 98-110 Carbon Dioxide 26 mmol/L 20-31 Glucose 97 mg/dL 65-99 6 Urea Nitrogen (BUN) 11 mg/dL 7-25 Creatinine 0.80 mg/dL 0.60-0.93 7 BUN/Creatinine Ratio 13.5 6-22 CBC W/ Diff & PLT 05/08/2017 [facility] WBC 6.7 thous/L 3.8-10.8 [address] [place] [address] [phone] RBC 4.43 mill/L 3.80-5.10 Hemoglobin 13.4 g/dL 11.7-15.5 Hematocrit 40.5 % 35.0-45.0 MCV 91.5 FL 80.0-100.0 MCH 30.2 pg 27.0-33.0 MCHC 33.0 g/dL 32.0-36.0 RDW 13.2 % 11.0-15.0 Platelet Count 282 thous/L 140-400 Platelet Sufficiency PENDING MPV 8.5 FL 7.5-12.5 Neutrophils,Absolute 3600 cells/L 5300-6969 Bands,Absolute PENDING Metamyelocytes,Absolute PENDING Myelocytes,Absolute PENDING Promyelocytes,Absolute [...] [facility] Sodium 140 mmol/L 135-146 [address] [place] [address] [phone] Potassium 4.4 mmol/L 3.5-5.3 Chloride 105 mmol/L 98-110 Carbon Dioxide 27 mmol/L 20-31 Glucose 108 mg/dL High 65-99 9 Urea Nitrogen 13 mg/dL 7-25 Creatinine 0.83 mg/dL 0.60-0.93 10 BUN/Creatinine Ratio 16.1 6-22 Lipid Panel 05/08/2017 [facility] Cholesterol 178 mg/dL 125-[address] [place] [address] [phone] HDL Cholesterol 39 mg/dL Low > Or=46 Cholesterol/HDL Ratio 4.6 < Or=5.0 LDL Chol,Calculated 92 mg/dL <130 11 Triglycerides 234 mg/dL High <150 Non-HDL Cholesterol 138 mg/dL 12 Laboratory test 05/08/2017 [facility] Phenobarbital 13.9 mg/L Low 15.0- 40.[address] [place] [address] [phone] BMP W/O Egfr 05/18/2016 [facility] Sodium 140 135-[address] [place] mmol/[place] [address] [phone] Potassium 4.4 mmol/L 3.5-5.3 Chloride 106 mmol/L 98-110 Carbon Dioxide 26 mmol/L 20-31 Calcium 9.8 mg/dL 8.6-10.4 Glucose 95 mg/dL 65-99 13 Urea Nitrogen 16 mg/dL 7-25 Creatinine 0.87 mg/dL 0.60-0.93 14 BUN/Creatinine Ratio 18.9 6-22 Lipid Panel 05/18/2016 [facility] Cholesterol 172 mg/dL 125-[address] [place] [id number] [phone] HDL Cholesterol 46 mg/dL > Or=46 Cholesterol/HDL Ratio 3.7 < Or=5.0 LDL Chol,Calculated 95 mg/dL <130 15 Triglycerides 155 mg/dL High <150 Non-HDL Cholesterol 127 mg/dL 16 Laboratory test 05/18/2016 [facility] Hemoglobin A1c 5.5 % 0.0-5.6 [address] [place] [address] [phone] TSH & T4,Free 05/18/2016 [facility] TSH 3.41 0.40-4.[address] [place] mIU/[place] [address] [phone] T4,Free 1.0 ng/dL 0.8-1.8 CBC W/ Diff & PLT 05/18/2016 [facility] WBC 7.3 thous/L 3.8-10.8 [address] [place] [address] [phone] RBC 4.49 mill/L 3.80-5.10 Hemoglobin 13.8 g/dL 11.7-15.5 Hematocrit 42.2 % 35.0-45.0 MCV 94.0 FL 80.0-100.0 MCH 30.7 pg 27.0-33.0 MCHC 32.6 g/dL 32.0-36.0 RDW 13.9 % 11.0-15.0 Platelet Count 287 thous/L 140-400 Platelet Sufficiency PENDING MPV 8.0 FL 7.5-11.5 Neutrophils,Absolute 3760 cells/L 6279-3708 Bands,Absolute PENDING Metamyelocytes,Absolute PENDING Myelocytes,Absolute PENDING Promyelocytes,Absolute [...] [facility] Sodium 141 mmol/L 135-146 [address] [place] [address] [phone] Potassium 4.4 mmol/L 3.5-5.3 Chloride 105 mmol/L 98-110 Carbon Dioxide 25 mmol/L 19-30 Calcium 9.9 mg/dL 8.6-10.4 Glucose 91 mg/dL 65-99 20 Urea Nitrogen 16 mg/dL 7-25 Creatinine 0.81 mg/dL 0.60-0.93 21 BUN/Creatinine Ratio 19.6 6-22 Lipid Panel 06/15/2015 [facility] Cholesterol 171 mg/dL 125-200 6 [place] [address] [phone] HDL Cholesterol 42 mg/dL Low > Or=46 Cholesterol/HDL Ratio 4.1 < Or=5.0 LDL Chol,Calculated 80 mg/dL <130 22 Triglycerides 244 mg/dL High <150 Non-HDL Cholesterol 129 mg/dL 23 CBC W/ Diff & PLT 06/15/2015 [facility] WBC 7.4 thous/L 3.8-10.8 [address] [place] [address] [phone] RBC 4.52 mill/L 3.80-5.10 Hemoglobin 13.6 g/dL 11.7-15.5 Hematocrit 42.2 % 35.0-45.0 MCV 93.3 FL 80.0-100.0 MCH 30.1 pg 27.0-33.0 MCHC 32.2 g/dL 32.0-36.0 RDW 13.8 % 11.0-15.0 Platelet Count 297 thous/L 140-400 Platelet Sufficiency PENDING MPV 8.2 FL 7.5-11.5 Neutrophils,Absolute 3940 cells/L 3782-6851 Bands,Absolute PENDING Metamyelocytes,Absolute PENDING Myelocytes,Absolute PENDING Promyelocytes,Absolute [...] Lab Phenobarbital 12.6 Low 15.0-40.[address] mg/[place] [address] [phone] Laboratory test 02/16/2015 [facility] Glucose,Plasma 102 High 65-99 [address] mg/[place] [address] [phone] Hemoglobin A1c 5.5 % 0.0-5.6 26 TSH & T4,Free 03/30/2014 [facility] TSH 2.21 mIU/L 0.40-4.[address] [place], [place] [address] [phone] T4,Free 1.0 ng/dL 0.8-1.8 Lipid Panel 03/30/2014 [facility] Cholesterol 196 mg/dL 125-[address] [place] [address] [phone] HDL Cholesterol 51 mg/dL > Or=46 Cholesterol/HDL Ratio 3.8 < Or=5.0 LDL Chol,Calculated 114 mg/dL <130 28 Triglycerides 154 mg/dL High <150 Non-HDL Cholesterol 146 mg/dL 29 CBC W/ Diff & PLT 03/30/2014 [facility] WBC 7.1 thous/L 3.8-10.[address] [place], [place] [id number] [phone] RBC 4.45 mill/L 3.80-5.10 Hemoglobin 13.9 g/dL 11.7-15.5 Hematocrit 41.5 % 35.0-45.0 MCV 93.1 FL 80.0-100.0 MCH 31.2 pg 27.0-33.0 MCHC 33.5 g/dL 32.0-36.0 RDW 13.4 % 11.0-15.0 Platelet Count 309 thous/L 140-400 Platelet Sufficiency PENDING Neutrophils,Absolute 4000 cells/L 3595-9056 Bands,Absolute PENDING Metamyelocytes,Absolute PENDING Myelocytes,Absolute PENDING Promyelocytes,Absolute [...] LDL 91 mg/dL <130 [address] [place], [place] [address] [phone] Vitamin D, 25 05/22/2013 [facility] Vitamin 39 ng/mL 30-[address] D,25-Oh,Total [place], [place] [id number] [phone] Vitamin D,25-Oh,D3 39 ng/mL Vitamin D,25-Oh,D2 <4 ng/mL 31 TSH & T4,Free 05/22/2013 [facility] TSH 2.58 mIU/L 0.40-4.[address] [place], [place] [address] [phone] T4,Free 0.9 ng/dL 0.8-1.8 BMP W/O Egfr 05/22/2013 [facility] Sodium 141 mmol/L 135-[address] [place], [place] [address] [phone] Potassium 4.6 mmol/L 3.5-5.3 Chloride 106 mmol/L 98-110 Carbon Dioxide 25 mmol/L 19-30 Calcium 9.2 mg/dL 8.6-10.4 Glucose 99 mg/dL 65-99 33 Urea Nitrogen 11 mg/dL 7-25 Creatinine 0.80 mg/dL 0.60-0.93 34 BUN/Creatinine Ratio 13.4 6-22 CBC W/ Diff & PLT 05/22/2013 [facility] WBC 6.4 thous/L 3.8-10.[address] [place] [address] [phone] RBC 4.43 mill/L 3.80-5.10 Hemoglobin 13.8 g/dL 11.7-15.5 Hematocrit 41.5 % 35.0-45.0 MCV 93.7 FL 80.0-100.0 MCH 31.0 pg 27.0-33.0 MCHC 33.1 g/dL 32.0-36.0 RDW 13.2 % 11.0-15.0 Platelet Count 272 thous/L 140-400 Neutrophils,Absolute 3320 cells/L 5624-9214 Lymphocytes,Absolute 2080 cells/L 850-3900 Monocytes,Absolute 720 cells/L 200-950 Eosinophils,Absolute 200 cells/L 15-500 Basophils,Absolute 60 cells/L 0-200 Total Neutrophils,% 52 % 38-80 Total Lymphocytes,% 33 % 15-49 Monocytes,% 11 % 0-13 Eosinophils,% 3 % 0-8 Basophils,% 1 % 0-2 Comp Metabolic Panel 07/16/2012 [facility] Sodium 142 mmol/L 135-[address] [place] [address] [phone] Potassium 4.4 mmol/L 3.5-5.3 Chloride 105 mmol/L [...] 2.2-3.9 A/G Ratio 1.8 1.0-2.1 Egfr Non-Afr. Ben[place] 72 ML/MIN/1.73M2 > Or=60 Egfr 84 ML/MIN/1.73M2 > Or=60 Hepatic Function 07/16/2012 [facility] Alkaline Phosphatase 91 U/L 33- [address] [place] [address] [phone] Ast 20 U/L 10-35 Alt 22 U/L 6-40 Bilirubin,Total 0.3 mg/dL 0.2-1.2 Bilirubin,Direct 0.0 mg/dL < Or=0.2 Protein,Total 6.9 g/dL 6.2-8.3 Albumin 4.4 g/dL 3.6-5.1 Globulin,Calculated 2.5 g/dL 2.2-3.9 A/G Ratio 1.8 1.0-2.1 Laboratory 07/16/2012 [facility] LDL Cholesterol,Direct 116 <130 37 test finding [address] mg/[place] [address] [phone] CBC W/ Diff & 07/16/2012 [facility] WBC 8.2 3.8-10. PLT [address] [place] [address] L [phone] RBC 4.38 mill/L 3.80-5.10 Hemoglobin 14.0 g/dL 11.7-15.5 Hematocrit 41.7 % 35.0-45.0 MCV 95.2 FL 80.0-100.0 MCH 32.0 pg 27.0-33.0 MCHC 33.6 g/dL 32.0-36.0 RDW 13.3 % 11.0-15.0 Platelet Count 347 thous/L 140-400 Platelet Sufficiency NORMAL Normal Neutrophils,Absolute 4500 cells/L 3456-0983 Lymphocytes,Absolute 2250 cells/L 850-3900 Monocytes,Absolute 900 cells/L 200-950 Eosinophils,Absolute 470 cells/L 15-500 Basophils,Absolute 70 cells/L 0-200 Total Neutrophils,% 55 % 38-80 Total Lymphocytes,% 27 % 15-49 Monocytes,% 11 % 0-13 Eosinophils,% 6 % 0-8 Basophils,% 1 % 0-2 RBC Morphology NORMAL Laboratory 07/16/2012 [facility] Phenobarbital 10.3 Low 15.0-40.0 test finding [address] mg/[place] [address] [phone] Laboratory 07/24/2011 [facility] LDL 108 <130 38 test finding [address] Cholesterol,Direc mg/[place] [address] t [phone] Basic 07/24/2011 [facility] Sodium 140 135-[address] mmol/[place] [address] [phone] Potassium 4.6 mmol/L 3.5-5.3 Chloride 105 mmol/L 98-110 Carbon Dioxide 26 mmol/L 21-33 Calcium 9.9 mg/dL 8.6-10.2 Glucose 91 mg/dL 65-99 39 Urea Nitrogen 17 mg/dL 7-25 Creatinine 0.86 mg/dL 0.63-1.22 BUN/Creatinine Ratio 20.1 6-22 Egfr Non-Afr. Ben[place] 67 ML/MIN/1.73M2 > Or=60 Egfr 78 ML/MIN/1.73M2 > Or=60 CBC W/ Diff & PLT 07/24/2011 [facility] WBC 6.8 thous/L 3.8-10.[address] [place] [address] [phone] RBC 4.35 mill/L 3.80-5.10 Hemoglobin 13.6 g/dL 11.7-15.5 Hematocrit 41.3 % 35.0-45.0 MCV 94.8 FL 80.0-100.0 MCH 31.3 pg 27.0-33.0 MCHC 33.0 g/dL 32.0-36.0 RDW 13.0 % 11.0-15.0 Platelet Count 285 thous/L 140-400 Neutrophils,Absolute 3390 cells/L 1310-8083 Lymphocytes,Absolute 2270 cells/L 850-3900 Monocytes,Absolute 770 cells/L 200-950 Eosinophils,Absolute 330 cells/L 15-500 Basophils,Absolute 50 cells/L 0-200 Total Neutrophils,% 50 % 38-80 Total Lymphocytes,% 33 % 15-49 Monocytes,% 11 % 0-13 Eosinophils,% 5 % 0-8 Basophils,% 1 % 0-2 Laboratory test 02/20/2011 [facility] LDL Cholesterol,Direct 109 mg/dL < 130 [address] [place] [address] [phone] HDL Cholesterol 47 mg/dL > Or=46 Cholesterol 182 mg/dL 125-200 Triglycerides 181 mg/dL High <150 Laboratory test 07/22/2010 [facility] Polyp Colon See Note [address] [place] [address] [phone] CBC W/ Diff & PLT 07/19/2010 [facility] WBC 7.6 3.8-10. [address] thous/L 8 [place] [address] [phone] RBC 4.20 mill/L 3.80-5.10 Hemoglobin 13.5 g/dL 11.7-15.5 Hematocrit 39.0 % 35.0-45.0 MCV 92.9 FL 80.0-100.0 MCH 32.1 pg 27.0-33.0 MCHC 34.5 g/dL 32.0-36.0 RDW 12.6 % 11.0-15.0 Platelet Count 370 thous/L 140-400 Platelet Sufficiency NORMAL Normal Neutrophils,Absolute 4280 cells/L 5042-7598 Bands,Absolute DNR cells/L 0-750 Metamyelocytes,Absolute DNR cells/L [...] [facility] Sodium 140 mmol/L 135-[address] [place] [address] [phone] Potassium 4.7 mmol/L 3.5-5.3 Chloride 104 mmol/L 98-110 Carbon Dioxide 27 mmol/L 21-33 Calcium 9.7 mg/dL 8.6-10.2 Glucose 88 mg/dL 65-99 42 Urea Nitrogen 13 mg/dL 7-25 Creatinine 0.75 mg/dL 0.63-1.22 BUN/Creatinine Ratio 16.8 6-22 Egfr Non-Afr. [place] >60 ML/MIN/1.73M2 > Or=60 Egfr >60 ML/MIN/1.73M2 > Or=60 Lipid Panel 07/19/2010 [facility] Cholesterol 168 mg/dL 125-[address] [place] [address] [phone] HDL Cholesterol 44 mg/dL Low > Or=46 Triglycerides 211 mg/dL High <150 Cholesterol/HDL Ratio 3.8 < Or=5.0 LDL Chol,Calculated 82 mg/dL <130 43 Hepatic Function 07/19/2010 [facility] Alkaline Phosphatase 72 U/L 33- [address] [place] [address] [phone] Ast 18 U/L 10-35 Alt 17 U/L 6-40 Bilirubin,Total 0.3 mg/dL 0.2-1.2 Bilirubin,Direct 0.1 mg/dL < Or=0.2 Protein,Total 6.8 g/dL 6.2-8.3 Albumin 4.4 g/dL 3.6-5.1 Globulin,Calculated 2.4 g/dL 2.2-3.9 A/G Ratio 1.9 1.0-2.1 Laboratory 07/19/2010 [facility] Phenobarbital 12.7 Low 15.0-40.0 test finding [address] mg/[place] [address] [phone] Laboratory 03/15/2010 [facility] Phenobarbital 10.9 Low 15.0-40.0 44 test finding [address] mg/[place] [address] [phone] Hepatic 03/15/2010 [facility] Alkaline 61 U/L 33-130 Function Panel [address] [address] [phone] Ast 22 U/L 10-35 Alt 23 U/L 6-40 Bilirubin,Total 0.3 mg/dL 0.2-1.2 Bilirubin,Direct 0.1 mg/dL < Or=0.2 Protein,Total 6.8 g/dL 6.2-8.3 Albumin 4.5 g/dL 3.6-5.1 Globulin,Calculated 2.3 g/dL 2.2-3.9 A/G Ratio 1.9 1.0-2.1 Lipid Panel 03/15/2010 [facility] Cholesterol 184 mg/dL 125-[address] [place] [address] [phone] HDL Cholesterol 46 mg/dL > Or=46 Cholesterol/HDL Ratio 4.0 < Or=5.0 LDL Chol,Calculated 97 mg/dL <130 45 Triglycerides 205 mg/dL High <150 Laboratory test 07/06/2009 [facility] Iron,Total 115 g/dL 40-[address] [place] [address] [phone] Arthritis Profile 07/06/2009 [facility] Uric Acid 5.6 mg/dL 2.5-7.[address] [place] [address] [phone] Rheumatoid Factor 6 IU/mL <14 Aso AB 122 IU/mL <201 Anachoice (TM) Screen NEGATIVE Negative 46 Laboratory 07/06/2009 [facility] Heterophile,Canadian NEGATIVE Negative test finding [address] [place] [address] [phone] Hepatic 07/06/2009 [facility] Alkaline 71 U/L 33-130 Function Panel [address] [address] [phone] Ast 19 U/L 10-35 Alt 19 U/L 6-40 Bilirubin,Total 0.3 mg/dL 0.2-1.2 Bilirubin,Direct 0.0 mg/dL < Or=0.2 Protein,Total 6.9 g/dL 6.2-8.3 Albumin 4.4 g/dL 3.6-5.1 Globulin,Calculated 2.5 g/dL 2.2-3.9 A/G Ratio 1.8 1.0-2.1 Lipid Panel 06/17/2009 [facility] Cholesterol 184 mg/dL 125-[address] [place] [address] [phone] HDL Cholesterol 51 mg/dL > Or=46 Triglycerides 193 mg/dL High <150 Cholesterol/HDL Ratio 3.6 < Or=5.0 LDL Chol,Calculated 94 mg/dL <130 48 Basic Metabolic Panel 06/17/2009 [facility] Sodium 140 mmol/L 135-146 [address] [place] [address] [phone] Potassium 4.4 mmol/L 3.5-5.3 Chloride 104 mmol/L 98-110 Carbon Dioxide 27 mmol/L 21-33 Calcium 9.3 mg/dL 8.6-10.2 Glucose 89 mg/dL 65-99 49 Urea Nitrogen 9 mg/dL 7-25 Creatinine 0.80 mg/dL 0.63-1.22 BUN/Creatinine Ratio 10.9 6-22 Egfr Non-Afr. [place] >60 ML/MIN/1.73M2 > Or=60 Egfr >60 ML/MIN/1.73M2 > Or=60 CBC W/ Diff & PLT 06/17/2009 [facility] WBC 6.3 thous/L 3.8-10.8 [address] [place] [address] [phone] RBC 4.51 mill/L 3.80-5.10 Hemoglobin 14.1 g/dL 11.7-15.5 Hematocrit 41.8 % 35.0-45.0 MCV 92.7 FL 80.0-100.0 MCH 31.4 pg 27.0-33.0 MCHC 33.8 g/dL 32.0-36.0 RDW 13.4 % 11.0-15.0 Platelet Count 312 thous/L 140-400 Platelet Sufficiency NORMAL Normal Neutrophils,Absolute 3090 cells/L 8194-3727 Bands,Absolute DNR cells/L 0-750 Metamyelocytes,Absolute DNR cells/L [...] TSH,3RD 2.58 mU/L 0.40-4.50 [address] [place] [address] [phone] T4,Free 1.0 ng/dL 0.8-1.8 CBC W/ Diff & PLT 03/12/2009 [facility] WBC 7.8 thous/L 3.8-10.[address] [place] [address] [phone] RBC 4.20 mill/L 3.80-5.10 Hemoglobin 13.3 g/dL 11.7-15.5 Hematocrit 38.7 % 35.0-45.0 MCV 92.1 FL 80.0-100.0 MCH 31.8 pg 27.0-33.0 MCHC 34.5 g/dL 32.0-36.0 RDW 12.6 % 11.0-15.0 Platelet Count 401 thous/L High 140-400 Platelet Sufficiency NORMAL Normal Neutrophils,Absolute 4380 cells/L [phone] Bands,Absolute DNR cells/L 0-750 Metamyelocytes,Absolute DNR cells/L [...] [facility] Sodium 140 mmol/L 135-[address] [place] [address] [phone] Potassium 4.4 mmol/L 3.5-5.3 Chloride 104 mmol/L 98-110 Carbon Dioxide 28 mmol/L 21-33 Calcium 9.4 mg/dL 8.6-10.2 Glucose 95 mg/dL 65-99 51 Urea Nitrogen 11 mg/dL 7-25 Creatinine 0.86 mg/dL 0.63-1.22 BUN/Creatinine Ratio 13.3 6-22 Egfr Non-Afr. [place] >60 ML/MIN/1.73M2 > Or=60 Egfr >60 ML/MIN/1.73M2 > Or=60 Hepatic Function 03/12/2009 [facility] Alkaline Phosphatase 84 U/L 33- [address] [place] [address] [phone] Ast 21 U/L 10-35 Alt 17 U/L 6-40 Bilirubin,Total 0.2 mg/dL 0.2-1.2 Bilirubin,Direct 0.1 mg/dL < Or=0.2 Protein,Total 6.8 g/dL 6.2-8.3 Albumin 4.4 g/dL 3.6-5.1 Globulin,Calculated 2.4 g/dL 2.2-3.9 A/G Ratio 1.8 1.0-2.1 Laboratory test 03/12/2009 [facility] TSH,3RD 2.71 mU/L 0.40-4.50 [address] [place] [address] [phone] Lipid Panel 06/30/2008 [facility] Cholesterol 185 mg/dL 125-[address] [place] [address] [phone] HDL Cholesterol 54 mg/dL > Or=46 Cholesterol/HDL Ratio 3.4 < Or=5.0 LDL Chol,Calculated 102 mg/dL <130 53 Triglycerides 145 mg/dL <150 Laboratory test 04/23/2008 [facility] Pathology Exam (SEE NOTE) 54 finding [address] [place] [address] [phone] Culture,Urine,Void 03/19/2008 [facility] Source URINE-CC ed [address] [place] [address] [phone] Preliminary Report DNR Interim Report DNR Organism #1 DNR Organism #2 DNR Organism #3 DNR Organism #4 DNR 4399 DNR CBC W/ Diff & PLT 03/03/2008 [facility] WBC 7.2 thous/L 3.8-10.8 [address] [place] [address] [phone] RBC 4.39 mill/L 3.80-5.10 Hemoglobin 13.7 g/dL 11.7-15.5 Hematocrit 39.9 % 35.0-45.0 MCV 90.7 FL 80.0-100.0 MCH 31.1 pg 27.0-33.0 MCHC 34.3 g/dL 32.0-36.0 RDW 13.5 % 11.0-15.0 Platelet Count 332 thous/L 140-400 Platelet Sufficiency NORMAL Normal Neutrophils,Absolute 3350 cells/L [phone] Bands,Absolute DNR cells/L 0-750 Metamyelocytes,Absolute DNR cells/L [...] [facility] Sodium 141 mmol/L 135-[address] [place], [place] [id number] [phone] Potassium 4.6 mmol/L 3.5-5.3 Chloride 104 mmol/L 98-110 Carbon Dioxide 30 mmol/L 21-33 Calcium 9.6 mg/dL 8.6-10.2 Glucose 93 mg/dL 65-99 55 Urea Nitrogen 14 mg/dL 7-25 Creatinine 0.81 mg/dL 0.50-1.20 BUN/Creatinine Ratio 17.8 6-22 Egfr Non-Afr. [place] >60 ML/MIN/1.7 > Or=60 Egfr >60 ML/MIN/1.7 > Or=60 Lipid Panel 03/03/2008 [facility] Cholesterol 176 mg/dL 125-[address] [place], [place] [id number] [phone] HDL Cholesterol 48 mg/dL > Or=40 56 Cholesterol/HDL Ratio 3.7 < Or=5.0 LDL Chol,Calculated 104 mg/dL <130 57 Triglycerides 120 mg/dL <150 Laboratory test 03/03/2008 [facility] TSH,3RD 2.90 mU/L 0.40-4.50 [address] [place], [place] [id number] [phone] T4,Free 1.2 ng/dL 0.8-1.8 Lipid Panel 09/04/2007 [facility] Cholesterol 213 mg/dL High 125-[address] [place], [place] [id number] [phone] HDL Cholesterol 47 mg/dL > Or=40 59 Cholesterol/HDL Ratio 4.5 < Or=5.0 LDL Chol,Calculated 122 mg/dL <130 60 Triglycerides 218 mg/dL High <150 CBC W/ Diff & PLT 03/07/2007 [facility] WBC 6.9 thous/L 3.8-10.[address] [place] [address] [phone] RBC 4.42 mill/L 3.80-5.10 Hemoglobin 13.9 g/dL 11.7-15.5 Hematocrit 40.1 % 35.0-45.0 MCV 90.6 FL 80.0-100.0 MCH 31.4 pg 27.0-33.0 MCHC 34.6 g/dL 32.0-36.0 RDW 13.3 % 11.0-15.0 Platelet Count 313 thous/L 140-400 Platelet Sufficiency NORMAL Normal Neutrophils,Absolute 3870 cells/L [phone] Bands,Absolute DNR cells/L 0-750 Metamyelocytes,Absolute DNR cells/L [...] Lab Phenobarbital 11.8 Low 15.0-40.[address] mg/[place] [address] [phone] Phenytoin (Dilantin) <2.5 mg/L Low 10.0-20.0 61 Hepatic Function 03/07/2007 [facility] Alkaline Phosphatase 72 U/L 33- [address] [place] [address] [phone] Ast 22 U/L 10-35 Alt 16 U/L 6-40 Bilirubin,Total 0.4 mg/dL 0.2-1.2 Bilirubin,Direct 0.1 mg/dL < Or=0.2 Protein,Total 6.9 g/dL 6.2-8.3 Albumin 4.3 g/dL 3.6-5.1 Lipid Panel 03/07/2007 [facility] Cholesterol 173 mg/dL 125-[address] [place] [address] [phone] HDL Cholesterol 48 mg/dL > Or=40 62 Cholesterol/HDL Ratio 3.6 < Or=5.0 LDL Chol,Calculated 101 mg/dL <130 63 Triglycerides 120 mg/dL <150 Basic Metabolic Panel 03/07/2007 [facility] Sodium 141 mmol/L 135-[address] [place] [address] [phone] Potassium 4.3 mmol/L 3.5-5.3 Chloride 106 mmol/L 98-110 Carbon Dioxide 28 mmol/L 21-33 Calcium 9.3 mg/dL 8.6-10.2 Glucose 93 mg/dL 65-99 64 Urea Nitrogen 12 mg/dL 7-25 Creatinine 0.9 mg/dL 0.5-1.2 BUN/Creatinine Ratio 13.5 6-22 GFR Estimated >60 ML/MIN/1.7 >59 65 Laboratory 12/12/2006 [facility] Phenobarbital <5.0 Low 15.0-40.0 66, 67 test finding [address] mg/[place] [address] [phone] Hemoglobin A1c 5.8 % <6.0 Lipid Panel 09/12/2006 [facility] Cholesterol 218 mg/dL High <[address] [place] [address] [phone] HDL Cholesterol 58 mg/dL >40 69 Cholesterol/HDL Ratio 3.8 <4.4 LDL Chol,Calculated 120 mg/dL <130 70 Triglycerides 201 mg/dL High <150 Laboratory test finding 03/07/2006 [facility] TSH 1.99 mU/L 0.40-5.[address] [place] [address] [phone] CBC W/ Diff & PLT 03/07/2006 [facility] WBC 6.3 thous/L 3.8-10.8 [address] [place] [address] [phone] RBC 4.52 mill/L 3.80-5.10 Hemoglobin 13.7 g/dL 11.7-15.5 Hematocrit 40.8 % 35.0-45.0 MCV 90.0 FL 80.0-100.0 MCH 30.3 pg 27.0-33.0 MCHC 33.6 g/dL 32.0-36.0 RDW 13.3 % 11.0-15.0 Platelet Count 342 thous/L 140-400 Platelet Sufficiency NORMAL Neutrophils,Absolute 3310 cells/L [phone] Bands,Absolute DNR cells/L 0-750 Metamyelocytes,Absolute DNR cells/L [...] [facility] Sodium 142 mmol/L 135-146 [address] [place] [address] [phone] Potassium 4.5 mmol/L 3.5-5.3 Chloride 106 mmol/L 98-110 Carbon Dioxide 25 mmol/L 21-33 Calcium 9.6 mg/dL 8.5-10.4 Glucose 92 mg/dL 65-99 71 Urea Nitrogen 15 mg/dL 7-30 Creatinine 0.8 mg/dL 0.5-1.2 BUN/Creatinine Ratio 17.6 6-25 GFR Estimated >60 ML/MIN/1.7 >59 72 Lipid Panel 03/07/2006 [facility] Cholesterol 190 mg/dL <[address] [place], [place] [id number] [phone] HDL Cholesterol 49 mg/dL >40 73 Cholesterol/HDL Ratio 3.9 <4.4 LDL Chol,Calculated 110 mg/dL <130 74 Triglycerides 156 mg/dL High <150 Laboratory test 09/06/2005 [facility] CK,Total 75 U/L 20-[address] [place] [address] [phone] Hepatic Function 09/06/2005 [facility] Alkaline 89 U/L 20-[address] [place] [address] [phone] Ast 20 U/L 3-35 Alt 19 U/L 3-40 Bilirubin,Total 0.5 mg/dL 0.2-1.3 Bilirubin,Direct 0.1 mg/dL 0.0-0.3 Protein,Total 7.0 g/dL 6.0-8.3 Albumin 4.3 g/dL 3.2-4.6 Lipid Panel 09/06/2005 [facility] Cholesterol 201 mg/dL High <[address] [place], [place] [id number] [phone] HDL Cholesterol 60 mg/dL >40 75 Triglycerides 142 mg/dL <150 Cholesterol/HDL Ratio 3.4 <4.4 LDL Chol,Calculated 113 mg/dL <130 76 Lipid Panel 08/01/2005 [facility] Cholesterol 236 mg/dL High <[address] [place] [address] [phone] Triglycerides 245 mg/dL High <150 HDL Cholesterol 43 mg/dL >40 77 Cholesterol/HDL Ratio 5.5 High <4.4 LDL Chol,Calculated 144 mg/dL High <130 78 1 FASTING 2 Reporting Limit: 0.50 mcg/mL Reported optimal range for free Phenobarbital: 7.5 - 20 mcg/mL. Analysis by High Performance Liquid Chromatography (HPLC) This test performed at: [facility] [address] [place] [id number] Director: Darrick Bower, PhD 3 LDL-C is now calculated using the Lyle calculation, which is a validated novel method providing better accuracy than the Friedewald equation in the estimation of LDL-C. Tony PENA et al.KIRAN.2013;31019):6659-3413 Desirable range <100 mg/dL for primary prevention; <70 mg/dL for patients with CHD or diabetic patients with >or=2 CHD risk factors. For additional information, please refer to http://[employer]/faq/UQM797(This link is being provided for informational/educational purposes [...] approximately 13% higher for people identified as -Beninese. 8 Relative blood cell counts (%) should [...] approximately 13% higher for people identified as -Beninese. 11 LDL-CHOLESTEROL RISK CATEGORY* GOAL VERY HIGH [...] approximately 13% higher for people identified as -Beninese. 15 LDL-CHOLESTEROL RISK CATEGORY* GOAL VERY HIGH [...] approximately 13% higher for people identified as -Beninese. 22 LDL-CHOLESTEROL RISK CATEGORY* GOAL VERY HIGH [...] more information on this test, go to http://[employer]/faq/25-OHVitaminD 32 REFERENCE RANGES BELOW ARE APPLICABLE TO FEMALES FIRST TRIMESTER - 0.26 - 2.66 mIU/L SECOND TRIMESTER - 0.55 - 2.73 mIU/L THIRD TRIMESTER - 0.43 - 2.91 mIU/L 33 GLUCOSE REFERENCE RANGE BASED ON FASTING SPECIMEN. 34 The upper reference limit for Creatinine is approximately 13% higher for people identified as -Beninese. 35 GLUCOSE REFERENCE RANGE BASED ON FASTING SPECIMEN. 36 The upper reference limit for Creatinine is approximately 13% higher for people identified as -Beninese. 37 LDL-CHOLESTEROL RISK CATEGORY* GOAL VERY HIGH [...] labeled container. This contains approximately eight rounded verdin colored pieces of soft tissue [...] TO COMPONENT ANALYTES CONSISTING OF dsDNA, CHROMATIN, SHAMPOO ASSISTANT, Sm, SSA, SSB, Lulu-1, CENTROMERE B, Scl-70, [...] FOR RACE, IF THE PATIENT RACE IS -CITIZEN OF [place], THE GFR ESTIMATE MUST BE MULTIPLIED BY [...] FOR RACE, IF THE PATIENT'S RACE IS -[place]IZEN OF [place], THE GFR ESTIMATE MUST BE MULTIPLIED BY [...] [phone] Procedures Date Code Description Status 07/17/2018 04239 Non-Invcorrotid/Comp /Bilat Study Completed 07/09/2018 40144 EKG-Tracing & Report Completed 07/08/2018 37366 Echocardiography Completed 06/05/2017 68890 Spirometry Graphic Record/Max Voluntary Vent Completed 06/05/2017 23136 EKG-Tracing & Report Completed 05/18/2016 31554 EKG-Tracing & Report Completed 05/15/2016 57184 Non-Invcorrotid/Comp /Bilat Study Completed 05/11/2016 92288 Echocardiography Completed 06/16/2015 86422 EKG-Tracing & Report Completed 06/15/2015 36234 Holter Monitor Office Completed 06/09/2015 84293 Non-Invcorrotid/Comp /Bilat Study Completed 06/03/2015 50671 Bone Density Completed 05/31/2015 22678 Echocardiography Completed 05/04/2014 [id number] Mammogram Completed 03/31/2014 74066 Spirometry Graphic Record/Max Voluntary Vent Completed 03/24/2014 64541 Non-Invcorrotid/Comp /Bilat Study Completed 05/22/2013 [id number] Bone Mineral Density Test Completed 05/22/2013 05408 Bone Density,Vertebral Fracture Completed 05/22/2013 46124 Bone Density Completed 07/16/2012 27705 EKG-Tracing & Report Completed 07/15/2012 47977 Non-Invcorrotid/Comp /Bilat Study Completed 07/15/2012 08486 Echocardiography Completed 07/24/2011 64371 EKG-Tracing & Report Completed 07/19/2011 27874 Non-Invcorrotid/Comp /Bilat Study Completed 07/19/2011 89305 Echocardiography Completed 07/18/2011 [id number] Colonoscopy Completed 07/23/2009 50981 PVR-Atrerial Study Completed 03/12/2009 39527 EKG-Tracing & Report Completed 03/10/2009 15023 Non-Invcorrotid/Comp /Bilat Study Completed 03/10/2009 64321 Echocardiography Completed 03/03/2008 55653 Non-Invcorrotid/Comp /Bilat Study Completed 03/03/2008 65302 Doppler Color Flow Velocity Completed 03/03/2008 92028 Doppler/ECHO Completed 03/03/2008 89960 ECHO-2D W/Wo M-Mode Completed 03/03/2008 75899 EKG-Tracing & Report Completed 03/07/2007 90465 EKG-Tracing & Report Completed 03/05/2007 17904 Doppler/ECHO Completed 03/05/2007 88175 ECHO-2D W/Wo M-Mode Completed 03/05/2007 61932 Doppler Color Flow Velocity Completed 03/05/2007 79712 Non-Invcorrotid/Comp /Bilat Study Completed 09/11/2006 88593 Non/Inv/Extremities. Dop/Venous Flow Global Fee Completed 03/07/2006 31922 EKG-Tracing & Report Completed 03/07/2006 58846 Vertebral Fracture Assessment Completed 03/07/2006 85232 Bone Density Study Completed 12/30/2004 62058 Non-Invcorrotid/Comp /Bilat Study Completed 12/30/2004 34079 Doppler Color Flow Velocity Completed 12/30/2004 61195 Doppler/ECHO Completed 12/30/2004 28527 ECHO-2D W/Wo M-Mode Completed 12/30/2004 41891 EKG-Tracing & Report Completed Encounters Type Date [...] 10:15a Main Office Yen Bills 272.40 Hyperlipidemia M.D. 402.10 Hypertensive Heart Disease Benign W/O Heart [...] Appointment(s):05/12/2019 8:00 am - Nurse at Main Rfobpw4605/19/2019 2: 00 pm - Yen Bills M.D. at Main Tdghpr6506/04/2018 - Yen Bills M.D.R14.0 Abdominal distension (gaseous)Comments:sonogram is normal, suspect has dysmotility, dscussed probiotics and soluble fiber
--- OUTSIDE RECORDS SUMMARY | 2019-04-26 09:32 | XMS REPORT | Continuity of Care Document ---
:1940 External Reference #:[id number] Author Name Yen Bills M.D. Address [address] [place] [address] Care Team Providers Name Role Phone Yen Bills MD Care Team Information Arson Investigator Unavailable Yen Bills MD Primary Care Physician Unavailable Payers Date Identification Numbers Payment Provider Subscriber Effective: Policy Number: [id number] Medicare Joceline De Luna 2003 PayID: [id number] [place] [address] Policy Number: [id number] [facility] Joceline De Luna Group Number: [id number] [address] PayID: [id number] [place] [address] Problems Active Problems Provider Date Hyperlipidemia Yen [...] days. Azithromycin take 2 tablets 6tabs J01.90 Yne Bills, 08/04/2015 - 250mg the first day; M.D. 05/21/2017 Tablets then 1 tablet daily for 4 days. Bentyl 1 by mouth 3 90caps Yen Bills, 06/02/2015 - 10mg Capsules times daily M.D. 07/10/2017 Naproxen 1 by mouth twice 60tabs 721.00 Yen Bills, 06/24/2014 - 500mg Tablets a day as needed M.D. 07/10/2017 Zostavax injection as 1units Yen Bills, 02/18/2013 - ordered M.D. 03/25/2014 83809Tlx/0.65ML Solution Rec Azithromycin Take 2 Tablets 6tabs 461.9 Yen Bills, 08/21/2012 - 250mg The First Day; M.D. 02/25/2015 Tablets Then 1 Tablet Daily For 4 Days. Azithromycin 1 po qd 5tabs Yen Bills, 11/09/2011 - 500mg M.D. 02/20/2012 Tablets Flonase 1 spray to each 6units Yen Bills, 02/27/2011 - 50mcg/Act nare qd M.D. 06/22/2015 Suspension Fexofenadine/Pseudoep take 1 tablet 60units eYn Bills, 07/20/2010 - hedrine twice a day [...] to each 6units Yen Bills, 2006 - 50mcg/[place] nare qd M.D. 02/27/2011 Suspension Zyrtec D one po bid 180tabs Yen Bills, 04/06/2006 - 5mg Tablets M.D. 03/19/2008 Prozac 1 po bid 180caps Yen Bills, 03/13/2006 - 20mg Capsules M.D. 09/17/2007 Zyrtec 1 po qd bid 200tabs Yen Bills, 02/23/2006 - 5mg Tablets M.D. 04/06/2006 Flonase 1 spray to each 3units Yen Bills, 09/18/2005 - 50mcg/[place] nare qd prn M.D. 10/13/2006 Suspension Prozac 2 po qd 30caps Yen Bills, 09/14/2005 - 20mg Capsules M.D. 03/13/2006 Phenobarbital 1 qd Yen Sanju, 08/14/2005 - 60mg M.D. 09/18/2005 Tablets Prozac 2 tabs po qd Yen Bills, 08/14/2005 - 20mg Capsules M.D. 09/14/2005 Flonase 1 spray to each Yen Bills, 08/14/2005 - 50mcg/[place] nare qd M.D. 09/18/2005 Suspension Zyrtec 1 PO qd 100tabs Yen Bills, 08/14/2005 - 10mg Tablets M.D. 02/23/2006 Pravachol 1 po qd Yen Sanju, 08/14/2005 - 20mg Tablets M.D. 09/06/2005 Phenobarbital 1 po qd 30tabs Yen Bills, - 60mg M.D. 09/17/2007 Tablets Immunizations CPT Code Status Date Vaccine Lot # [id number] Given 07/15/2018 Influenza Virus (Afluria) Split Virus 3 Years Of Age And Older Q2035 Given 07/10/2017 Influenza Virus (Afluria) Split Virus 3 Years [id number] Of Age And Older Q2037 Given 06/26/2016 Influenza Vaccine (Fluvirin) 1 Years Of Age Or [id number] Older Q2036 Given 07/23/2013 Flulaval Q2036 Given 07/23/2013 Flulaval [id number] Q2037 Given 07/16/2012 Influenza Vaccine (Fluvirin) 1 Years Of Age Or Older Q2037 Given 07/16/2012 Influenza Vaccine (Fluvirin) 1 Years Of Age Or [id number] Older Q2036 Given 07/12/2011 Flulaval [id number] Given 06/21/2010 Influenza Vaccine [id number] 61629 Given 02/17/2010 Pneumovax Polyvalent Inj Im [id number] 02801 Given 07/01/2009 Tetanus,Diphtheria,Adut/Adol Pertussis 5433 28839 Given 07/01/2009 Influenza Vaccine [id number] 16752 Given 07/14/2008 Influenza Vaccine [id number] 49855 Given 08/02/2007 Influenza Vaccine [id number] 63592 Given 09/27/2006 Influenza Vaccine [id number] 93610 Given 09/14/2005 Influenza Vaccine [id number] 94095 Given 09/14/2000 Pneumovax Polyvalent Inj Im Vital [...] Phenobarbital,Demetrio 11 g/mL 1, [address] e,Serum/[place] [address] [phone] Xray 05/20/2018 [facility] Abdominal <pending> [place] [address] Sonogram [phone] Lipid Panel 05/06/2018 [facility] Cholesterol 185 mg/dL <[address] [place] [address] [phone] HDL Cholesterol 50 mg/dL Low >50 Cholesterol/HDL Ratio 3.7 CALC <5.0 LDL Chol,Calculated 103 mg/dL High 0-100 3 Triglycerides 200 mg/dL High <150 Non-HDL Cholesterol 134 mg/dL High <130 4 Hepatic Function 05/06/2018 [facility] Alkaline Phosphatase 75 U/L 33- [address] [place], [place] [id number] [phone] Ast 20 U/L 10-35 Alt 21 U/L 6-29 Bilirubin,Total 0.3 mg/dL 0.2-1.2 Bilirubin,Direct 0.1 mg/dL < Or=0.2 Protein,Total 7.0 g/dL 6.1-8.1 Albumin 4.6 g/dL 3.6-5.1 Globulin,Calculated 2.4 g/dL 1.9-3.7 A/G Ratio 1.9 1.0-2.5 CBC W/ Diff & PLT 05/06/2018 [facility] WBC 7.2 thous/L 3.8-10.8 [address] [place] [address] [phone] RBC 4.48 mill/L 3.80-5.10 Hemoglobin 13.9 g/dL 11.7-15.5 Hematocrit 41.5 % 35.0-45.0 MCV 92.7 FL 80.0-100.0 MCH 30.9 pg 27.0-33.0 MCHC 33.4 g/dL 32.0-36.0 RDW 13.3 % 11.0-15.0 Platelet Count 288 thous/L 140-400 Platelet Sufficiency NORMAL Normal MPV 8.3 FL 7.5-12.5 Neutrophils,Absolute 3830 cells/L [phone] Bands,Absolute PENDING Metamyelocytes,Absolute PENDING Myelocytes,Absolute PENDING Promyelocytes,Absolute [...] [facility] Sodium 140 mmol/L 135-[address] [place] [address] [phone] Potassium 4.3 mmol/L 3.5-5.3 Chloride 106 mmol/L 98-110 Carbon Dioxide 26 mmol/L 20-31 Glucose 97 mg/dL 65-99 6 Urea Nitrogen (BUN) 11 mg/dL 7-25 Creatinine 0.80 mg/dL 0.60-0.93 7 BUN/Creatinine Ratio 13.5 6-22 CBC W/ Diff & PLT 05/08/2017 [facility] WBC 6.7 thous/L 3.8-10.8 [address] [place] [address] [phone] RBC 4.43 mill/L 3.80-5.10 Hemoglobin 13.4 g/dL 11.7-15.5 Hematocrit 40.5 % 35.0-45.0 MCV 91.5 FL 80.0-100.0 MCH 30.2 pg 27.0-33.0 MCHC 33.0 g/dL 32.0-36.0 RDW 13.2 % 11.0-15.0 Platelet Count 282 thous/L 140-400 Platelet Sufficiency PENDING MPV 8.5 FL 7.5-12.5 Neutrophils,Absolute 3600 cells/L [phone] Bands,Absolute PENDING Metamyelocytes,Absolute PENDING Myelocytes,Absolute PENDING Promyelocytes,Absolute [...] [facility] Sodium 140 mmol/L 135-146 [address] [place] [address] [phone] Potassium 4.4 mmol/L 3.5-5.3 Chloride 105 mmol/L 98-110 Carbon Dioxide 27 mmol/L 20-31 Glucose 108 mg/dL High 65-99 9 Urea Nitrogen 13 mg/dL 7-25 Creatinine 0.83 mg/dL 0.60-0.93 10 BUN/Creatinine Ratio 16.1 6-22 Lipid Panel 05/08/2017 [facility] Cholesterol 178 mg/dL 125-[address] [place], [place] [id number] [phone] HDL Cholesterol 39 mg/dL Low > Or=46 Cholesterol/HDL Ratio 4.6 < Or=5.0 LDL Chol,Calculated 92 mg/dL <130 11 Triglycerides 234 mg/dL High <150 Non-HDL Cholesterol 138 mg/dL 12 Laboratory test 05/08/2017 [facility] Phenobarbital 13.9 mg/L Low 15.0- 40.[address] [place] [address] [phone] BMP W/O Egfr 05/18/2016 [facility] Sodium 140 135-[address] mmol/[place] [address] [phone] Potassium 4.4 mmol/L 3.5-5.3 Chloride 106 mmol/L 98-110 Carbon Dioxide 26 mmol/L 20-31 Calcium 9.8 mg/dL 8.6-10.4 Glucose 95 mg/dL 65-99 13 Urea Nitrogen 16 mg/dL 7-25 Creatinine 0.87 mg/dL 0.60-0.93 14 BUN/Creatinine Ratio 18.9 6-22 Lipid Panel 05/18/2016 [facility] Cholesterol 172 mg/dL 125-[address] [place], [place] [id number] [phone] HDL Cholesterol 46 mg/dL > Or=46 Cholesterol/HDL Ratio 3.7 < Or=5.0 LDL Chol,Calculated 95 mg/dL <130 15 Triglycerides 155 mg/dL High <150 Non-HDL Cholesterol 127 mg/dL 16 Laboratory test 05/18/2016 [facility] Hemoglobin A1c 5.5 % 0.0-5.6 [address] [place] [address] [phone] TSH & T4,Free 05/18/2016 [facility] TSH 3.41 0.40-4.[address] mIU/L [place] [id number] [phone] T4,Free 1.0 ng/dL 0.8-1.8 CBC W/ Diff & PLT 05/18/2016 [facility] WBC 7.3 thous/L 3.8-10.8 [address] [place] [address] [phone] RBC 4.49 mill/L 3.80-5.10 Hemoglobin 13.8 g/dL 11.7-15.5 Hematocrit 42.2 % 35.0-45.0 MCV 94.0 FL 80.0-100.0 MCH 30.7 pg 27.0-33.0 MCHC 32.6 g/dL 32.0-36.0 RDW 13.9 % 11.0-15.0 Platelet Count 287 thous/L 140-400 Platelet Sufficiency PENDING MPV 8.0 FL 7.5-11.5 Neutrophils,Absolute 3760 cells/L 8780-3559 Bands,Absolute PENDING Metamyelocytes,Absolute PENDING Myelocytes,Absolute PENDING Promyelocytes,Absolute [...] [facility] Sodium 141 mmol/L 135-146 [address] [place] [address] [phone] Potassium 4.4 mmol/L 3.5-5.3 Chloride 105 mmol/L 98-110 Carbon Dioxide 25 mmol/L 19-30 Calcium 9.9 mg/dL 8.6-10.4 Glucose 91 mg/dL 65-99 20 Urea Nitrogen 16 mg/dL 7-25 Creatinine 0.81 mg/dL 0.60-0.93 21 BUN/Creatinine Ratio 19.6 6-22 Lipid Panel 06/15/2015 [facility] Cholesterol 171 mg/dL 125-200 [address] [facility] [place] [address] [phone] HDL Cholesterol 42 mg/dL Low > Or=46 Cholesterol/HDL Ratio 4.1 < Or=5.0 LDL Chol,Calculated 80 mg/dL <130 22 Triglycerides 244 mg/dL High <150 Non-HDL Cholesterol 129 mg/dL 23 CBC W/ Diff & PLT 06/15/2015 [facility] WBC 7.4 thous/L 3.8-10.8 [address] [place] [address] [phone] RBC 4.52 mill/L 3.80-5.10 Hemoglobin 13.6 g/dL 11.7-15.5 Hematocrit 42.2 % 35.0-45.0 MCV 93.3 FL 80.0-100.0 MCH 30.1 pg 27.0-33.0 MCHC 32.2 g/dL 32.0-36.0 RDW 13.8 % 11.0-15.0 Platelet Count 297 thous/L 140-400 Platelet Sufficiency PENDING MPV 8.2 FL 7.5-11.5 Neutrophils,Absolute 3940 cells/L 8866-0620 Bands,Absolute PENDING Metamyelocytes,Absolute PENDING Myelocytes,Absolute PENDING Promyelocytes,Absolute [...] Lab Phenobarbital 12.6 Low 15.0-40.[address] mg/[place] [address] [phone] Laboratory test 02/16/2015 [facility] Glucose,Plasma 102 High 65-99 [address] mg/[place] [address] [phone] Hemoglobin A1c 5.5 % 0.0-5.6 26 TSH & T4,Free 03/30/2014 [facility] TSH 2.21 mIU/L 0.40-4.[address] [place] [address] [phone] T4,Free 1.0 ng/dL 0.8-1.8 Lipid Panel 03/30/2014 [facility] Cholesterol 196 mg/dL 125-[address] [place] [address] [phone] HDL Cholesterol 51 mg/dL > Or=46 Cholesterol/HDL Ratio 3.8 < Or=5.0 LDL Chol,Calculated 114 mg/dL <130 28 Triglycerides 154 mg/dL High <150 Non-HDL Cholesterol 146 mg/dL 29 CBC W/ Diff & PLT 03/30/2014 [facility] WBC 7.1 thous/L 3.8-10.[address] [place] [address] [phone] RBC 4.45 mill/L 3.80-5.10 Hemoglobin 13.9 g/dL 11.7-15.5 Hematocrit 41.5 % 35.0-45.0 MCV 93.1 FL 80.0-100.0 MCH 31.2 pg 27.0-33.0 MCHC 33.5 g/dL 32.0-36.0 RDW 13.4 % 11.0-15.0 Platelet Count 309 thous/L 140-400 Platelet Sufficiency PENDING Neutrophils,Absolute 4000 cells/L 9747-9973 Bands,Absolute PENDING Metamyelocytes,Absolute PENDING Myelocytes,Absolute PENDING Promyelocytes,Absolute [...] LDL 91 mg/dL <130 [address] [place] [address] [phone] Vitamin D, 25 05/22/2013 [facility] Vitamin 39 ng/mL 30-[address] D,25-Oh,[place] [address] [phone] Vitamin D,25-Oh,D3 39 ng/mL Vitamin D,25-Oh,D2 <4 ng/mL 31 TSH & T4,Free 05/22/2013 [facility] TSH 2.58 mIU/L 0.40-4.[address] [place] [address] [phone] T4,Free 0.9 ng/dL 0.8-1.8 BMP W/O Egfr 05/22/2013 [facility] Sodium 141 mmol/L 135-[address] [place] [address] [phone] Potassium 4.6 mmol/L 3.5-5.3 Chloride 106 mmol/L 98-110 Carbon Dioxide 25 mmol/L 19-30 Calcium 9.2 mg/dL 8.6-10.4 Glucose 99 mg/dL 65-99 33 Urea Nitrogen 11 mg/dL 7-25 Creatinine 0.80 mg/dL 0.60-0.93 34 BUN/Creatinine Ratio 13.4 6-22 CBC W/ Diff & PLT 05/22/2013 [facility] WBC 6.4 thous/L 3.8-10.[address] [place] [address] [phone] RBC 4.43 mill/L 3.80-5.10 Hemoglobin 13.8 g/dL 11.7-15.5 Hematocrit 41.5 % 35.0-45.0 MCV 93.7 FL 80.0-100.0 MCH 31.0 pg 27.0-33.0 MCHC 33.1 g/dL 32.0-36.0 RDW 13.2 % 11.0-15.0 Platelet Count 272 thous/L 140-400 Neutrophils,Absolute 3320 cells/L 0331-0777 Lymphocytes,Absolute 2080 cells/L [phone] Monocytes,Absolute 720 cells/L 200-950 Eosinophils,Absolute 200 cells/L 15-500 Basophils,Absolute 60 cells/L 0-200 Total Neutrophils,% 52 % 38-80 Total Lymphocytes,% 33 % 15-49 Monocytes,% 11 % 0-13 Eosinophils,% 3 % 0-8 Basophils,% 1 % 0-2 Comp Metabolic Panel 07/16/2012 [facility] Sodium 142 mmol/L 135-[address] [place] [address] [phone] Potassium 4.4 mmol/L 3.5-5.3 Chloride 105 mmol/L [...] 2.2-3.9 A/G Ratio 1.8 1.0-2.1 Egfr Non-Afr. Somali 72 ML/MIN/1.73M2 > Or=60 Egfr 84 ML/MIN/1.73M2 > Or=60 Hepatic Function 07/16/2012 [facility] Alkaline Phosphatase 91 U/L 33- [address] [place], [place] [id number] [phone] Ast 20 U/L 10-35 Alt 22 U/L 6-40 Bilirubin,Total 0.3 mg/dL 0.2-1.2 Bilirubin,Direct 0.0 mg/dL < Or=0.2 Protein,Total 6.9 g/dL 6.2-8.3 Albumin 4.4 g/dL 3.6-5.1 Globulin,Calculated 2.5 g/dL 2.2-3.9 A/G Ratio 1.8 1.0-2.1 Laboratory 07/16/2012 [facility] LDL Cholesterol,Direct 116 <130 37 test finding [address] mg/dL [place], [place] [id number] [phone] CBC W/ Diff & 07/16/2012 [facility] WBC 8.2 3.8-10. PLT [address] [place] [address] L [phone] RBC 4.38 mill/L 3.80-5.10 Hemoglobin 14.0 g/dL 11.7-15.5 Hematocrit 41.7 % 35.0-45.0 MCV 95.2 FL 80.0-100.0 MCH 32.0 pg 27.0-33.0 MCHC 33.6 g/dL 32.0-36.0 RDW 13.3 % 11.0-15.0 Platelet Count 347 thous/L 140-400 Platelet Sufficiency NORMAL Normal Neutrophils,Absolute 4500 cells/L [phone] Lymphocytes,Absolute 2250 cells/L [phone] Monocytes,Absolute 900 cells/L 200-950 Eosinophils,Absolute 470 cells/L 15-500 Basophils,Absolute 70 cells/L 0-200 Total Neutrophils,% 55 % 38-80 Total Lymphocytes,% 27 % 15-49 Monocytes,% 11 % 0-13 Eosinophils,% 6 % 0-8 Basophils,% 1 % 0-2 RBC Morphology NORMAL Laboratory 07/16/2012 [facility] Phenobarbital 10.3 Low 15.0-40.0 test finding [address] mg/[place] [address] [phone] Laboratory 07/24/2011 [facility] LDL 108 <130 38 test finding [address] Cholesterol,Direc mg/[place] [address] t [phone] Basic 07/24/2011 [facility] Sodium 140 135-[address] mmol/[place] [address] [phone] Potassium 4.6 mmol/L 3.5-5.3 Chloride 105 mmol/L 98-110 Carbon Dioxide 26 mmol/L 21-33 Calcium 9.9 mg/dL 8.6-10.2 Glucose 91 mg/dL 65-99 39 Urea Nitrogen 17 mg/dL 7-25 Creatinine 0.86 mg/dL 0.63-1.22 BUN/Creatinine Ratio 20.1 6-22 Egfr Non-Afr. Somali 67 ML/MIN/1.73M2 > Or=60 Egfr 78 ML/MIN/1.73M2 > Or=60 CBC W/ Diff & PLT 07/24/2011 [facility] WBC 6.8 thous/L 3.8-10.[address] [place] [address] [phone] RBC 4.35 mill/L 3.80-5.10 Hemoglobin 13.6 g/dL 11.7-15.5 Hematocrit 41.3 % 35.0-45.0 MCV 94.8 FL 80.0-100.0 MCH 31.3 pg 27.0-33.0 MCHC 33.0 g/dL 32.0-36.0 RDW 13.0 % 11.0-15.0 Platelet Count 285 thous/L 140-400 Neutrophils,Absolute 3390 cells/L 5440-1079 Lymphocytes,Absolute 2270 cells/L [phone] Monocytes,Absolute 770 cells/L 200-950 Eosinophils,Absolute 330 cells/L 15-500 Basophils,Absolute 50 cells/L 0-200 Total Neutrophils,% 50 % 38-80 Total Lymphocytes,% 33 % 15-49 Monocytes,% 11 % 0-13 Eosinophils,% 5 % 0-8 Basophils,% 1 % 0-2 Laboratory test 02/20/2011 [facility] LDL Cholesterol,Direct 109 mg/dL < 130 [address] [place] [address] [phone] HDL Cholesterol 47 mg/dL > Or=46 Cholesterol 182 mg/dL 125-200 Triglycerides 181 mg/dL High <150 Laboratory test 07/22/2010 [facility] Polyp Colon See Note [address] [place] [address] [phone] CBC W/ Diff & PLT 07/19/2010 [facility] WBC 7.6 3.8-10. [address] thous/L 8 [place] [address] [phone] RBC 4.20 mill/L 3.80-5.10 Hemoglobin 13.5 g/dL 11.7-15.5 Hematocrit 39.0 % 35.0-45.0 MCV 92.9 FL 80.0-100.0 MCH 32.1 pg 27.0-33.0 MCHC 34.5 g/dL 32.0-36.0 RDW 12.6 % 11.0-15.0 Platelet Count 370 thous/L 140-400 Platelet Sufficiency NORMAL Normal Neutrophils,Absolute 4280 cells/L 8006-0907 Bands,Absolute DNR cells/L 0-750 Metamyelocytes,Absolute DNR cells/L [...] [facility] Sodium 140 mmol/L 135-[address] [place] [address] [phone] Potassium 4.7 mmol/L 3.5-5.3 Chloride 104 mmol/L 98-110 Carbon Dioxide 27 mmol/L 21-33 Calcium 9.7 mg/dL 8.6-10.2 Glucose 88 mg/dL 65-99 42 Urea Nitrogen 13 mg/dL 7-25 Creatinine 0.75 mg/dL 0.63-1.22 BUN/Creatinine Ratio 16.8 6-22 Egfr Non-Afr. Somali >60 ML/MIN/1.73M2 > Or=60 Egfr >60 ML/MIN/1.73M2 > Or=60 Lipid Panel 07/19/2010 [facility] Cholesterol 168 mg/dL 125-[address] [place] [address] [phone] HDL Cholesterol 44 mg/dL Low > Or=46 Triglycerides 211 mg/dL High <150 Cholesterol/HDL Ratio 3.8 < Or=5.0 LDL Chol,Calculated 82 mg/dL <130 43 Hepatic Function 07/19/2010 [facility] Alkaline Phosphatase 72 U/L 33- [address] [place] [address] [phone] Ast 18 U/L 10-35 Alt 17 U/L 6-40 Bilirubin,Total 0.3 mg/dL 0.2-1.2 Bilirubin,Direct 0.1 mg/dL < Or=0.2 Protein,Total 6.8 g/dL 6.2-8.3 Albumin 4.4 g/dL 3.6-5.1 Globulin,Calculated 2.4 g/dL 2.2-3.9 A/G Ratio 1.9 1.0-2.1 Laboratory 07/19/2010 [facility] Phenobarbital 12.7 Low 15.0-40.0 test finding [address] mg/[place] [address] [phone] Laboratory 03/15/2010 [facility] Phenobarbital 10.9 Low 15.0-40.0 44 test finding [address] mg/[place] [address] [phone] Hepatic 03/15/2010 [facility] Alkaline 61 U/L 33-130 Function Panel [address] [place] [address] [phone] Ast 22 U/L 10-35 Alt 23 U/L 6-40 Bilirubin,Total 0.3 mg/dL 0.2-1.2 Bilirubin,Direct 0.1 mg/dL < Or=0.2 Protein,Total 6.8 g/dL 6.2-8.3 Albumin 4.5 g/dL 3.6-5.1 Globulin,Calculated 2.3 g/dL 2.2-3.9 A/G Ratio 1.9 1.0-2.1 Lipid Panel 03/15/2010 [facility] Cholesterol 184 mg/dL 125-[address] [place], [place] [address] [phone] HDL Cholesterol 46 mg/dL > Or=46 Cholesterol/HDL Ratio 4.0 < Or=5.0 LDL Chol,Calculated 97 mg/dL <130 45 Triglycerides 205 mg/dL High <150 Laboratory test 07/06/2009 [facility] Iron,Total 115 g/dL 40-[address] [place] [address] [phone] Arthritis Profile 07/06/2009 [facility] Uric Acid 5.6 mg/dL 2.5-7.[address] [place] [address] [phone] Rheumatoid Factor 6 IU/mL <14 Aso AB 122 IU/mL <201 Anachoice (TM) Screen NEGATIVE Negative 46 Laboratory 07/06/2009 [facility] Heterophile,[place] NEGATIVE Negative test finding [address] [place] [address] [phone] Hepatic 07/06/2009 [facility] Alkaline 71 U/L 33-130 Function Panel [address] [place] [address] [phone] Ast 19 U/L 10-35 Alt 19 U/L 6-40 Bilirubin,Total 0.3 mg/dL 0.2-1.2 Bilirubin,Direct 0.0 mg/dL < Or=0.2 Protein,Total 6.9 g/dL 6.2-8.3 Albumin 4.4 g/dL 3.6-5.1 Globulin,Calculated 2.5 g/dL 2.2-3.9 A/G Ratio 1.8 1.0-2.1 Lipid Panel 06/17/2009 [facility] Cholesterol 184 mg/dL 125-[address] [place], [place] [address] [phone] HDL Cholesterol 51 mg/dL > Or=46 Triglycerides 193 mg/dL High <150 Cholesterol/HDL Ratio 3.6 < Or=5.0 LDL Chol,Calculated 94 mg/dL <130 48 Basic Metabolic Panel 06/17/2009 [facility] Sodium 140 mmol/L 135-146 [address] [facility] [place] [address] [phone] Potassium 4.4 mmol/L 3.5-5.3 Chloride 104 mmol/L 98-110 Carbon Dioxide 27 mmol/L 21-33 Calcium 9.3 mg/dL 8.6-10.2 Glucose 89 mg/dL 65-99 49 Urea Nitrogen 9 mg/dL 7-25 Creatinine 0.80 mg/dL 0.63-1.22 BUN/Creatinine Ratio 10.9 6-22 Egfr Non-Afr. Somali >60 ML/MIN/1.73M2 > Or=60 Egfr >60 ML/MIN/1.73M2 > Or=60 CBC W/ Diff & PLT 06/17/2009 [facility] WBC 6.3 thous/L 3.8-10.8 [address] [facility] [place] [address] [phone] RBC 4.51 mill/L 3.80-5.10 Hemoglobin 14.1 g/dL 11.7-15.5 Hematocrit 41.8 % 35.0-45.0 MCV 92.7 FL 80.0-100.0 MCH 31.4 pg 27.0-33.0 MCHC 33.8 g/dL 32.0-36.0 RDW 13.4 % 11.0-15.0 Platelet Count 312 thous/L 140-400 Platelet Sufficiency NORMAL Normal Neutrophils,Absolute 3090 cells/L 0984-7157 Bands,Absolute DNR cells/L 0-750 Metamyelocytes,Absolute DNR cells/L [...] TSH,3RD 2.58 mU/L 0.40-4.[address] [place] [address] [phone] T4,Free 1.0 ng/dL 0.8-1.8 CBC W/ Diff & PLT 03/12/2009 [facility] WBC 7.8 thous/L 3.8-10.[address] [place] [address] [phone] RBC 4.20 mill/L 3.80-5.10 Hemoglobin 13.3 g/dL 11.7-15.5 Hematocrit 38.7 % 35.0-45.0 MCV 92.1 FL 80.0-100.0 MCH 31.8 pg 27.0-33.0 MCHC 34.5 g/dL 32.0-36.0 RDW 12.6 % 11.0-15.0 Platelet Count 401 thous/L High 140-400 Platelet Sufficiency NORMAL Normal Neutrophils,Absolute 4380 cells/L [phone] Bands,Absolute DNR cells/L 0-750 Metamyelocytes,Absolute DNR cells/L [...] [facility] Sodium 140 mmol/L 135-[address] [place] [address] [phone] Potassium 4.4 mmol/L 3.5-5.3 Chloride 104 mmol/L 98-110 Carbon Dioxide 28 mmol/L 21-33 Calcium 9.4 mg/dL 8.6-10.2 Glucose 95 mg/dL 65-99 51 Urea Nitrogen 11 mg/dL 7-25 Creatinine 0.86 mg/dL 0.63-1.22 BUN/Creatinine Ratio 13.3 6-22 Egfr Non-Afr. Somali >60 ML/MIN/1.73M2 > Or=60 Egfr >60 ML/MIN/1.73M2 > Or=60 Hepatic Function 03/12/2009 [facility] Alkaline Phosphatase 84 U/L 33- [address] [place] [address] [phone] Ast 21 U/L 10-35 Alt 17 U/L 6-40 Bilirubin,Total 0.2 mg/dL 0.2-1.2 Bilirubin,Direct 0.1 mg/dL < Or=0.2 Protein,Total 6.8 g/dL 6.2-8.3 Albumin 4.4 g/dL 3.6-5.1 Globulin,Calculated 2.4 g/dL 2.2-3.9 A/G Ratio 1.8 1.0-2.1 Laboratory test 03/12/2009 [facility] TSH,3RD 2.71 mU/L 0.40-4.[address] [place] [address] [phone] Lipid Panel 06/30/2008 [facility] Cholesterol 185 mg/dL 125-[address] [place] [address] [phone] HDL Cholesterol 54 mg/dL > Or=46 Cholesterol/HDL Ratio 3.4 < Or=5.0 LDL Chol,Calculated 102 mg/dL <130 53 Triglycerides 145 mg/dL <150 Laboratory test 04/23/2008 [facility] Pathology Exam (SEE NOTE) [address] [place] [address] [phone] Culture,Urine,Void 03/19/2008 [facility] Source URINE-CC ed [address] [place] [address] [phone] Preliminary Report DNR Interim Report DNR Organism #1 DNR Organism #2 DNR Organism #3 DNR Organism #4 DNR 4399 DNR CBC W/ Diff & PLT 03/03/2008 [facility] WBC 7.2 thous/L 3.8-10.8 [address] [facility] [place] [address] [phone] RBC 4.39 mill/L 3.80-5.10 Hemoglobin 13.7 g/dL 11.7-15.5 Hematocrit 39.9 % 35.0-45.0 MCV 90.7 FL 80.0-100.0 MCH 31.1 pg 27.0-33.0 MCHC 34.3 g/dL 32.0-36.0 RDW 13.5 % 11.0-15.0 Platelet Count 332 thous/L 140-400 Platelet Sufficiency NORMAL Normal Neutrophils,Absolute 3350 cells/L [phone] Bands,Absolute DNR cells/L 0-750 Metamyelocytes,Absolute DNR cells/L [...] [facility] Sodium 141 mmol/L 135-[address] [place] [address] [phone] Potassium 4.6 mmol/L 3.5-5.3 Chloride 104 mmol/L 98-110 Carbon Dioxide 30 mmol/L 21-33 Calcium 9.6 mg/dL 8.6-10.2 Glucose 93 mg/dL 65-99 55 Urea Nitrogen 14 mg/dL 7-25 Creatinine 0.81 mg/dL 0.50-1.20 BUN/Creatinine Ratio 17.8 6-22 Egfr Non-Afr. Somali >60 ML/MIN/1.7 > Or=60 Egfr >60 ML/MIN/1.7 > Or=60 Lipid Panel 03/03/2008 [facility] Cholesterol 176 mg/dL 125-[address] [place] [address] [phone] HDL Cholesterol 48 mg/dL > Or=40 56 Cholesterol/HDL Ratio 3.7 < Or=5.0 LDL Chol,Calculated 104 mg/dL <130 57 Triglycerides 120 mg/dL <150 Laboratory test 03/03/2008 [facility] TSH,3RD 2.90 mU/L 0.40-4.[address] [place] [address] [phone] T4,Free 1.2 ng/dL 0.8-1.8 Lipid Panel 09/04/2007 [facility] Cholesterol 213 mg/dL High 125-[address] [place] [address] [phone] HDL Cholesterol 47 mg/dL > Or=40 59 Cholesterol/HDL Ratio 4.5 < Or=5.0 LDL Chol,Calculated 122 mg/dL <130 60 Triglycerides 218 mg/dL High <150 CBC W/ Diff & PLT 03/07/2007 [facility] WBC 6.9 thous/L 3.8-10.[address] [place] [address] [phone] RBC 4.42 mill/L 3.80-5.10 Hemoglobin 13.9 g/dL 11.7-15.5 Hematocrit 40.1 % 35.0-45.0 MCV 90.6 FL 80.0-100.0 MCH 31.4 pg 27.0-33.0 MCHC 34.6 g/dL 32.0-36.0 RDW 13.3 % 11.0-15.0 Platelet Count 313 thous/L 140-400 Platelet Sufficiency NORMAL Normal Neutrophils,Absolute 3870 cells/L [phone] Bands,Absolute DNR cells/L 0-750 Metamyelocytes,Absolute DNR cells/L [...] Lab Phenobarbital 11.8 Low 15.0-40.[address] mg/[place] [address] [phone] Phenytoin (Dilantin) <2.5 mg/L Low 10.0-20.0 61 Hepatic Function 03/07/2007 [facility] Alkaline Phosphatase 72 U/L 33- [address] [place] [address] [phone] Ast 22 U/L 10-35 Alt 16 U/L 6-40 Bilirubin,Total 0.4 mg/dL 0.2-1.2 Bilirubin,Direct 0.1 mg/dL < Or=0.2 Protein,Total 6.9 g/dL 6.2-8.3 Albumin 4.3 g/dL 3.6-5.1 Lipid Panel 03/07/2007 [facility] Cholesterol 173 mg/dL 125-[address] [place] [address] [phone] HDL Cholesterol 48 mg/dL > Or=40 62 Cholesterol/HDL Ratio 3.6 < Or=5.0 LDL Chol,Calculated 101 mg/dL <130 63 Triglycerides 120 mg/dL <150 Basic Metabolic Panel 03/07/2007 [facility] Sodium 141 mmol/L 135-[address] [place] [address] [phone] Potassium 4.3 mmol/L 3.5-5.3 Chloride 106 mmol/L 98-110 Carbon Dioxide 28 mmol/L 21-33 Calcium 9.3 mg/dL 8.6-10.2 Glucose 93 mg/dL 65-99 64 Urea Nitrogen 12 mg/dL 7-25 Creatinine 0.9 mg/dL 0.5-1.2 BUN/Creatinine Ratio 13.5 6-22 GFR Estimated >60 ML/MIN/1.7 >59 65 Laboratory 12/12/2006 [facility] Phenobarbital <5.0 Low 15.0-40.0 66, 67 test finding [address] mg/[place] [address] [phone] Hemoglobin A1c 5.8 % <6.0 Lipid Panel 09/12/2006 [facility] Cholesterol 218 mg/dL High <[address] [place] [address] [phone] HDL Cholesterol 58 mg/dL >40 69 Cholesterol/HDL Ratio 3.8 <4.4 LDL Chol,Calculated 120 mg/dL <130 70 Triglycerides 201 mg/dL High <150 Laboratory test finding 03/07/2006 [facility] TSH 1.99 mU/L 0.40-5.[address] [place] [address] [phone] CBC W/ Diff & PLT 03/07/2006 [facility] WBC 6.3 thous/L 3.8-10.8 [address] [place] [address] [phone] RBC 4.52 mill/L 3.80-5.10 Hemoglobin 13.7 g/dL 11.7-15.5 Hematocrit 40.8 % 35.0-45.0 MCV 90.0 FL 80.0-100.0 MCH 30.3 pg 27.0-33.0 MCHC 33.6 g/dL 32.0-36.0 RDW 13.3 % 11.0-15.0 Platelet Count 342 thous/L 140-400 Platelet Sufficiency NORMAL Neutrophils,Absolute 3310 cells/L [phone] Bands,Absolute DNR cells/L 0-750 Metamyelocytes,Absolute DNR cells/L [...] [facility] Sodium 142 mmol/L 135-146 [address] [place] [address] [phone] Potassium 4.5 mmol/L 3.5-5.3 Chloride 106 mmol/L 98-110 Carbon Dioxide 25 mmol/L 21-33 Calcium 9.6 mg/dL 8.5-10.4 Glucose 92 mg/dL 65-99 71 Urea Nitrogen 15 mg/dL 7-30 Creatinine 0.8 mg/dL 0.5-1.2 BUN/Creatinine Ratio 17.6 6-25 GFR Estimated >60 ML/MIN/1.7 >59 72 Lipid Panel 03/07/2006 [facility] Cholesterol 190 mg/dL <[address] [place] [address] [phone] HDL Cholesterol 49 mg/dL >40 73 Cholesterol/HDL Ratio 3.9 <4.4 LDL Chol,Calculated 110 mg/dL <130 74 Triglycerides 156 mg/dL High <150 Laboratory test 09/06/2005 [facility] CK,Total 75 U/L 20-[address] [place] [address] [phone] Hepatic Function 09/06/2005 [facility] Alkaline 89 U/L 20-[address] [place] [address] [phone] Ast 20 U/L 3-35 Alt 19 U/L 3-40 Bilirubin,Total 0.5 mg/dL 0.2-1.3 Bilirubin,Direct 0.1 mg/dL 0.0-0.3 Protein,Total 7.0 g/dL 6.0-8.3 Albumin 4.3 g/dL 3.2-4.6 Lipid Panel 09/06/2005 [facility] Cholesterol 201 mg/dL High <[address] [place] [address] [phone] HDL Cholesterol 60 mg/dL >40 75 Triglycerides 142 mg/dL <150 Cholesterol/HDL Ratio 3.4 <4.4 LDL Chol,Calculated 113 mg/dL <130 76 Lipid Panel 08/01/2005 [facility] Cholesterol 236 mg/dL High <[address] [place] [address] [phone] Triglycerides 245 mg/dL High <150 HDL Cholesterol 43 mg/dL >40 77 Cholesterol/HDL Ratio 5.5 High <4.4 LDL Chol,Calculated 144 mg/dL High <130 78 1 FASTING 2 Reporting Limit: 0.50 mcg/mL Reported optimal range for free Phenobarbital: 7.5 - 20 mcg/mL. Analysis by High Performance Liquid Chromatography (HPLC) This test performed at: [facility] [address] [place] [id number] Director: Darrick Bower, PhD 3 LDL-C is now calculated using the Lyle calculation, which is a validated novel method providing better accuracy than the Friedewald equation in the estimation of LDL-C. Tony PENA et al.KIRAN.2013;310(19):7922-8222 Desirable range <100 mg/dL for primary prevention; <70 mg/dL for patients with CHD or diabetic patients with >or=2 CHD risk factors. For additional information, please refer to http://[employer].The Simple/faq/TLK501(This link is being provided for informational/educational purposes [...] approximately 13% higher for people identified as -Somali. 8 Relative blood cell counts (%) should [...] approximately 13% higher for people identified as -Somali. 11 LDL-CHOLESTEROL RISK CATEGORY* GOAL VERY HIGH [...] approximately 13% higher for people identified as -Somali. 15 LDL-CHOLESTEROL RISK CATEGORY* GOAL VERY HIGH [...] Reference Intervals, 7th Ed, [employer], 2011. 20 GLUCOSE REFERENCE RANGE BASED ON FASTING SPECIMEN. 21 The upper reference limit for Creatinine is approximately 13% higher for people identified as -Somali. 22 LDL-CHOLESTEROL RISK CATEGORY* GOAL VERY HIGH [...] derived from Pediatric Reference Intervals, 7th Ed, [employer], 2011. Relative differential counts should be [...] more information on this test, go to http://[employer].StratusLIVE/faq/25-OHVitaminD 32 REFERENCE RANGES BELOW ARE APPLICABLE TO FEMALES FIRST TRIMESTER - 0.26 - 2.66 mIU/L SECOND TRIMESTER - 0.55 - 2.73 mIU/L THIRD TRIMESTER - 0.43 - 2.91 mIU/L 33 GLUCOSE REFERENCE RANGE BASED ON FASTING SPECIMEN. 34 The upper reference limit for Creatinine is approximately 13% higher for people identified as -Somali. 35 GLUCOSE REFERENCE RANGE BASED ON FASTING SPECIMEN. 36 The upper reference limit for Creatinine is approximately 13% higher for people identified as -Somali. 37 LDL-CHOLESTEROL RISK CATEGORY* GOAL VERY HIGH [...] TO COMPONENT ANALYTES CONSISTING OF dsDNA, CHROMATIN, COMPUTER DISCOVERY TEACHER, Sm, SSA, SSB, Lulu-1, CENTROMERE B, Scl-70, [...] FOR RACE, IF THE PATIENT RACE IS -[place], THE GFR ESTIMATE MUST BE MULTIPLIED BY [...] FOR RACE, IF THE PATIENT'S RACE IS -[place], THE GFR ESTIMATE MUST BE MULTIPLIED BY [...] * NCEP REPORT. CIRCULATION 2003; 110: [phone] 77 HDL REFERENCE RANGES ADULTS [...] 227-239 Procedures Date Code Description Status 07/17/2018 10710 Non-Invcorrotid/Comp /Bilat Study Completed 07/09/2018 08983 EKG-Tracing & Report Completed 07/08/2018 05294 Echocardiography Completed 06/05/2017 93717 Spirometry Graphic Record/Max Voluntary Vent Completed 06/05/2017 20491 EKG-Tracing & Report Completed 05/18/2016 36705 EKG-Tracing & Report Completed 05/15/2016 13034 Non-Invcorrotid/Comp /Bilat Study Completed 05/11/2016 63742 Echocardiography Completed 06/16/2015 73698 EKG-Tracing & Report Completed 06/15/2015 29089 Holter Monitor Office Completed 06/09/2015 60226 Non-Invcorrotid/Comp /Bilat Study Completed 06/03/2015 44905 Bone Density Completed 05/31/2015 44856 Echocardiography Completed 05/04/2014 43957324 Mammogram Completed 03/31/2014 55684 Spirometry Graphic Record/Max Voluntary Vent Completed 03/24/2014 47731 Non-Invcorrotid/Comp /Bilat Study Completed 05/22/2013 894121108 Bone Mineral Density Test Completed 05/22/2013 92814 Bone Density,Vertebral Fracture Completed 05/22/2013 00892 Bone Density Completed 07/16/2012 77762 EKG-Tracing & Report Completed 07/15/2012 58617 Non-Invcorrotid/Comp /Bilat Study Completed 07/15/2012 61749 Echocardiography Completed 07/24/2011 71358 EKG-Tracing & Report Completed 07/19/2011 79523 Non-Invcorrotid/Comp /Bilat Study Completed 07/19/2011 24701 Echocardiography Completed 07/18/2011 08805899 Colonoscopy Completed 07/23/2009 54864 PVR-Atrerial Study Completed 03/12/2009 46504 EKG-Tracing & Report Completed 03/10/2009 14070 Non-Invcorrotid/Comp /Bilat Study Completed 03/10/2009 02149 Echocardiography Completed 03/03/2008 66434 Non-Invcorrotid/Comp /Bilat Study Completed 03/03/2008 67489 Doppler Color Flow Velocity Completed 03/03/2008 27296 Doppler/ECHO Completed 03/03/2008 89743 ECHO-2D W/Wo M-Mode Completed 03/03/2008 14652 EKG-Tracing & Report Completed 03/07/2007 17299 EKG-Tracing & Report Completed 03/05/2007 53207 Doppler/ECHO Completed 03/05/2007 05687 ECHO-2D W/Wo M-Mode Completed 03/05/2007 45458 Doppler Color Flow Velocity Completed 03/05/2007 99605 Non-Invcorrotid/Comp /Bilat Study Completed 09/11/2006 00539 Non/Inv/Extremities. Dop/Venous Flow Global Fee Completed 03/07/2006 28177 EKG-Tracing & Report Completed 03/07/2006 16511 Vertebral Fracture Assessment Completed 03/07/2006 21349 Bone Density Study Completed 12/30/2004 70043 Non-Invcorrotid/Comp /Bilat Study Completed 12/30/2004 11170 Doppler Color Flow Velocity Completed 12/30/2004 62406 Doppler/ECHO Completed 12/30/2004 64012 ECHO-2D W/Wo M-Mode Completed 12/30/2004 31739 EKG-Tracing & Report Completed Encounters Type Date [...] Office Visit 02/23/2016 2:45p Main Office Yen Bills R56.9 Unspecified M.D. convulsions Office Visit 08/04/2015 11:45a Main Office Yen Bills E78.5 Hyperlipidemia, M.D. unspecified R56.9 Unspecified convulsions Office Visit 06/22/2015 10:45a Main Office Yen Bills, 272.4 Hyperlipidemia Other M.D. Unspec 780.39 Convulsions Other Office Visit 06/02/2015 1:45p Main Office Yen Bills M.D. 787.91 Diarrhea 564.1 Irritable Bowel Syndrome Office Visit 02/25/2015 1:30p Main Office Yen Bills, 272.4 Hyperlipidemia Other [...] Office Visit 02/24/2014 3:00p Main Office Yen Bills, 402.10 Hypertensive Heart M.D. Disease Benign W/O Heart Failure 272.4 Hyperlipidemia Other Unspec 780.39 Convulsions Other Office Visit 07/16/2013 2:00p Main Office Yen Bills, 402.10 Hypertensive Heart M.D. Disease Benign W/O Heart Failure 733.01 Osteoporosis Senile 272.4 Hyperlipidemia Other Unspec Office Visit 05/29/2013 10:00a Main Office Yen Bills, 402.10 Hypertensive Heart M.D. Disease Benign W/O Heart Failure 780.39 Convulsions Other Office Visit 02/18/2013 10:30a Main Office Yen Bills, 402.10 Hypertensive Heart M.D. Disease Benign W/O Heart Failure 780.39 Convulsions Other 272.4 Hyperlipidemia Other Unspec Office Visit 08/21/2012 10:45a Main Office Yen Bills, 461.9 Sinusitis Acute M.D. Unspec Office Visit 07/29/2012 2:30p Main Office Yen Bills, 402.10 Hypertensive Heart M.D. Disease Benign W/O Heart Failure 780.39 Convulsions Other 477.90 Allergies Office Visit 02/20/2012 10:15a Main Office Yen Bills 272.4 Hyperlipidemia Other M.D. Unspec 402.10 Hypertensive Heart Disease Benign W/O Heart Failure Office Visit 08/03/2011 11:00a Main Office Yen Bills 272.4 Hyperlipidemia Other M.D. Unspec 402.10 Hypertensive Heart Disease Benign W/O Heart Failure 780.39 Convulsions Other Office Visit 02/27/2011 10:00a Main Office Yen Bills 272.4 Hyperlipidemia [...] Appointment(s):05/12/2019 8:00 am - Nurse at Main Disqsd6805/19/2019 2: 00 pm - Yen Bills M.D. at Main Iigzqk0406/04/2018 - Yen Bills M.D.R14.0 Abdominal distension (gaseous)Comments:sonogram is normal, suspect has dysmotility, dscussed probiotics and soluble fiber
--- OUTSIDE RECORDS SUMMARY | 2019-04-26 09:32 | XMS REPORT | Continuity of Care Document ---
:1940 External Reference #:[id number] Author Name Brooke Rodrigez Care Team Providers Name Role Phone Yen Bills MD Primary Care Physician Unavailable Payers Date Identification Numbers Payment Provider Subscriber Policy Number: [id number] Medicare Joceline Swanson PayID: [id number] [address] [place] [address] Policy Number: [id number] Facets Joceline Swanson PayID: [id number] [address] [address] [place] [address] Family History Date Family Member(s) Observation Comments General Heart Disease General Cancer General Diabetes General Depression Social History Type Date Description Comments Sex Unknown Occupation Retired Medications Active Medications SIG Qnty Indications Ordering Provider Date Dicyclomine HCL 1 capsule by Unknown 10mg mouth three times Capsules daily Phenobarbital 1 tab by mouth at Unknown 97.2mg bedtime Tablets Flonase Allergy Relief 1 puff each Unknown nostril daily 50mcg/Act Suspension Prozac 2 capsules by Unknown 20mg Capsules mouth every day Crestor 1 by mouth every Unknown 10mg Tablets day Calcium 600+D High 1 by mouth twice Unknown Potency a day [id number] Tablets Plan of Treatment Future Appointment(s):07/17/2019 3:30 pm - Delfina Bautista MD at [facility] Dermatology AT Bjhubexo04/21/2019 1:30 pm - Sonu Oreilly M.D., FACC, FASNC at [facility]
--- OUTSIDE RECORDS SUMMARY | 2019-04-26 09:32 | XMS REPORT | Continuity of Care Document ---
:1940 External Reference #:[id number] Author Name Brooke Rodrigez Care Team Providers Name Role Phone Yen Bills MD Primary Care Physician Unavailable Payers Date Identification Numbers Payment Provider Subscriber Policy Number: [id number] Medicare Joceline Swanson PayID: [id number] [address] [place] [address] Policy Number: [id number] Facets Joceline Swanson PayID: [id number] [address] [address] [place] [address] Family History Date Family Member(s) Observation Comments [...] by mouth twice Unknown Potency a day [id number] Tablets Plan of Treatment Future Appointment(s):07/17/2019 3:30 pm - Delfina Bautista MD at [facility] Dermatology AT Dzizitdu65/21/2019 1:30 pm - Sonu Oreilly M.D., FACC, FASNC at [facility]
--- OUTSIDE RECORDS SUMMARY | 2019-04-26 09:32 | XMS REPORT | Continuity of Care Document ---
:1940 External Reference #:[id number] Author Name Brooke Rodrigez Care Team Providers Name Role Phone Yen Bills MD Primary Care Physician Unavailable Payers Date Identification Numbers Payment Provider Subscriber Policy Number: [id number] Medicare Joceline Swanson PayID: [id number] [address] [place] [address] Policy Number: [id number] Facets Joceline Swanson PayID: [id number] [address] [address] [place] [address] Family History Date Family Member(s) Observation Comments [...] by mouth twice Unknown Potency a day [id number] Tablets Plan of Treatment Future Appointment(s):07/17/2019 3:30 pm - Delfina Bautista MD at [facility] Dermatology AT Msdxwjpb84/21/2019 1:30 pm - Sonu Oreilly M.D., FACC, FASNC at [facility]
--- OUTSIDE RECORDS SUMMARY | 2019-04-26 09:32 | XMS REPORT | Continuity of Care Document ---
:1940 External Reference #:[id number] Author Name Cheri Ureña Care Team Providers Name Role Phone Yen Bills MD Primary Care Physician Unavailable Payers Date Identification Numbers Payment Provider Subscriber Policy Number: [id number] Medicare Joceline Swanson PayID: [id number] [address] [place] [address] Policy Number: [id number] BS Facets Joceline Swanson PayID: [id number] [address] [address] [place] [address] Problems Active Problems Provider Date Difficulty breathing Sonu Oreilly M.D., [facility], FASHI Onset: 04/04/2019 Palpitations Sonu Oreilly M.D., [facility], FASHI Onset: 04/04/2019 Family History Date Family Member(s) Observation Comments General Heart Disease General Cancer General Diabetes General Depression Father Diabetes Father Paternal grandfather=DM Mother Heart Disease Mother maternal grandfather=DC Social History Type Date Description Comments Sex Unknown Marital Status Lives With Occupation Retired ETOH Use Currently consumes Glass of wine at alcohol nitght Tobacco Use Start: Unknown Patient has never smoked Recreational Drug Use Denies Drug Use Smoking Status Reviewed: 04/04/19 Patient has never smoked Exercise Type/Frequency Exercises regularly golf weekly,mows lawn and walks the dog Allergies, Adverse Reactions, Alerts Active Allergies Reaction Severity Comments Date Dilantin 04/04/2019 Medications Active Medications SIG Qnty Indications Ordering Provider Date Dicyclomine HCL 1 capsule by Unknown 10mg mouth three times Capsules daily as needed Phenobarbital 1 tab by mouth at Unknown 97.2mg bedtime Tablets Flonase Allergy Relief 1 puff each Unknown nostril daily 50mcg/Act Suspension Prozac 2 capsules by Unknown 20mg Capsules mouth every day Crestor 1 by mouth every Unknown 10mg Tablets day Calcium 600+D High 1 by mouth daily Unknown Potency [id number] Tablets Aspirin Adult take one tab by Unknown 325mg Tablets mouth daily Vital Signs Date Vital Result Comment 04/04/2019 1:03pm Height 63 inches 5'3" Weight 142.00 lb Heart Rate 76 /min sl irregular BP Systolic 166 mmHg Ra Large Cuff BP Diastolic 96 mmHg Ra Large Cuff BP Systolic Sitting 166 mmHg LA Large Cuff BP Diastolic Sitting 80 mmHg LA Large Cuff BP Systolic Standing 162 mmHg LA Large Cuff BP Diastolic Standing 88 mmHg LA Large Cuff Respiratory Rate 16 /min Pain Level 0 O2 % BldC Oximetry 97 % BMI (Body Mass Index) 25.2 kg/m2 Procedures Date Code Description Status 04/04/2019 80167 EKG Tracing & Interpretation Completed Plan of Treatment Future Appointment(s):07/17/2019 3:30 pm - Delfina Bautista MD at [facility] Dermatology AT Boqihren22/21/2019 - Sonu Oreilly M.D., [facility], RXOIFG56.2 PalpitationsNew Labs:Basic Metabolic Panel, Ordered: 04/04/19Magnesium, Ordered : 04/04/19TSH (Thyroid Stim Horm), Ordered: 04/04/19CBC Auto Diff, Ordered: New Orders:[facility] Tele[facility], Ordered: Follow up:after cardiac uaqvhgbY86.00 Dyspnea, unspecifiedNew Orders: Echocardiogram, Ordered: 04/04/19Stress Test, Exercise Nuclear, Ordered:
--- OUTSIDE RECORDS SUMMARY | 2019-04-26 09:32 | XMS REPORT | Continuity of Care Document ---
:1940 External Reference #:[id number] Author Name Brooke Rodrigez Care Team Providers Name Role Phone Yen Bills MD Primary Care Physician Unavailable Payers Date Identification Numbers Payment Provider Subscriber Policy Number: [id number] Medicare Joceline Swanson PayID: [id number] [address] [place] [address] Policy Number: [id number] Facets Joceline Swanson PayID: [id number] [address] [address] [place] [address] Family History Date Family Member(s) Observation Comments [...] by mouth twice Unknown Potency a day [id number] Tablets Plan of Treatment Future Appointment(s):07/17/2019 3:30 pm - Delfina Bautista MD at [facility] Dermatology AT Vfhtuxrt92/21/2019 1:30 pm - Sonu Oreilly M.D., FACC, FASNC at [facility]
[2019-04-26 09:33] VITALS: BP 154/60
--- NOTE | 2019-04-26 09:53 | UC ---
Respiratory Complaint HPI - HPI Summary HPI Summary: per carriage operator: "Dry, persistent cough started yesterday. Keeping her up at night. Denies fever or chills. " -she says she gets this in [place] and gets dx'd with bronchitis and is treated always w/ a savanahpack. non-smoker. no COPD or asthma. -no fever/chills. -no wheezing. -hasnt needed albuterol for any of these episodes in decades. no prednisone needed - History of Current Complaint Chief Complaint: UCRespiratory Stated Complaint: COUGH Time Seen by Provider: 04/26/19 09:31 Pain Intensity: 0 - Allergies/Home Medications Allergies/Adverse Reactions: Allergies Allergy/AdvReac Type Severity Reaction Status Date / Time dust, animals Allergy Unknown Uncoded 04/26/19 09:28 Reaction Details PMH/Surg Hx/FS Hx/Imm Hx Previously Healthy: Yes Neurological History: Seizures - Surgical History Surgical History: Yes Surgery Procedure, Year, and Place: right meniscus - Family History Known Family History: Positive: Hypertension - Social History Alcohol Use: Daily Alcohol Amount: 1 wine Substance Use Type: None Smoking Status (MU): Never Smoked Tobacco Review of Systems All Other Systems Reviewed And Are Negative: Yes Constitutional: Positive: Negative. Negative: Fever, Chills, Fatigue Skin: Positive: Negative Eyes: Positive: Negative ENT: Positive: Negative Respiratory: Positive: Cough. Negative: Shortness Of Breath Cardiovascular: Positive: Negative Gastrointestinal: Positive: Negative Genitourinary: Positive: Negative Motor: Positive: Negative Neurovascular: Positive: Negative Musculoskeletal: Positive: Negative Neurological: Positive: Negative Psychological: Positive: Negative Is Patient Immunocompromised?: No Physical Exam Triage Information Reviewed: Yes Appearance: Well-Appearing, No Pain Distress, Well-Nourished - appears younger than stated age. great attitude Vital Signs: Initial Vital Signs Temp 98.1 F 04/26/19 09:29 Pulse 57 04/26/19 09:29 Resp 16 04/26/19 09:29 BP 154/60 04/26/19 09:29 Pulse Ox 97 04/26/19 09:29 Vital Signs Reviewed: Yes Eye Exam: Normal Eyes: Positive: Conjunctiva Clear ENT Exam: Normal ENT: Positive: Pharynx normal, TMs normal, Uvula midline. Negative: TM bulging , TM dull, TM red, Tonsillar exudate, Sinus tenderness Dental Exam: Normal Neck exam: Normal Neck: Positive: Supple, Nontender, No Lymphadenopathy Respiratory Exam: Normal Respiratory: Positive: Chest non-tender, Lungs clear, Normal breath sounds, No respiratory distress, No accessory muscle use. Negative: Crackles, Rhonchi, Stridor, Wheezing Cardiovascular Exam: Normal Cardiovascular: Positive: RRR, No Murmur, Pulses Normal Abdominal Exam: Normal Abdomen Description: Positive: Nontender, Soft Musculoskeletal Exam: Normal Neurological Exam: Normal Psychological Exam: Normal Skin Exam: Normal Respiratory Course/Dx - Differential Dx/Diagnosis Differential Diagnosis/HQI/PQRI: Asthma, Bronchitis, Laryngitis, Lower Resp Infection Provider Diagnosis: Bronchitis Discharge - Sign-Out/Discharge Documenting (check all that apply): Patient Departure All imaging exams completed and their final reports reviewed: No Studies - Discharge Plan Condition: Stable Disposition: HOME Prescriptions: Albuterol HFA INHALER* [Ventolin HFA Inhaler*] 2 puff INH Q4H PRN 14 Days #1 mdi PRN Reason: Cough Patient Education Materials: Acute Bronchitis (ED) Referrals: Yen Bills MD [Primary Care Provider] - Additional Instructions: There is no evidence for bacterial infection at this time and therefore you do not need an antibiotic. The albuterol inhaler will help your cough and you can use it as needed. We discussed potential side effects. Please follow up sooner if your symptoms worsen or develop fevers/chills. - Billing Disposition and Condition Condition: STABLE Disposition: Home
== END 2019-04-26 10:03 | disposition home or self-care (01) ==
LOC: UCCORT 09:18
DX: J40 Bronchitis, not specified as acute or chronic (principal)
CPT/HCPCS: 99212; G0463

== ENCOUNTER 2019-05-18 07:30 | Emergency (ER) | payer MEDICARE, BC ==
[2019-05-18 07:50] VITALS: BP 127/72
--- NOTE | 2019-05-18 08:22 | UC ---
Respiratory Complaint HPI - HPI Summary HPI Summary: 78-year-old female presents with 2 day history of worsening cough. Patient states that she was seen here 04/26/2019 for a cough and was prescribed an albuterol inhaler which she states did not make any improvement in her symptoms. States she has had a persistent cough since that time however during the last 2 days it has worsened and is especially bad at night when she lays down. She was diagnosed with a new onset of paroxysmal atrial fibrillation 2 days ago and placed on metoprolol and Zarelto. 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 Her symptoms are associated with some nasal congestion, runny nose, mild shortness of breath, wheezing, and occasional chills. Denies fever, ear pain, sore throat, chest pain, palpitations, diaphoresis, weakness, dizziness, nausea, or vomiting. - History of Current Complaint Chief Complaint: UCRespiratory Stated Complaint: COUGH Time Seen by Provider: 05/18/19 08:06 Hx Obtained From: Patient Pain Intensity: 0 - Allergies/Home Medications Allergies/Adverse Reactions: Allergies Allergy/AdvReac Type Severity Reaction Status Date / Time dust, animals Allergy Unknown Uncoded 05/18/19 07:45 Reaction Details Home Medications: Home Medications Metoprolol Succinate XL TAB* [Toprol XL TAB*] 25 mg PO DAILY 05/18/19 [History Confirmed 05/18/19] Rivaroxaban TAB(*) [Xarelto 20 mg] 20 mg PO DAILY 05/18/19 [History Confirmed ] PMH/Surg Hx/FS Hx/Imm Hx Cardiovascular History: Atrial Fibrillation Psychological History: Depression - Surgical History Surgical History: Yes Surgery Procedure, Year, and Place: right meniscus - Family History Known Family History: Positive: Hypertension - Social History Occupation: Retired Lives: With Family Alcohol Use: Daily Alcohol Amount: 1 wine Substance Use Type: None Smoking Status (MU): Never Smoked Tobacco Review of Systems All Other Systems Reviewed And Are Negative: Yes Constitutional: Positive: Chills. Negative: Fever, Fatigue Eyes: Negative: Drainage, Eye Redness ENT: Positive: Nasal Discharge, Sinus Congestion. Negative: Sore Throat, Ear Ache, Sinus Pain/Tenderness Respiratory: Positive: Shortness Of Breath, Cough Cardiovascular: Negative: Palpitations, Chest Pain Gastrointestinal: Negative: Abdominal Pain, Vomiting, Diarrhea, Nausea Genitourinary: Positive: Negative Musculoskeletal: Positive: Negative Neurological: Positive: Negative Is Patient Immunocompromised?: No Physical Exam - Summary Physical Exam Summary: GENERAL APPEARANCE: Well developed, well nourished, alert and cooperative, and appears to be in no acute distress. EYES: Conjunctiva clear. No drainage. EARS: External auditory canals and tympanic membranes clear, hearing grossly intact. NOSE: Mild-moderate nasal congestion. No nasal discharge. THROAT: Pharyngeal cobblestoning. No tonsilar inflammation, swelling, exudate, or lesions. Uvula midline. NECK: Neck supple, non-tender without lymphadenopathy. CARDIAC: Normal S1 and S2. No S3, S4 or murmurs. Rhythm is regular. There is no peripheral edema, cyanosis or pallor. Extremities are warm and well perfused. Capillary refill is less than 2 seconds. Peripheral pulses intact. LUNGS: Clear to auscultation without rales, rhonchi, wheezing or diminished breath sounds. Dry non-productive cough. ABDOMEN: Positive bowel sounds. Soft, nondistended, nontender. No guarding or rebound. No masses or hepatosplenomegally. MUSKULOSKELETAL: ROM intact to all extremities. No joint erythema or tenderness. Normal muscular development. Normal gait. SKIN: Skin normal color, texture and turgor with no lesions or eruptions. Triage Information Reviewed: Yes Vital Signs: Initial Vital Signs Temp 98.4 F 05/18/19 07:42 Pulse 60 05/18/19 07:42 Resp 20 05/18/19 07:42 BP 127/72 05/18/19 07:42 Pulse Ox 96 05/18/19 07:42 Vital Signs Reviewed: Yes Diagnostics - Radiology No standard instances Radiology Interpretation Completed By: Radiologist Summary of Radiographic Findings: Order Information: CHEST PA LAT 2 VWS. Accession Number: [id number]. CPT: 25068. INDICATION: Cough, shortness of breath, atrial fibrillation. COMPARISON: August 26, 2017 chest radiograph. TECHNIQUE: Dual-energy PA and lateral views of the chest were obtained. FINDINGS: The lungs are clear. There is no pleural effusion. The cardiomediastinal silhouette is within normal limits. The upper abdominal contents are normal. Osseous structures are unremarkable. IMPRESSION: NO ACUTE CARDIOPULMONARY PROCESS BY RADIOGRAPH Respiratory Course/Dx - Course Course Of Treatment: 78-year-old female presents with 2 day history of worsening cough. Patient states that she was seen here 04/26/2019 for a cough and was prescribed an albuterol inhaler which she states did not make any improvement in her symptoms. States she has had a persistent cough since that time however during the last 2 days it has worsened and is especially bad at night when she lays down. She was diagnosed with a new onset of paroxysmal atrial fibrillation 2 days ago and placed on metoprolol and Zarelto. 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 Her symptoms are associated with some nasal congestion, runny nose, mild shortness of breath, wheezing, and occasional chills. Denies fever, ear pain, sore throat, chest pain, palpitations, diaphoresis, weakness, dizziness, nausea, or vomiting. Afebrile. Vital signs stable. Patient had some mild to moderate nasal congestion, pharyngeal cobblestoning, clear bilateral breath sounds, dry nonproductive cough, and otherwise unremarkable exam. Two-view chest x-ray showed no acute cardiopulmonary pathology. Results reviewed with the patient. We discussed that I suspect her symptoms are likely from some postnasal drip although with her recent diagnosis of atrial fibrillation I cannot fully rule out some mild erythema. With her lack of fever and overall well appearance I do not think antibiotics are warranted at this time. Recommending symptomatic treatment for postnasal drip with cough including continued use of her fluticasone nasal spray , saline rinses, and Tessalon Perles 1 capsule every 8 hours as needed for cough. She is to follow-up with her primary care provider in 3 days if symptoms are not improving. She is to also keep her appointment with her deputy harbormaster on 05/21/2019 as scheduled. Anticipatory guidance and warning symptoms were reviewed with the patient. Verbalizes understanding and agrees with plan of care. - Differential Dx/Diagnosis Differential Diagnosis/HQI/PQRI: Bronchitis, Pulmonary Edema, Lower Resp Infection, Sinusitis Provider Diagnosis: Cough, Postnasal drip Discharge - Sign-Out/Discharge Documenting (check all that apply): Patient Departure All imaging exams completed and their final reports reviewed: Yes - Discharge Plan Condition: Stable Disposition: HOME Prescriptions: Benzonatate CAP* [Tessalon 100 MG CAP*] 100 mg PO TID PRN #[id number] cap PRN Reason: Cough Patient Education Materials: Acute Cough (ED), Postnasal Drip (DC) Referrals: Yen Bills MD [Primary Care Provider] - 3 Days Additional Instructions: The chest x-ray performed in the clinic today was normal. I suspect that your cough is related to some postnasal drip. Continue using your fluticasone nasal spray as directed. I would recommend using a a saline rinse kit such as Neti Pot or NeilMed at least twice a day. Take Tessalon Perles 1 capsule every 8 hours as needed for cough. Follow-up with her primary care provider in 3 days if symptoms are not improving. Be sure to keep your appointment with your deputy harbormaster on as scheduled. Seek immediate medical attention in the emergency room if he develops a fever greater than 100.5 F, have chest pain, feeling like her heart is racing or skipping beats, have worsening shortness of breath, become weak or dizzy, or have any worsening of symptoms. - Billing Disposition and Condition Condition: STABLE Disposition: Home
== END 2019-05-18 09:28 | disposition home or self-care (01) ==
LOC: UCCORT 07:30
DX: R05 Cough (principal); R09.82 Postnasal drip; I48.91 Unspecified atrial fibrillation
CPT/HCPCS: 71046; 99212; G0463

== ENCOUNTER 2019-07-05 10:33 | Emergency (ER) | payer MEDICARE, BC ==
--- OUTSIDE RECORDS SUMMARY | 2019-07-05 10:42 | XMS REPORT | Continuity of Care Document ---
:1940 External Reference #:[id number] Author Name Yen Bills M.D. 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 Onset: 02/27/2011 congestive heart failure Seizure Yen Bills M.D. Onset: 02/27/2011 Vertigo Dizziness Yen Bills M.D. Onset: 04/07/2014 Social History Type Date Description Comments Sex Unknown Tobacco Use Start: Unknown Never Smoked Cigarettes [...] bid Yen Bills, 08/14/2005 600mg M.D. Tablets Immunizations CPT Code Status Date Vaccine Lot # [id number] Given 07/15/2018 Influenza Virus (Afluria) Split Virus 3 Years Of Age And Older Q2035 Given 07/10/2017 Influenza Virus (Afluria) Split Virus 3 Years [id number] Of Age And Older Q2037 Given 06/26/2016 Influenza Vaccine (Fluvirin) 3 Years Of Age Or [id number] Older Q2036 Given 07/23/2013 Flulaval Q2036 Given 07/23/2013 Flulaval [id number] Q2037 Given 07/16/2012 Influenza Vaccine (Fluvirin) 3 Years Of Age Or Older Q2037 Given 07/16/2012 Influenza Vaccine (Fluvirin) 3 Years Of Age Or [id number] Older Q2036 Given 07/12/2011 Flulaval 50742 Given 06/21/2010 Influenza Vaccine [id number] 29952 Given 02/17/2010 Pneumovax Polyvalent Inj Im [id number] 62228 Given 07/01/2009 Tetanus,Diphtheria,Adut/Adol Pertussis 5433 09033 Given 07/01/2009 Influenza Vaccine [id number] 18557 Given 07/14/2008 Influenza Vaccine 05190 32229 Given 08/02/2007 Influenza Vaccine [id number] 88679 Given 09/27/2006 Influenza Vaccine [id number] 30324 Given 09/14/2005 Influenza Vaccine [id number] 59323 Given 09/14/2000 Pneumovax Polyvalent Inj Im Vital Signs Date Vital Result Comment 05/21/2019 11:45am BP Systolic 116 mmHg BP Diastolic 72 mmHg Heart Rate 50 /min Body Temperature 99.1 F Height 61 inches 5'1" Weight 141.00 lb BMI (Body Mass Index) 26.6 kg/m2 O2 % BldC Oximetry 92 % 04/15/2019 11:56am BP Systolic 140 mmHg BP Diastolic 80 mmHg Heart Rate 66 /min Height 61 inches 5'1" Weight 141.00 lb BMI (Body Mass Index) 26.6 kg/m2 Results Description No Information Available Procedures Date Code Description Status 05/04/2014 02105826 Mammogram Completed 05/22/2013 926228569 Bone Mineral Density Test Completed 07/18/2011 20026418 Colonoscopy Completed Medical Devices Description No Information Available Encounters Type Date Location Provider Dx Diagnosis Office Visit 04/15/2019 Main Office Yen Bills M.D. R00.0 Tachycardia, 11:45a unspecified F40.240 Claustrophobia Office Visit 02/27/2019 12:00p Main Office Yen Bills R00.0 Tachycardia, M.DDonaldo unspecified Office Visit 02/18/2019 11:15a Main Office Yen Bills E78.2 Mixed hyperlipidemia Oswaldo R56.9 Unspecified convulsions Assessments Date Code Description Provider 05/21/2019 I48.0 Paroxysmal atrial fibrillation Yen Bills M.D. 05/21/2019 R05 Cough Yen Bills M.D. 05/21/2019 J45.21 Mild intermittent asthma with (acute) Yen Bills M.D. exacerbation 04/15/2019 R00.0 Tachycardia, unspecified Yen Bills M.D. 04/15/2019 F40.240 Claustrophobia Yen Bills M.D. 02/27/2019 R00.0 Tachycardia, unspecified Yen Bills M.D. 02/18/2019 E78.2 Mixed hyperlipidemia Yen Bills M.D. 02/18/2019 R56.9 Unspecified convulsions Yen Bills M.D. Plan of Treatment Future Appointment(s):05/26/2019 2:00 pm - Yen Bills M.D. at Main [id number] 8:00 am - Nurse at Main Htitek2307/14/2019 1:45 pm - Yen Bills M.D. at Main Exnjfs8305/21/2019 - Yen Bills M.D.I48.0 Paroxysmal atrial fibrillationComments:recent addition of metoprolol and [id number] CoughComments: suspect secondary to beta jace use, will contact [place] [facility] to inform him of my suspicionsFollow up:Followup:. (Follow up)J45.21 Mild intermittent asthma with (acute) exacerbationComments:continue inhaler for now, see note above Functional Status Description No Information Available Mental Status Description No Information Available Referrals Refer to Reason for Referral Status Appt Date Sonu Oreilly MD TACHYCARDIA WITH FATIGUE AND NAUSEA. Closed 04/04/[address] [facility] [id number] [address] [facility] [address] [phone]
--- OUTSIDE RECORDS SUMMARY | 2019-07-05 10:42 | XMS REPORT | Continuity of Care Document ---
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 Provider Date Palpitations Sonu Oreilly M.D., [facility], [facility] Onset: 04/04/2019 Difficulty breathing Sonu Oreilly M.D., [facility], [facility] Onset: 04/04/2019 Social History Type Date Description Comments Sex Unknown ETOH Use Currently consumes Glass of wine at alcohol nitght Tobacco Use Start: Unknown Patient has never smoked Recreational Drug Use Denies Drug Use Smoking Status Reviewed: 05/21/19 Patient has never smoked Exercise Type/Frequency Exercises regularly golf weekly,mows lawn and walks the dog Allergies, Adverse Reactions, Alerts Active Allergies Reaction Severity Comments Date Dilantin 04/04/2019 Medications Active Medications SIG Qnty Indications Ordering Date Provider Xarelto 1 by mouth every 90tabs Sonu Villar 05/15/2019 20mg Tablets day Oswaldo Oreilly, [facility] Metoprolol Succinate 1 by mouth every 90tabs Sonu Villar 05/15/2019 ER day Oswaldo Oreilly, 25mg Tablets ER 24HR [facility] Dicyclomine HCL 1 capsule by Unknown 10mg mouth three times Capsules daily as needed Phenobarbital 1 tab by mouth at Unknown 97.2mg bedtime Tablets Flonase Allergy Relief 1 puff each Unknown nostril daily 50mcg/Act Suspension Prozac 2 capsules by Unknown 20mg Capsules mouth every day Crestor 1 by mouth every Unknown 10mg Tablets day Calcium 600+D High 1 by mouth daily Unknown Potency [id number] Tablets Aspirin Adult take one tab by Unknown 325mg mouth daily Tablets Albuterol Sulfate HFA one to two puffs Unknown every 6 hours as 108(90Base) mcg/Act needed Aerosol Medications Administered in Office Medication SIG Qnty Indications Ordering Provider Date Inj, Regadenoson, 0.1 MG Sonu Oreilly M.D., 04/29/2019 Injection FACC, FASNC Technetium TC 99M Sonu Oreilly M.D., 04/29/2019 Tetrofosmin, Per Unit Dose DAYTONC, LIVIA Up To 40 Millicuries Injection Technetium TC 99M Sonu Oreilly M.D., 04/29/2019 Tetrofosmin, Per Unit Dose FACC, FASNC Up To 40 Millicuries Injection Immunizations Description No Information Available Vital Signs Date Vital Result Comment 05/21/2019 1:45pm Height 63 inches 5'3" Weight 141.00 lb BP Systolic Sitting 122 mmHg BP Diastolic Sitting 72 mmHg BP Systolic Standing 128 mmHg BP Diastolic Standing 72 mmHg BMI (Body Mass Index) 25.0 kg/m2 Ejection Fraction 60-65% 04/04/2019 1:03pm Height 63 inches 5'3" Weight [...] % BMI (Body Mass Index) 25.2 kg/m2 Results Test Date Facility Test Result H/L Range Note Basic Metabolic 04/14/2019 [facility] Sodium 141 mmol/L Normal 135-[address] [place] [address] [phone] Potassium 4.3 mmol/L Normal 3.5-5.0 Chloride 106 mmol/L Normal 101-111 Co2 Carbon Dioxide 30 mmol/L Normal 22-32 Anion Gap 5 mmol/L Normal 2-11 Glucose 100 mg/dL Normal 70-100 Blood Urea Nitrogen 14 mg/dL Normal 6-24 Creatinine 0.70 mg/dL Normal 0.51-0.95 BUN/Creatinine Ratio 20.0 Normal 8-20 Calcium 9.6 mg/dL Normal 8.6-10.3 Egfr Non- 80.5 >60 Egfr 97.4 >60 1 Laboratory test 04/14/2019 [facility] Magnesium 2.2 mg/dL Normal 1.9-2.[address] [place] [address] [phone] TSH (Thyroid Stim Horm) 2.32 mcIU/mL Normal 0.34-5.60 CBC Auto 04/14/2019 [facility] White Blood 7.9 10^3/uL Normal 3.5-10.[address] [place] [address] [phone] Red Blood Count 4.51 10^6/uL Normal 3.70-4.87 Hemoglobin 13.9 g/dL Normal 12.0-16.0 Hematocrit 41 % Normal 35-47 Mean Corpuscular Volume 92 fL Normal 80-97 Mean Corpuscular Hemoglobin 31 pg Normal 27-31 Mean Corpuscular HGB Conc 34 g/dL Normal 31-36 Red Cell Distribution Width 13 % Normal 10-15 Platelet Count 283 10^3/uL Normal 150-450 Mean Platelet Volume 8.6 fL Normal 7.4-10.4 Abs Neutrophils 4.1 10^3/uL Normal 1.5-7.7 Abs Lymphocytes 2.5 10^3/uL Normal 1.0-4.8 Abs Monocytes 1.0 10^3/uL High 0-0.8 Abs Eosinophils 0.2 10^3/uL Normal 0-0.6 Abs Basophils 0.1 10^3/uL Normal 0-0.2 Abs Nucleated RBC 0.0 10^3/uL Granulocyte % 51.6 % Lymphocyte % 31.2 % Monocyte % 13.0 % Eosinophil % 3.0 % Basophil % 1.2 % Nucleated Red Blood Cells % 0.1 1 Because ethnic data is not always readily available, this report includes an eGFR for both -Americans and non- Americans. The National Kidney Disease Education Program (NKDEP) does not endorse the use of the MDRD equation for patients that are not between the ages of 18 and 70, are , have extremes of body size, muscle mass, or nutritional status, or are non- or non-. According to the National Kidney Foundation, irrespective of diagnosis, the stage of the disease is based on the level of kidney function: Stage Description GFR(mL/min/1.73 m(2)) 1 Kidney damage with normal or decreased GFR 90 2 Kidney damage with mild decrease in GFR 60-89 3 Moderate decrease in GFR 30-59 4 Severe decrease in GFR 15-29 5 Kidney failure <15 (or dialysis) Procedures Date Code Description Status 04/29/2019 50213 Stress Test Completed 04/29/2019 82495 Myocardial Perfusion Imaging Tomographic (Spect) Multiple Completed Studies 04/28/2019 47120 ECHO Transthoracic, Real-Time 2D With Doppler And Color Completed Flow 04/04/2019 23804 EKG Tracing & Interpretation Completed Medical Devices Description No Information Available Encounters Type Date Location Provider Dx Diagnosis Office Visit 05/21/2019 [facility] Sonu Oreilly, R00.2 Palpitations 2:00p Raad Chacon, [facility], [facility] I48.0 Paroxysmal atrial fibrillation R05 Cough Office Visit 04/04/2019 1:30p [facility] Sonu Villar R00.2 Palpitations Of [facility] [place] [facility] R06.00 Dyspnea, unspecified R94.31 Abnormal electrocardiogram [ECG] [EKG] Assessments Date Code Description Provider 05/21/2019 R00.2 Palpitations Sonu Oreilly M.D., [facility], [facility] 05/21/2019 I48.0 Paroxysmal atrial fibrillation Sonu Oreilly M.D., [facility] , [facility] 05/21/2019 R05 Cough [facility] 04/29/2019 R06.00 Dyspnea, unspecified Sonu Oreilly M.D., [facility], [facility] 04/28/2019 R06.00 Dyspnea, unspecified Sonu Oreilly M.D., [facility], [facility] 04/28/2019 R06.00 Dyspnea, unspecified Traveling ECHO 2 04/04/2019 R00.2 Palpitations Sonu Oreilly M.D., [facility], [facility] 04/04/2019 R06.00 Dyspnea, unspecified Sonu Oreilly M.D., [facility], [facility] 04/04/2019 R94.31 Abnormal electrocardiogram [ECG] [EKG] Sonu Oreilly M.D., [facility] Plan of Treatment Future Appointment(s):07/30/2019 10:15 am - Sonu Oreilly M.D., [facility] at [facility]06/25/2019 9:10 am - Raul Thomas MD at [facility] AT Gckmrsai39/07/2019 - Sonu Oreilly M.D., KACIE, PHHUWT95.2 PalpitationsComments:As discussed, your heart function is normal and there are no heart artery blockages noted. I do not feel Metoprolol is causing your cough so please continue the Metoprolol. Stop aspirin. Take Tylenol as needed.Follow up:in 3 jedtriO85.0 Paroxysmal atrial [id number] Cough Functional Status Description No Information Available Mental Status Description No Information Available Referrals Description No Information Available
--- OUTSIDE RECORDS SUMMARY | 2019-07-05 10:42 | XMS REPORT | Continuity of Care Document ---
:1940 External Reference #:[id number] Author Name Yen Bills M.D. 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 Tablets 5 Cheratussin ac 5 milliliters every 118ml J16.8 Yen Bills, 05/28/2019 6 hours as needed M.D. 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 25mg Tablets ER 24HR Diazepam 1 by mouth 45 2tabs F40.240 Yen Bills, 04/15/2019 10mg Tablets minutes before M.D. testing Dicyclomine HCL 1 by mouth three 90caps Yen Bills, 05/20/2018 10mg times a day M.D. Capsules Phenobarbital 1 by mouth at 90tabs Yen Bills, 05/10/2017 97.2mg bedtime for M.D. Tablets seizures code c Flonase Allergy 1 spray to each 6units Yen Antoninodalia, 06/22/2015 Relief nare every day M.D. 50mcg/Act Suspension Prozac 2 by mouth every 60caps Yen Bills, 09/17/2007 20mg Capsules day M.D. Crestor 1 by mouth every 30tabs Yen Antoninodalia, 09/06/2005 10mg Tablets day M.D. Calcium With D 1 po bid Yen Bills, 08/14/2005 600mg M.D. Tablets Immunizations CPT Code Status Date Vaccine Lot # [id number] Given 07/15/2018 Influenza Virus (Afluria) Split Virus 3 Years Of Age And Older Q2035 Given 07/10/2017 Influenza Virus (Afluria) Split Virus 3 Years [id number] Of Age And Older Q2037 Given 06/26/2016 Influenza Vaccine (Fluvirin) 3 Years Of Age Or [id number] Older Q2036 Given 07/23/2013 Flulaval Q2036 Given 07/23/2013 Flulaval [id number] Q2037 Given 07/16/2012 Influenza Vaccine (Fluvirin) 3 Years Of Age Or Older Q2037 Given 07/16/2012 Influenza Vaccine (Fluvirin) 3 Years Of Age Or [id number] Older Q2036 Given 07/12/2011 Flulaval 39617 Given 06/21/2010 Influenza Vaccine [id number] 63329 Given 02/17/2010 Pneumovax Polyvalent Inj Im [id number] 15895 Given 07/01/2009 Tetanus,Diphtheria,Adut/Adol Pertussis 5433 58495 Given 07/01/2009 Influenza Vaccine [id number] 70814 Given 07/14/2008 Influenza Vaccine 94106 90669 Given 08/02/2007 Influenza Vaccine [id number] 06031 Given 09/27/2006 Influenza Vaccine 16726 61997 Given 09/14/2005 Influenza Vaccine [id number] 53045 Given 09/14/2000 Pneumovax Polyvalent Inj Im Vital Signs Date Vital Result Comment 06/04/2019 2:53pm BP Systolic 110 mmHg BP Diastolic 60 mmHg Heart Rate 60 /min Height 61 inches 5'1" Weight 140.00 lb BMI (Body Mass Index) 26.4 kg/m2 05/28/2019 11:13am BP Systolic 122 mmHg BP Diastolic 72 mmHg Heart Rate 58 /min Body Temperature 98.9 F Height 61 inches 5'1" Weight 141.00 lb BMI (Body Mass Index) 26.6 kg/m2 O2 % BldC Oximetry 96 % Results Description No Information Available Procedures Date Code Description Status 05/04/2014 88560194 Mammogram Completed 05/22/2013 741299032 Bone Mineral Density Test Completed 07/18/2011 [id number] Colonoscopy Completed Medical Devices Description No Information Available Encounters Type Date Location Provider Dx Diagnosis Office Visit 05/28/2019 11:15a Main Office Yen Bills M.D. R05 Cough J16.8 Pneumonia due to other specified infectious organisms I48.0 Paroxysmal atrial fibrillation Office Visit 05/21/2019 11:45a Main Office Yen Bills I48.0 Paroxysmal atrial M.D. fibrillation R05 Cough J45.21 Mild intermittent asthma with (acute) exacerbation Office Visit 04/15/2019 11:45a Main Office Yen Bills R00.0 Tachycardia, M.D. unspecified F40.240 Claustrophobia Office Visit 02/27/2019 12:00p Main Office Yen Bills R00.0 Tachycardia, M.D. unspecified Office Visit 02/18/2019 11:15a Main Office Yen Bills E78.2 Mixed hyperlipidemia M.D. R56.9 Unspecified convulsions Assessments Date Code Description Provider 06/04/2019 R05 Cough Yen Bills M.D. 06/04/2019 E78.2 Mixed hyperlipidemia Yen Bills M.D. 06/04/2019 R56.9 Unspecified convulsions Yen Bills M.D. 05/28/2019 R05 Cough Yen Bills M.D. 05/28/2019 J16.8 Pneumonia due to other specified infectious Yen Bills M.D. organisms 05/28/2019 I48.0 Paroxysmal atrial fibrillation Yen Bills M.D. 05/21/2019 I48.0 Paroxysmal atrial fibrillation Yen Bills M.D. 05/21/2019 R05 Cough Yen Bills M.D. 05/21/2019 J45.21 Mild intermittent asthma with (acute) Yen Bills M.D. exacerbation 04/15/2019 R00.0 Tachycardia, unspecified Yen Bills M.D. 04/15/2019 F40.240 Claustrophobia Yen Bills M.D. 02/27/2019 R00.0 Tachycardia, unspecified Yen Bills M.D. 02/18/2019 E78.2 Mixed hyperlipidemia Yen Bills M.D. 02/18/2019 R56.9 Unspecified convulsions Yen Bills M.D. Plan of Treatment Future Appointment(s):07/04/2019 8:00 am - Nurse at Main Bhhtiw2607/14/2019 1: 45 pm - Yen Bills M.D. at Main Bdsmjz7106/04/2019 - Yen Bills M.D.R05 CoughComments:discussed pneumonia vaccine will update at next visitFollow up: Followup:. (Follow up)E78.2 Mixed hyperlipidemiaComments:continue diet and qtznscqnD22.9 Unspecified convulsionsComments:continue meds check levels neurology follow up when needed Functional Status Description No Information Available Mental Status Description No Information Available Referrals Refer to Reason for Referral Status Appt Date Sonu Oreilly MD TACHYCARDIA WITH FATIGUE AND NAUSEA. Closed 04/04/[address] [facility] [address] [address] [place] [facility] [address] [phone]
--- OUTSIDE RECORDS SUMMARY | 2019-07-05 10:42 | XMS REPORT | Continuity of Care Document ---
:1940 External Reference #:[id number] Author Name Yen Bills M.D. 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 Problems Provider Date Hyperlipidemia Yen [...] Influenza Virus (Afluria) Split Virus 3 Years [id number] Of Age And Older Q2037 Given 06/26/2016 Influenza Vaccine (Fluvirin) 3 Years Of Age Or [id number] Older Q2036 Given 07/23/2013 Flulaval Q2036 Given 07/23/2013 Flulaval [id number] Q2037 Given 07/16/2012 Influenza Vaccine (Fluvirin) 3 Years Of Age Or Older Q2037 Given 07/16/2012 Influenza Vaccine (Fluvirin) 3 Years Of Age Or [id number] Older Q2036 Given 07/12/2011 Flulaval 92925 Given 06/21/2010 Influenza Vaccine [id number] 60496 Given 02/17/2010 Pneumovax Polyvalent Inj Im [id number] 93663 Given 07/01/2009 Tetanus,Diphtheria,Adut/Adol Pertussis 5433 54950 Given 07/01/2009 Influenza Vaccine [id number] 93440 Given 07/14/2008 Influenza Vaccine 48407 91513 Given 08/02/2007 Influenza Vaccine [id number] 79978 Given 09/27/2006 Influenza Vaccine 16360 63062 Given 09/14/2005 Influenza Vaccine [id number] 20039 Given 09/14/2000 Pneumovax Polyvalent Inj Im Vital [...] Available Procedures Date Code Description Status 05/04/2014 [id number] Mammogram Completed 05/22/2013 330022200 Bone Mineral Density Test Completed 07/18/2011 79235821 Colonoscopy Completed Medical Devices Description No Information Available Encounters Type Date Location Provider Dx Diagnosis Office Visit 04/15/2019 Main Office Yen Bills M.D. R00.0 Tachycardia, 11:45a unspecified F40.240 Claustrophobia Office Visit 02/27/2019 12:00p Main Office Yen Bills, R00.0 Tachycardia, M.DDonaldo unspecified Office Visit 02/18/2019 11:15a Main Office Yen Bills E78.2 Mixed hyperlipidemia Gabriella.DDonaldo R56.9 Unspecified convulsions Assessments Date Code Description Provider 04/15/2019 R00.0 Tachycardia, unspecified Yen Bills M.D. 04/15/2019 F40.240 Claustrophobia Yen Bills M.D. 02/27/2019 R00.0 Tachycardia, unspecified Yen Bills M.D. 02/18/2019 E78.2 Mixed hyperlipidemia Yen Bills M.D. 02/18/2019 R56.9 Unspecified convulsions Yen Bills M.D. Plan of Treatment Future Appointment(s):05/26/2019 2:00 pm - Yen Bills M.D. at Main [id number] 8:00 am - Nurse at Main Bhcjaj1507/14/2019 1:45 pm - Yen Bills M.D. at Main Office Functional Status Description No Information Available Mental Status Description No Information Available Referrals Refer to Dr Reason for Referral Status Appt Date Sonu Oreilly MD TACHYCARDIA WITH FATIGUE AND NAUSEA. Closed 04/04/2019 [address] [facility] [address] [address] [place] [facility] [address] [phone]
--- OUTSIDE RECORDS SUMMARY | 2019-07-05 10:42 | XMS REPORT | Continuity of Care Document ---
:1940 External Reference #:[id number] Author Name Yen Bills M.D. 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 Crestor 1 by mouth every 30tabs Yen Gadalia, 09/06/2005 10mg Tablets day M.D. Calcium With D 1 po bid Yen Bills, 08/14/2005 600mg M.D. Tablets Immunizations CPT Code Status Date Vaccine Lot # [id number] Given 07/15/2018 Influenza Virus (Afluria) Split Virus 3 Years Of Age And Older Q2035 Given 07/10/2017 Influenza Virus (Afluria) Split Virus 3 Years [id number] Of Age And Older Q2037 Given 06/26/2016 Influenza Vaccine (Fluvirin) 3 Years Of Age Or [id number] Older Q2036 Given 07/23/2013 Flulaval Q2036 Given 07/23/2013 Flulaval [id number] Q2037 Given 07/16/2012 Influenza Vaccine (Fluvirin) 3 Years Of Age Or Older Q2037 Given 07/16/2012 Influenza Vaccine (Fluvirin) 3 Years Of Age Or [id number] Older Q2036 Given 07/12/2011 Flulaval 60637 Given 06/21/2010 Influenza Vaccine [id number] 39974 Given 02/17/2010 Pneumovax Polyvalent Inj Im [id number] 57923 Given 07/01/2009 Tetanus,Diphtheria,Adut/Adol Pertussis 5433 36228 Given 07/01/2009 Influenza Vaccine [id number] 55846 Given 07/14/2008 Influenza Vaccine [id number] 97807 Given 08/02/2007 Influenza Vaccine [id number] 00454 Given 09/27/2006 Influenza Vaccine 33860 20005 Given 09/14/2005 Influenza Vaccine [id number] 13925 Given 09/14/2000 Pneumovax Polyvalent Inj Im Vital [...] Available Procedures Date Code Description Status 05/04/2014 [id number] Mammogram Completed 05/22/2013 162145303 Bone Mineral Density Test Completed 07/18/2011 24291131 Colonoscopy Completed Medical Devices Description No Information [...] Office Visit 02/18/2019 11:15a Main Office Yen Bills, E78.2 Mixed hyperlipidemia M.D. R56.9 Unspecified convulsions Assessments Date Code Description Provider 05/28/2019 R05 Cough Yen Bills M.D. 05/28/2019 [...] Appointment(s):07/04/2019 8:00 am - Nurse at Main Bbzoel6707/14/2019 1: 45 pm - Yen Bills M.D. at Main Office Functional Status Description No Information Available Mental Status Description No Information Available Referrals Refer to Reason for Referral Status Appt Date Sonu Oreilly MD TACHYCARDIA WITH FATIGUE AND NAUSEA. Closed 04/04/[address] [facility] [address] [address] [place] [facility] [address] [phone]
--- OUTSIDE RECORDS SUMMARY | 2019-07-05 10:42 | XMS REPORT | Continuity of Care Document ---
:1940 External Reference #:[id number] Author Name Yen Bills M.D. 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 Problems Active Problems Provider Date Hyperlipidemia Yen [...] Influenza Virus (Afluria) Split Virus 3 Years [id number] Of Age And Older Q2037 Given 06/26/2016 Influenza Vaccine (Fluvirin) 3 Years Of Age Or [id number] Older Q2036 Given 07/23/2013 Flulaval Q2036 Given 07/23/2013 Flulaval [id number] Q2037 Given 07/16/2012 Influenza Vaccine (Fluvirin) 3 Years Of Age Or Older Q2037 Given 07/16/2012 Influenza Vaccine (Fluvirin) 3 Years Of Age Or [id number] Older Q2036 Given 07/12/2011 Flulaval 82531 Given 06/21/2010 Influenza Vaccine [id number] 69541 Given 02/17/2010 Pneumovax Polyvalent Inj Im [id number] 28097 Given 07/01/2009 Tetanus,Diphtheria,Adut/Adol Pertussis 5433 58395 Given 07/01/2009 Influenza Vaccine [id number] 01004 Given 07/14/2008 Influenza Vaccine 94230 78292 Given 08/02/2007 Influenza Vaccine [id number] 03822 Given 09/27/2006 Influenza Vaccine 90486 60760 Given 09/14/2005 Influenza Vaccine [id number] 80033 Given 09/14/2000 Pneumovax Polyvalent Inj Im Vital Signs Date Vital Result Comment 05/28/2019 11:13am BP Systolic 122 mmHg BP Diastolic 72 mmHg Heart Rate 58 /min Body Temperature 98.9 F Height 61 inches 5'1" Weight 141.00 lb BMI (Body Mass Index) 26.6 kg/m2 O2 % BldC Oximetry 96 % 05/21/2019 11:45am BP Systolic 116 mmHg BP Diastolic 72 mmHg Heart Rate 50 /min Body Temperature 99.1 F Height 61 inches 5'1" Weight 141.00 lb BMI (Body Mass Index) 26.6 kg/m2 O2 % BldC Oximetry 92 % Results Description No Information Available Procedures Date Code Description Status 05/04/2014 15605660 Mammogram Completed 05/22/2013 235961328 Bone Mineral Density Test Completed 07/18/2011 64288918 Colonoscopy Completed Medical Devices Description No Information Available Encounters Type Date Location Provider Dx Diagnosis Office Visit 05/21/2019 Main Office Yen Bills M.D. I48.0 Paroxysmal atrial 11:45a fibrillation R05 Cough J45.21 Mild intermittent asthma with (acute) exacerbation Office Visit 04/15/2019 11:45a Main Office Yen Bills R00.0 Tachycardia, M.DDonaldo unspecified F40.240 Claustrophobia Office Visit 02/27/2019 12:00p Main Office Yen Bilsl R00.0 Tachycardia M.DDonaldo unspecified Office Visit 02/18/2019 11:15a Main [...] Appointment(s):07/04/2019 8:00 am - Nurse at Main Cdysci7707/14/2019 1: 45 pm - Yen Bills M.D. at Main Office Functional Status Description No Information Available Mental Status Description No Information Available Referrals Refer to Dr Reason for Referral Status Appt Date Sonu Oreilly MD TACHYCARDIA WITH FATIGUE AND NAUSEA. Closed 04/04/2019 [address] [facility] [address] [address] [place] [facility] [address] [phone]
--- OUTSIDE RECORDS SUMMARY | 2019-07-05 10:42 | XMS REPORT | Continuity of Care Document ---
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 Capsules Phenobarbital 1 by mouth at 90tabs Yen Muñizdalia, 05/10/2017 97.2mg bedtime for M.D. Tablets seizures code c Flonase Allergy 1 spray to each 6units Yennicolas Bills, 06/22/2015 Relief nare every day M.D. 50mcg/Act [...] Influenza Virus (Afluria) Split Virus 3 Years [id number] Of Age And Older Q2037 Given 06/26/2016 Influenza Vaccine (Fluvirin) 3 Years Of Age Or 8150556 Older Q2036 Given 07/23/2013 Flulaval Q2036 Given 07/23/2013 Flulaval [id number] Q2037 Given 07/16/2012 Influenza Vaccine (Fluvirin) 3 Years Of Age Or Older Q2037 Given 07/16/2012 Influenza Vaccine (Fluvirin) 3 Years Of Age Or [id number] Older Q2036 Given 07/12/2011 Flulaval 55540 Given 06/21/2010 Influenza Vaccine [id number] 17993 Given 02/17/2010 Pneumovax Polyvalent Inj Im [id number] 79921 Given 07/01/2009 Tetanus,Diphtheria,Adut/Adol Pertussis 5433 28387 Given 07/01/2009 Influenza Vaccine [id number] 59081 Given 07/14/2008 Influenza Vaccine 12740 81088 Given 08/02/2007 Influenza Vaccine [id number] 17553 Given 09/27/2006 Influenza Vaccine 06251 69335 Given 09/14/2005 Influenza Vaccine [id number] 56968 Given 09/14/2000 Pneumovax Polyvalent Inj Im Vital [...] Available Procedures Date Code Description Status 05/04/2014 05580466 Mammogram Completed 05/22/2013 186619768 Bone Mineral Density Test Completed 07/18/2011 31886536 Colonoscopy Completed Medical Devices Description No Information [...] Assessments Date Code Description Provider 05/28/2019 R05 Lacey Bills M.D. 05/28/2019 J16.8 Pneumonia due to other specified infectious Yen Bills M.D. organisms 05/28/2019 I48.0 Paroxysmal atrial fibrillation Yen Bills M.D. 05/21/2019 I48.0 Paroxysmal atrial fibrillation Yen Bills M.D. 05/21/2019 R05 Lacey Bills M.D. 05/21/2019 J45.21 Mild intermittent asthma with (acute) Yen Bills M.D. exacerbation 04/15/2019 R00.0 Tachycardia, unspecified Yen Bills M.D. 04/15/2019 F40.240 Claustrophobia Yen Bills M.D. 02/27/2019 R00.0 Tachycardia, unspecified Yen Bills M.D. 02/18/2019 E78.2 Mixed hyperlipidemia Yen Bills M.D. 02/18/2019 R56.9 Unspecified convulsions Yen Bills M.D. Plan of Treatment Future Appointment(s):06/04/2019 11:15 am - Yen Bills M.D. at Main Tbsfme42 8:00 am - Nurse at Main Teqfeb8007/14/2019 1:45 pm - Yen Bills M.D. at Main Gkczue1405/28/2019 - Yen Bills M.D.R05 CoughFollow up:Followup:. ( Follow up)J16.8 Pneumonia due to other specified infectious organismsNew Medication:Azithromycin 250 mg - 2 by mouth today, 1 by mouth day 2 thru 5Cheratussin ac 100-10 mg/5ML - 5 milliliters every 6 hours as needed coughComments:re order azithromycin, not clear if she's actually taken any and kept down, obtain follow up PA and lateral film and pft's revisit next weekI48.0 Paroxysmal atrial fibrillationNew Medication:Xarelto 20 mg - 1 by mouth every dayMetoprolol Succinate ER 25 mg - 1 by mouth every evening mdd 1 Functional Status Description No Information Available Mental Status Description No Information Available Referrals Refer to Dr Reason for Referral Status Appt Date Sonu Oreilly MD TACHYCARDIA WITH FATIGUE AND NAUSEA. Closed 04/04/[address] [facility] [address] [place] [facility] [phone]
[2019-07-05 10:57] VITALS: BP 139/87
--- NOTE | 2019-07-05 11:15 | UC ---
Skin Complaint HPI - HPI Summary HPI Summary: 78-year-old woman comes in with a chief complaint of a painful rash on her right side of her chest and her upper abdomen. Patient tells me the rash showed up yesterday is quite painful 10 out of 10 overnight. Starts in the lower thoracic and wraps around the right side into her upper abdomen. Now she does not have any pain. No fevers no chills. Feels well otherwise. Is not immunocompromised not on any immunosuppressants. - History of Current Complaint Chief Complaint: UCRash Time Seen by Provider: 07/05/19 11:04 Stated Complaint: RASH (? SHINGLES) Pain Intensity: 0 - Allergy/Home Medications Allergies/Adverse Reactions: Allergies Allergy/AdvReac Type Severity Reaction Status Date / Time dust, animals Allergy Unknown Uncoded 07/05/19 10:43 Reaction Details PMH/Surg Hx/FS Hx/Imm Hx Previously Healthy: Yes Neurological History: Seizures - Surgical History Surgical History: Yes Surgery Procedure, Year, and Place: right meniscus - Family History Known Family History: Positive: Hypertension - Social History Alcohol Use: Daily Alcohol Amount: 1 wine Substance Use Type: None Smoking Status (MU): Never Smoked Tobacco Review of Systems All Other Systems Reviewed And Are Negative: Yes Constitutional: Positive: Negative Skin: Positive: Rash Eyes: Positive: Negative ENT: Positive: Negative Respiratory: Positive: Negative Cardiovascular: Positive: Negative Gastrointestinal: Positive: Negative Motor: Positive: Negative Neurovascular: Positive: Negative Musculoskeletal: Positive: Negative Neurological: Positive: Negative Psychological: Positive: Negative Is Patient Immunocompromised?: No Physical Exam Triage Information Reviewed: Yes Appearance: Well-Appearing, No Pain Distress, Well-Nourished Vital Signs: Initial Vital Signs Temp 99 F 07/05/19 10:47 Pulse 69 07/05/19 10:47 Resp 18 07/05/19 10:47 BP 139/87 07/05/19 10:47 Pulse Ox 98 07/05/19 10:47 Vital Signs Reviewed: Yes Eye Exam: Normal Eyes: Positive: Conjunctiva Clear Neck: Positive: Supple Respiratory: Positive: No respiratory distress Musculoskeletal: Positive: Strength Intact, ROM Intact Neurological: Positive: Alert Psychological: Positive: Age Appropriate Behavior Skin: Positive: Other - There is an erythematous rash in a dermatomal distribution with some vesicles starting the lower thoracic area wrapping around the right lateral chest into the upper abdomen. Consistent with shingles. Course/Dx - Diagnoses Provider Diagnosis: Shingles Discharge ED - Sign-Out/Discharge Documenting (check all that apply): Patient Departure All imaging exams completed and their final reports reviewed: No Studies - Discharge Plan Condition: Stable Disposition: HOME Prescriptions: Valacyclovir HCl [Valacyclovir] 1 gm PO TID #30 tab Patient Education Materials: Danny (ED) Referrals: Yen Bills MD [Primary Care Provider] - Additional Instructions: FOLLOW UP WITH YOUR DOCTOR IF NOT COMPLETELY IMPROVED. GET REEVALUATED SOONER IF WORSE OR ANY QUESTIONS OR CONCERNS. - Billing Disposition and Condition Condition: STABLE Disposition: Home
== END 2019-07-05 11:24 | disposition home or self-care (01) ==
LOC: UCCORT 10:33
DX: B02.9 Zoster without complications (principal)
CPT/HCPCS: 99212; G0463